=== PATIENT | female | born 1940 | race Caucasian/White ===

== ENCOUNTER 2016-09-15 11:02 | Emergency (ER) | payer MEDICARE, MEDICAID ==
[~2016-09-15] VITALS: Ht 162.6 cm; Wt 79.4 kg
--- NOTE | 2016-09-15 11:44 | ED General ---
General Chief Complaint: General Problems/Pain Stated Complaint: ARTHRITIS Nursing Triage Note: ARRIVED VIA WC WITH COMPLAINTS OF ARTHRITIC PAIN. STATES HER MOTRIN AND TYLENOL IS NOT WORKING. Nursing Sepsis Screen: No Definite Risk Source of Information: Patient Exam Limitations: No Limitations History of Present Illness Time Seen by Provider: 11:42 Initial Comments To ER with worsening pain and stiffness in her wrist, hand, finger, neck and all of her joints. She has a history of rheumatoid arthritis diagnosed by Dr. Christian her primary care provider in [place]. She states that years ago her sedimentation rate was 174. She takes Tylenol and Motrin for this because she states that she does not like to take medications other than natural medications. She has a box full of herbal supplements that she does take with her. She states she's had these symptoms for 26 years but they became worse recently to the point that she needs some steroids today. Timing/Duration: 1 Week Severity: Moderate Allergies and Home Medications Allergies Coded Allergies: Penicillins (Verified Allergy, Severe, RASH, 09/15/16) procaine (Verified Allergy, Severe, HIVES, 09/15/16) meperidine (Verified Adverse Reaction, Intermediate, SLEEP, 09/15/16) Home Medications Allopurinol 300 Mg Tablet, 300 MG PO DAILY, (Reported) Alprazolam 0.5 Mg Tablet, 0.5 MG PO TID PRN for ANXIETY, (Reported) Furosemide 40 Mg Tablet, 40 MG PO BID, (Reported) Glimepiride 4 Mg Tablet, 4 MG PO DAILY, (Reported) Pramipexole 0.125 Mg Tablet, 0.125 MG PO HS, (Reported) Simvastatin 20 Mg Tablet, 20 MG PO HS, (Reported) Constitutional: see HPI EENTM: see HPI Respiratory: no symptoms reported Cardiovascular: no symptoms reported Genitourinary: no symptoms reported Musculoskeletal: see HPI, joint pain Skin: no symptoms reported Psychiatric/Neurological: No Symptoms Reported Hematologic/Lymphatic: No Symptoms Reported Past [place]dt[place]-Skmzzc-Qkdvpr Hx Patient Social History Recent Foreign Travel: No Contact w/Someone Who Travel: No Recent Infectious Disease Expo: No Physical Exam Vital Signs Vital Sign - Last 12Hours 09/15/16 11:30 Temp 98.0 Pulse 106 Resp 16 B/P (MAP) 173/83 Pulse Ox 84 O2 Delivery Room Air Capillary Refill : Less Than 3 Seconds General Appearance: No Apparent Distress, WD/WN Eyes: Bilateral Eye EOMI, Bilateral Eye Normal Inspection, Bilateral Eye PERRL HEENT: PERRL/EOMI, TMs Normal Neck: Full Range of Motion, Normal Inspection Respiratory: No Accessory Muscle Use, No Respiratory Distress Cardiovascular: Regular Rate, Rhythm, Normal Peripheral Pulses Gastrointestinal: Non Tender, Soft Extremity: Other (she does have erythema slightly with some ulnar deviation of the fingers at the MCP joint and enlargement of the MCP joints. AcipHex both hands.) Neurologic/Psychiatric: Alert, Oriented x3, No Motor/Sensory Deficits Skin: Normal Color, Warm/Dry Progress/Results/Core Measures Results/Orders My Orders Orders - AYAAN BROWN APRN Prednisone Tablet (Deltasone Tablet) (09/15/16 11:45) Vital Signs/I&O Vital Sign - Last 12Hours 09/15/16 11:30 Temp 98.0 Pulse 106 Resp 16 B/P (MAP) 173/83 Pulse Ox 84 O2 Delivery Room Air Blood Pressure Mean: 113 Departure Impression Impression: Primary Impression: Rheumatoid arthritis flare Disposition: 01 HOME, SELF-CARE Condition: Stable Departure-Patient Inst. Decision time for Depature: 11:57 Referrals: CHARMAINE CHRISTIAN DO (PCP/Family) Primary Care Physician Patient Instructions: Rheumatoid Arthritis Add. Discharge Instructions: 1. Steroids as directed 2. Return to ER for any concerns such as worsening pain, fevers or worsening swelling 3. Follow-up with Dr. Christian for a referral to rheumatology. All discharge instructions reviewed with patient and/or family. Voiced understanding. Scripts Prednisone (Prednisone) 5 Mg Tablet 50 MG PO UD, #65 TAB Take 50 mg on days 1 and 2 and then reduced by 5 mg daily until gone Prov: AYAAN BROWN APRN 09/15/16 Copy Copies To 1: CHARMAINE CHRISTIAN PETER J APRN Sep 15, 2016 11:44
[2016-09-15] MEDS ORDERED: predniSONE 20 MG TAB PO ONE (11:45)
[2016-09-15] MEDS ORDERED: PRAM0.12 PO (11:47)
[2016-09-15] MEDS ORDERED: ALPR0.5T PO (11:47)
[2016-09-15] MEDS ORDERED: GLIM4TAB PO (11:47)
[2016-09-15] MEDS ORDERED: ALLO300T2 PO (11:47)
[2016-09-15] MEDS ORDERED: FURO40TA4 PO (11:47)
[2016-09-15] MEDS ORDERED: SIMV20TA3 PO (11:47)
[2016-09-15] MEDS ORDERED: PRED5TAB PO (12:01)
[2016-09-15 12:12] VITALS: BP 153/81
== END 2016-09-15 12:12 | disposition home or self-care (01) ==
LOC: EDUNIT# 11:02 → ER 11:04 → EDBD 11:04 → ER 12:12
DX: M06.9 Rheumatoid arthritis, unspecified (principal)
CPT/HCPCS: 99283

== ENCOUNTER → 2017-01-08 | Outpatient (CLI) | payer MEDICARE, MEDICAID ==
[~2017-01-08] MED LIST: ALLO300T2 PO; ALPR0.5T PO; ALPR0.5T7; CHOL100048; DOXY100T2 PO; FURO40TA4 PO; GLIM4TAB PO; INSU100I14; INSU100I29; POTA20TA15; PRAM0.12 PO; PRAM1TAB5; PRD20T; PRED5TAB PO; PROP10TA8; QUET25TA; SIMV20TA3 PO
[2017-01-08 12:02] LABS: BILIRUBIN,URINE NEGATIVE (NEGATIVE); KETONES,URINE NEGATIVE (NEGATIVE); LEUKOCYTE ESTERASE ,URINE 1+ (NEGATIVE); NITRITE,URINE NEGATIVE (NEGATIVE); PH,URINE 5 (5-9); PROTEIN,URINE 3+ (NEGATIVE); UROBILINOGEN,URINE NORMAL (NORMAL)
[2017-01-08 12:12] LABS: SQUAMOUS EPITHELIAL CELL,UR 0-2 /HPF
[2017-01-08 12:24] LABS: ALBUMIN 3.1 GM/DL (3.2-4.5); CALCIUM 9.1 MG/DL (8.5-10.1); CREATININE SERUM 1.95 MG/DL (0.60-1.30); PHOSPHORUS 3.4 MG/DL (2.3-4.7); POTASSIUM 3.8 MMOL/L (3.6-5.0)
[2017-01-08 12:24] LABS: PROTEIN/CREATININE RATIO 2.11
== END ==
LOC: LAB 11:27
PROVIDERS: ATTEND Internal Medicine Nephrology
DX: R60.0 Localized edema (principal); M10.9 Gout, unspecified; N18.4 Chronic kidney disease, stage 4 (severe); I77.6 Arteritis, unspecified
CPT/HCPCS: 36415; 80069; 81000; 82570; 84156; 84550

== ENCOUNTER 2017-01-09 16:01 | Emergency (ER) | payer MEDICARE, MEDICAID ==
[~2017-01-09] VITALS: Ht 160 cm; Wt 72.1 kg
[~2017-01-09 16:01] MED LIST changes: -ALPR0.5T7; -CHOL100048; -DOXY100T2 PO; -INSU100I14; -INSU100I29; -POTA20TA15; -PRAM1TAB5; -PRD20T; -PROP10TA8; -QUET25TA
[2017-01-09] MEDS ORDERED: INSU100I29 (16:24)
[2017-01-09] MEDS ORDERED: PRAM1TAB5 (16:24)
[2017-01-09] MEDS ORDERED: CHOL100048 (16:24)
[2017-01-09] MEDS ORDERED: QUET25TA (16:24)
[2017-01-09] MEDS ORDERED: PRD20T (16:24)
[2017-01-09] MEDS ORDERED: ALPR0.5T7 (16:24)
[2017-01-09] MEDS ORDERED: POTA20TA15 (16:24)
[2017-01-09] MEDS ORDERED: INSU100I14 (16:24)
[2017-01-09] MEDS ORDERED: PROP10TA8 (16:24)
[2017-01-09 16:40] LABS: BASOPHILS % (AUTO) 0 % (0-10); EOSINOPHILS % (AUTO) 0 % (0-10); LYMPHOCYTES % (AUTO) 7 % (12-44); MEAN CORPUSCULAR HEMOGLOBIN 30 PG (25-34); MEAN CORPUSCULAR HGB CONC 32 G/DL (32-36); MEAN CORPUSCULAR VOLUME 93 FL (80-99); MEAN PLATELET VOLUME 11.7 FL (7.4-10.4); MONOCYTES # (AUTO) 0.5 X 10^3 (0.0-1.0); MONOCYTES % (AUTO) 4 % (0-12); NEUTROPHILS # (AUTO) 12.5 X 10^3 (1.8-7.8); NEUTROPHILS % (AUTO) 89 % (42-75); PLATELET COUNT 204 10^3/uL (130-400); RED BLOOD COUNT 3.42 10^6/uL (4.35-5.85); RED CELL DISTRIBUTION WIDTH 15.9 % (10.0-14.5)
[2017-01-09 16:57] LABS: CALCIUM 9.5 MG/DL (8.5-10.1); CREATININE SERUM 1.63 MG/DL (0.60-1.30); MAGNESIUM 1.8 MG/DL (1.8-2.4); POTASSIUM 4.8 MMOL/L (3.6-5.0)
[2017-01-09 17:04] LABS: BAND NEUTROPHILS 0 %; BASOPHILS % (MANUAL) 0 %; EOSINOPHILS % (MANUAL) 0 %; LYMPHOCYTES % (MANUAL) 6 %; NEUTROPHILS % (MANUAL) 93 %
--- NOTE | 2017-01-09 17:09 | Diagnostic Imaging Report ---
Portable upright radiograph of the chest. INDICATION: Renal failure. FINDINGS: The heart size is mildly enlarged with minimal vascular congestion. No focal consolidation. No effusion or pneumothorax. The mediastinum and luis enrique appear unremarkable. IMPRESSION: Cardiomegaly with minimal vascular congestion. Dictated by: Dictated on workstation # [id number]
--- NOTE | 2017-01-09 17:30 | ED General ---
General Chief Complaint: General Problems/Pain Stated Complaint: KIDNEY FAILURE Nursing Triage Note: PT OUT OF CAR BY THIS RN, PT STATES SENT TO ED BY DR KLEIN, STATES NEEDS TO GET FLUID OFF, PT DAUGHTER STATES IS IN STAGE 4 RENAL FAILURE AND LEAKING FLUID FROM SWELLING IN FEET. DAUGHTER STATES HAS ULCER ON R HEEL Nursing Sepsis Screen: No Definite Risk Source of Information: Patient, Family Exam Limitations: No Limitations History of Present Illness Time Seen by Provider: 16:15 Initial Comments This 76-year-old woman presents to the emergency room accompanied by her daughter with complaints of persistent lower extremity edema despite increased Lasix use. She has wounds on her legs that are weeping. She has difficulty with mobility as of the edema. Apparently physical therapy was at the home earlier today and noted the patient to be confused from her baseline. Home health then assess the patient and felt her to be a little confused area daughter also states that her mentation is not at baseline. Patient is technically alert and oriented to person, place, and date. Wound care and contacted Dr. Blanchard, the patient's line tender flakeboard. Nursing staff at the office directed them to come to the emergency room for evaluation. I attempted to personally contact Dr. Cisneros and Dr. Blanchard. Neither providers were in the office. Patient has no fever or other acute complaints. She had lab work done at this facility yesterday. Those labs were reviewed. She is in renal failure with a creatinine of 1.95. Family reports she has stage 4 CKD. Allergies and Home Medications Allergies Coded Allergies: Penicillins (Verified Allergy, Severe, RASH, 09/15/16) procaine (Verified Allergy, Severe, HIVES, 09/15/16) codeine (Verified Allergy, Mild, 01/09/17) morphine (Verified Allergy, Mild, 01/09/17) fentanyl (Verified Allergy, Unknown, 01/09/17) meperidine (Verified Adverse Reaction, Intermediate, SLEEP, 09/15/16) Home Medications Allopurinol 300 Mg Tablet, 300 MG PO DAILY, (Reported) Alprazolam 0.5 Mg Tablet, 0.5 MG PO TID PRN for ANXIETY, (Reported) Alprazolam 0.5 Mg Tablet, (Reported) Cholecalciferol (Vitamin D3) 1,000 Unit Capsule, (Reported) Doxycycline Hyclate 100 Mg Tablet, 100 MG PO BID, #20 Prescribed by: VIC GRACIA on 01/09/17 191 Furosemide 40 Mg Tablet, 80 MG PO BID, (Reported) Insulin Aspart 300 Units/3 Ml Solution, (Reported) Insulin Detemir 100 Unit/1 Ml Insuln.pen, (Reported) Potassium Chloride 20 Meq Tab.er.prt, (Reported) Pramipexole 0.125 Mg Tablet, 0.125 MG PO HS, (Reported) Pramipexole Di-HCl 1 Mg Tablet, (Reported) Prednisone 20 Mg Tab, (Reported) Propranolol HCl 10 Mg Tablet, (Reported) Quetiapine Fumarate 25 Mg Tablet, (Reported) Simvastatin 20 Mg Tablet, 20 MG PO HS, (Reported) Constitutional: weakness EENTM: no symptoms reported Respiratory: no symptoms reported Cardiovascular: see HPI, edema Gastrointestinal: no symptoms reported Genitourinary: see HPI Musculoskeletal: no symptoms reported Skin: see HPI Psychiatric/Neurological: See HPI Hematologic/Lymphatic: No Symptoms Reported Immunological/Allergic: no symptoms reported Past Ljyxmzp-Fsaytg-Waloiq Hx Patient Social History Alcohol Use: Denies Use Recreational Drug Use: No Smoking Status: Former Smoker Recent Foreign Travel: No Contact w/Someone Who Travel: No Recent Infectious Disease Expo: No Recent Hopitalizations: No Physical Abuse: No Sexual Abuse: No Surgeries History of Surgeries: Yes (NERVE FUSION) Surgeries: Appendectomy, Gallbladder, Hysterectomy, Tubal Ligation Respiratory History of Respiratory Disorde: Yes Respiratory Disorders: COPD Cardiovascular History of Cardiac Disorders: No Neurological History of Neurological Disord: No Reproductive System : No Genitourinary History of Genitourinary Disor: Yes Genitourinary Disorders: Renal Failure (CKD) Gastrointestinal History of Gastrointestinal Di: No Musculoskeletal History of Musculoskeletal Dis: Yes Musculoskeletal Disorders: Rheumatoid Arthritis Endocrine History of Endocrine Disorders: Yes Endocrine Disorders: Diabetes, Non-Insulin dep HEENT History of HEENT Disorders: No Cancer History of Cancer: No Psychosocial History of Psychiatric Problem: No Suicide Risk Score: 0 Integumentary History of Skin or Integumenta: No Physical Exam Vital Signs Vital Sign - Last 12Hours 01/09/17 16:05 Temp 97.8 Pulse 71 Resp 18 B/P (MAP) 133/68 Pulse Ox 96 O2 Delivery Nasal Cannula O2 Flow Rate 3.00 Capillary Refill : Less Than 3 Seconds General Appearance: No Apparent Distress, WD/WN HEENT: PERRL/EOMI, Normal ENT Inspection Neck: Normal Inspection Respiratory: Lungs Clear, Normal Breath Sounds, No Accessory Muscle Use, No Respiratory Distress Cardiovascular: Regular Rate, Rhythm, No Murmur Gastrointestinal: Normal Bowel Sounds, Non Tender, Soft Extremity: Pedal Edema (severe pitting lower extremity edema equal bilaterally. Ruptured blisters with weeping on both extremities, especially on the right toes and left heel) Neurologic/Psychiatric: Alert, Oriented x3, Normal Mood/Affect, department specialist II-XII Norm as Tested, Motor Weakness (generalized) Skin: Normal Color, Warm/Dry, Other (patient had ruptured blister ulcer on the second right toe on the dorsal aspect and on the medial left heel. She had some other areas of minor skin breakdown and weeping on the lower legs.) Progress/Results/Core Measures Suspected Sepsis Recent Fever Within 48 Hours: No Infection Criteria Present: None New/Unexplained Altered Menta: No Sepsis Screen: No Definite Risk Sepsis Diagnosis: SIRS Temperature:97.8 Pulse: 71 Respiratory Rate: 18 Laboratory Tests 01/09/17 16:30: White Blood Count 14.0H Blood Pressure 133 /68 Mean: 89 Laboratory Tests 01/09/17 16:30: Creatinine 1.63H, Platelet Count 204 Results/Orders Lab Results Laboratory Tests Test 01/09/17 16:30 01/09/17 18:35 Range/Units White Blood Count 14.0 H 4.3-11.0 10^3/uL Red Blood Count 3.42 L 4.35-5.85 10^6/uL Hemoglobin 10.1 L 11.5-16.0 G/DL Hematocrit 32 L 35-52 % Mean Corpuscular Volume 93 80-99 FL Mean Corpuscular Hemoglobin 30 25-34 PG Mean Corpuscular Hemoglobin Concent 32 32-36 G/DL Red Cell Distribution Width 15.9 H 10.0-14.5 % Platelet Count 204 130-400 10^3/uL Mean Platelet Volume 11.7 H 7.4-10.4 FL Neutrophils (%) (Auto) 89 H 42-75 % Lymphocytes (%) (Auto) 7 L 12-44 % Monocytes (%) (Auto) 4 0-12 % Eosinophils (%) (Auto) 0 0-10 % Basophils (%) (Auto) 0 0-10 % Neutrophils # (Auto) 12.5 H 1.8-7.8 X 10^3 Lymphocytes # (Auto) 1.0 1.0-4.0 X 10^3 Monocytes # (Auto) 0.5 0.0-1.0 X 10^3 Eosinophils # (Auto) 0.0 0.0-0.3 10^3/uL Basophils # (Auto) 0.0 0.0-0.1 10^3/uL Neutrophils % (Manual) 93 % Lymphocytes % (Manual) 6 % Monocytes % (Manual) 1 % Eosinophils % (Manual) 0 % Basophils % (Manual) 0 % Band Neutrophils 0 % Elliptocytes SLIGHT Sodium Level 139 135-145 MMOL/L Potassium Level 4.8 3.6-5.0 MMOL/L Chloride Level 96 L 98-107 MMOL/L Carbon Dioxide Level 29 21-32 MMOL/L Anion Gap 14 5-14 MMOL/L Blood Urea Nitrogen 69 H 7-18 MG/DL Creatinine 1.63 H 0.60-1.30 MG/DL Estimat Glomerular Filtration Rate 31 BUN/Creatinine Ratio 42 Glucose Level 215 H 70-105 MG/DL Calcium Level 9.5 8.5-10.1 MG/DL Magnesium Level 1.8 1.8-2.4 MG/DL B-Type Natriuretic Peptide 194.3 H <100.0 PG/ML Urine Color YELLOW Urine Clarity CLEAR Urine pH 6 5-9 Urine Specific Barlow 1.010 L 1.016-1.022 Urine Protein 3+ H NEGATIVE Urine Glucose (UA) NEGATIVE NEGATIVE Urine Ketones NEGATIVE NEGATIVE Urine Nitrite NEGATIVE NEGATIVE Urine Bilirubin NEGATIVE NEGATIVE Urine Urobilinogen NORMAL NORMAL MG/DL Urine Leukocyte Esterase NEGATIVE NEGATIVE Urine RBC (Auto) 3+ H NEGATIVE Urine RBC 5-10 H /HPF Urine WBC NONE /HPF Urine Crystals PRESENT H /LPF Urine Amorphous Sediment FEW RODRIGO URATES H /LPF Urine Bacteria NONE /HPF Urine Casts NONE /LPF Urine Mucus NEGATIVE /LPF Urine Culture Indicated NO My Orders Orders - VIC VILLATORO MD Basic Metabolic Panel (01/09/17 16:22) Cbc With Automated Diff (01/09/17 16:22) Magnesium (01/09/17 16:22) Ua Culture If Indicated (01/09/17 16:22) Saline Lock/Iv-Start (01/09/17 16:22) BNP (01/09/17 16:25) Chest 1 View, Ap/Pa Only (01/09/17 16:25) Manual Differential (01/09/17 16:30) Vital Signs/I&O Vital Sign - Last 12Hours 01/09/17 16:05 Temp 97.8 Pulse 71 Resp 18 B/P (MAP) 133/68 Pulse Ox 96 O2 Delivery Nasal Cannula O2 Flow Rate 3.00 Capillary Refill : Less Than 3 Seconds Blood Pressure Mean: 89 Progress Note : Progress Note I attempted to contact both Dr. Cisneros and her line tender flakeboard. Neither were available. I did discuss the leg edema and wounds with Dr. Tim. He recommended elevation. Since patient has congestive heart failure, he did not recommend compressive wrapping. Wound culture was collected from the larger blister wound on the left medial heel. Patient was prescribed doxycycline as it should be safe in renal failure. I advised that they contact the line tender flakeboard office tomorrow and asked to speak with the line tender flakeboard or line tender flakeboard on-call regarding further treatment of the edema. See discharge instructions. Patient is already on high-dose diuretics and I did not want to alter that without the line tender flakeboard input. Patient had leukocytosis. Family suspected she had urinary tract infection but UA performed yesterday and again today showed no evidence of UTI. Patient was empirically prescribed doxycycline for suspected skin wounds. They're advised to follow-up with a market research specialist as soon as possible. The phone number for [facility] was provided. Patient remained alert and oriented throughout her ER stay. Diagnostic Imaging Diagonstic Imaging: Xray Plain Films/CT/US/NM/MRI: chest Comments NAME: [facility] REC#: [id number] PT STATUS: REG ER : 1940 PHYSICIAN: VIC VILLATORO MD ADMIT DATE: 01/09/17/ER Signed Date of Exam: 01/09/17 CHEST 1 VIEW, AP/PA ONLY Portable upright radiograph of the chest. INDICATION: Renal failure. FINDINGS: The heart size is mildly enlarged with minimal vascular congestion. No focal consolidation. No effusion or pneumothorax. The mediastinum and luis enrique appear unremarkable. IMPRESSION: Cardiomegaly with minimal vascular congestion. Dictated by: Dictated on workstation # [id number] Dict: 01/09/17 1656 Trans: 01/09/171802 Interpreted by: ITZ VALDES MD Electronically signed by: ITZ VALDES MD 01/09/171802 Departure Impression Impression: Primary Impression: Pitting edema Additional Impressions: Chronic renal failure Qualified Codes: N18.9 - Chronic kidney disease, unspecified Confusion Pressure ulcer of left heel Qualified Codes: L89.629 - Pressure ulcer of left heel, unspecified stage Pressure ulcer of toe Qualified Codes: L89.899 - Pressure ulcer of other site, unspecified stage Leukocytosis Qualified Codes: D72.829 - Elevated white blood cell count, unspecified Disposition: 01 HOME, SELF-CARE Condition: Stable Departure-Patient Inst. Decision time for Depature: 19:12 Referrals: CHARMAINE CISNEROS DO (PCP/Family) Primary Care Physician Patient Instructions: How to Prevent Pressure Ulcers Add. Discharge Instructions: Complete your antibiotics as prescribed. Contact your line tender flakeboard or primary care provider tomorrow to discuss further treatment of edema. Until then, continue with Lasix as previously prescribed. Elevate the lower extremities as much as possible. The best position for draining the edema is to lie flat on a bed with lower legs elevated on multiple pillows such that the level of the lower legs is higher than the level of the heart. Follow-up on the wound culture collected in the ER. Results should be available in about 48 hours. Establish with wound care as soon as possible. The number for [facility] is [phone]. Return to the ER if symptoms worsen, especially if you develop fever greater than 100. Perform daily weights if possible and present a log of daily weights to your line tender flakeboard and primary care provider. Change lower extremity dressings daily or more often if they become soiled. All discharge instructions reviewed with patient and/or family. Voiced understanding. Scripts Doxycycline Hyclate (Doxycycline Hyclate) 100 Mg Tablet 100 MG PO BID, #20 TAB Prov: VIC VILLATORO MD 01/09/17 Copy Copies To 1: CHARMAINE CISNEROS JOSHUA T MD Jan 09, 2017 17:30
[2017-01-09 18:43] LABS: BILIRUBIN,URINE NEGATIVE (NEGATIVE); KETONES,URINE NEGATIVE (NEGATIVE); LEUKOCYTE ESTERASE ,URINE NEGATIVE (NEGATIVE); NITRITE,URINE NEGATIVE (NEGATIVE); PH,URINE 6 (5-9); PROTEIN,URINE 3+ (NEGATIVE); UROBILINOGEN,URINE NORMAL (NORMAL)
[2017-01-09] MEDS ORDERED: DOXY100T2 PO (19:16)
[2017-01-09 19:27] VITALS: BP 139/87
== END 2017-01-09 19:29 | disposition home or self-care (01) ==
LOC: EDUNIT# 16:01 → ER 16:02
DX: L89.629 Pressure ulcer of left heel, unspecified stage (principal); L89.899 Pressure ulcer of other site, unspecified stage; R41.0 Disorientation, unspecified; D72.829 Elevated white blood cell count, unspecified; E11.22 Type 2 diabetes mellitus with diabetic chronic kidney disease; N18.9 Chronic kidney disease, unspecified; J44.9 Chronic obstructive pulmonary disease, unspecified; M06.9 Rheumatoid arthritis, unspecified; Z79.4 Long term (current) use of insulin; Z87.891 Personal history of nicotine dependence; Z90.710 Acquired absence of both cervix and uterus; Z90.49 Acquired absence of other specified parts of digestive tract; Z98.51 Tubal ligation status
CPT/HCPCS: 36415; 71010; 80048; 81000; 83735; 83880; 85007; 85027; 87070; 87077; 87186; 87205

== ENCOUNTER 2017-03-09 11:54 | Inpatient (IN) | payer MEDICARE, MEDICAID ==
[~2017-03-09] VITALS: Ht 160 cm; Wt 71.9 kg
[~2017-03-09 11:54] MED LIST changes: +ALLO100T PO; +ALPR0.5T7; +ATOR10TA66 PO; +CEFD300C3 PO; +CHOL100048 PO; +DOCU-143 PO; +DOXY100T2 PO; +FURO80TA3 PO; +HYDR-3820 PO; +INSU100I14 SC; +INSU100I29 SC; +INSU100V5 SQ; +MELA10CA2 PO; +METO2.5T PO; +NICO4LOZ47 BC; +PANT40TA2 PO; +POTA20TA15 PO; +PRAM0.252 PO; +PRAM1TAB2 PO; +PRAM1TAB5; +PRD20T PO; +PROP10TA8 PO; +QUET25TA PO; +RT-ALBUINH IH; +VITS42.53 TP; +ZINC28PA TP
--- OUTSIDE RECORDS SUMMARY | 2017-03-09 12:07 | XMS REPORT | Continuity of Care Document ---
Author Author [facility] Organization [facility] Address Unknown Phone Unavailable Allergies Active Description Code Type Severity Reaction Onset Reported/Identified Relationship to Patient Clinical Status Yes Penicillins [id number] Drug Allergy Severe RASH 09/15/2016 Yes procaine [id number] Drug Allergy Severe HIVES 09/15/2016 Yes meperidine [id number] Drug Allergy Moderate SLEEP 09/15/2016 Yes No Known Drug Allergies [id number] Drug Allergy Unknown N/A 09/15/2016 Yes codeine [id number] Drug Allergy Mild N/A 01/09/2017 Yes morphine [id number] Drug Allergy Mild N/A 01/09/2017 Yes fentanyl [id number] Drug Allergy Unknown N/A 01/09/2017 Medications There is no data. Problems Date Dx Coded Attending Type Code Diagnosis Diagnosed By 06/21/2015 IZABELLA CALI MD Ot E04.1 NONTOXIC SINGLE THYROID NODULE 06/21/2015 VIRAJ LOZA, IZABELLA Barrios Ot 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, UNSPECIFIED 06/21/2015 IZABELLA CALI MD P Ot R53.83 OTHER FATIGUE 06/21/2015 IZABELLA CALI MD Ot E04.1 NONTOXIC SINGLE THYROID NODULE 06/21/2015 IZABELLA CALI MD Ot 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, UNSPECIFIED 06/21/2015 IZABELLA CALI MD P Ot R53.83 OTHER FATIGUE 07/08/2015 IZABELLA CALI MD Ot E04.1 NONTOXIC SINGLE THYROID NODULE 07/08/2015 IZABELLA CALI MD Ot 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, UNSPECIFIED 07/08/2015 IZABELLA CALI MD Ot R53.83 OTHER FATIGUE 07/20/2015 IZABELLA CALI MD Ot E04.1 NONTOXIC SINGLE THYROID NODULE 07/20/2015 IZABELLA CALI MD Ot 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, UNSPECIFIED 07/20/2015 IZABELLA CALI MD Ot R53.83 OTHER FATIGUE 09/15/2016 AYAAN BROWN WORM RAISER Ot M06.9 RHEUMATOID ARTHRITIS, UNSPECIFIED 09/15/2016 AYAAN BROWN WORM RAISER Ot M25.631 STIFFNESS OF RIGHT WRIST, NOT ELSEWHERE 09/15/2016 IZABELLA CALI MD Ot E04.1 NONTOXIC SINGLE THYROID NODULE 09/15/2016 IZABELLA CALI MD Ot 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, UNSPECIFIED 09/15/2016 IZABELLA CALI MD Ot R53.83 OTHER FATIGUE 09/19/2016 AYAAN BROWN WORM RAISER Ot M06.9 RHEUMATOID ARTHRITIS, UNSPECIFIED 09/19/2016 AYAAN BROWN WORM RAISER Ot M25.631 STIFFNESS OF RIGHT WRIST, NOT ELSEWHERE 01/09/2017 ANTONIA HOUSE MD Ot I77.6 ARTERITIS, UNSPECIFIED 01/09/2017 ANTONIA HOUSE MD, Ot M10.9 GOUT, UNSPECIFIED 01/09/2017 ANTONIA HOUSE MD, Ot N18.4 CHRONIC KIDNEY DISEASE, STAGE 4 (SEVERE) 01/09/2017 ANTONIA HOUSE MD Ot R60.0 LOCALIZED EDEMA 01/09/2017 VIC VILLATORO MD Ot D72.829 ELEVATED WHITE BLOOD CELL COUNT, UNSPECI 01/09/2017 VIC VILLATORO MD Ot 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 01/09/2017 VIC VILLATORO MD, Ot J44.9 CHRONIC OBSTRUCTIVE PULMONARY DISEASE, U 01/09/2017 VIC VILLATORO MD Ot L89.629 PRESSURE ULCER OF LEFT HEEL, UNSPECIFIED 01/09/2017 VIC VILLATORO MD Ot L89.899 PRESSURE ULCER OF OTHER SITE, UNSPECIFIE 01/09/2017 VIC VILLATORO MD Ot M06.9 RHEUMATOID ARTHRITIS, UNSPECIFIED 01/09/2017 VIC VILLATORO MD Ot N18.9 CHRONIC KIDNEY DISEASE, UNSPECIFIED 01/09/2017 VIC VILLATORO MD Ot R41.0 DISORIENTATION, UNSPECIFIED 01/09/2017 VIC VILLATORO MD Ot R60.0 LOCALIZED EDEMA 01/09/2017 VIC VILLATORO MD Ot Z79.4 FLIGHT SUPERINTENDENT (CURRENT) USE OF INSULIN 01/09/2017 VIC VILLATORO MD, Ot Z87.891 PERSONAL HISTORY OF NICOTINE DEPENDENCE 01/09/2017 VIC VILLATORO MD Ot Z90.49 ACQUIRED ABSENCE OF OTHER SPECIFIED PART 01/09/2017 VIC VILLATORO MD, Ot Z90.710 ACQUIRED ABSENCE OF BOTH CERVIX AND UTER 01/09/2017 VIC VILLATORO MD Ot Z98.51 TUBAL LIGATION STATUS 01/30/2017 ANTONIA HOUSE MD Ot I77.6 ARTERITIS, UNSPECIFIED 01/30/2017 ANTONIA HOUSE MD Ot M10.9 GOUT, UNSPECIFIED 01/30/2017 ANTONIA HOUSE MD Ot N18.4 CHRONIC KIDNEY DISEASE, STAGE 4 (SEVERE) 01/30/2017 ANTONIA HOUSE MD Ot R60.0 LOCALIZED EDEMA 02/13/2017 ANTONIA HOUSE MD Ot I77.6 ARTERITIS, UNSPECIFIED 02/13/2017 ANTONIA HOUSE MD Ot M10.9 GOUT, UNSPECIFIED 02/13/2017 ANTONIA HOUSE MD Ot N18.4 CHRONIC KIDNEY DISEASE, STAGE 4 (SEVERE) 02/13/2017 ANTONIA HOUSE MD Ot R60.0 LOCALIZED EDEMA 02/27/2017 IZABELLA CALI MD Ot E04.1 NONTOXIC SINGLE THYROID NODULE 02/27/2017 IZABELLA CALI MD Ot 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, UNSPECIFIED 02/27/2017 VIRAJ LOZA, IZABELLA Barrios Ot R53.83 OTHER FATIGUE 02/27/2017 ANTONIA HOUSE MD Ot I77.6 ARTERITIS, UNSPECIFIED 02/27/2017 ANTONIA HOUSE MD Ot M10.9 GOUT, UNSPECIFIED 02/27/2017 ANTONIA HOUSE MD Ot N18.4 CHRONIC KIDNEY DISEASE, STAGE 4 (SEVERE) 02/27/2017 ANTONIA HOUSE MD Ot R60.0 LOCALIZED EDEMA 02/28/2017 RAMILA LOZA, NIVIA Ackerman Ot A41.9 SEPSIS, UNSPECIFIED ORGANISM 02/28/2017 NIVIA MCGRATH MD Ot A41.9 SEPSIS, UNSPECIFIED ORGANISM 02/28/2017 NIVIA MCGRATH MD, Ot 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 02/28/2017 NIVIA MCGRATH MD, Ot E78.00 PURE HYPERCHOLESTEROLEMIA, UNSPECIFIED 02/28/2017 NIVIA MCGRATH MD, Ot F41.9 ANXIETY DISORDER, UNSPECIFIED 02/28/2017 NIVIA MCGRATH MD Ot G25.81 RESTLESS LEGS SYNDROME 02/28/2017 NIVIA MCGRATH MD Ot I10 ESSENTIAL (PRIMARY) HYPERTENSION 02/28/2017 NIVIA MCGRATH MD, Ot I25.10 ATHSCL HEART DISEASE OF [place] CORONARY 02/28/2017 NIVIA MCGRATH MD, Ot I48.92 UNSPECIFIED ATRIAL FLUTTER 02/28/2017 NIVIA MCGRATH MD, Ot J18.9 PNEUMONIA, UNSPECIFIED ORGANISM 02/28/2017 NIVIA MCGRATH MD, Ot J44.0 CHRONIC OBSTRUCTIVE PULMON DISEASE W ACU 02/28/2017 NIVIA MCGRATH MD, Ot K21.9 GASTRO-ESOPHAGEAL REFLUX DISEASE WITHOUT 02/28/2017 NIVIA MCGRATH MD, Ot M06.9 RHEUMATOID ARTHRITIS, UNSPECIFIED 02/28/2017 NIVIA MCGRATH MD, Ot M10.9 GOUT, UNSPECIFIED 02/28/2017 NIVIA MCGRATH MD, Ot N18.3 CHRONIC KIDNEY DISEASE, STAGE 3 (MODERAT 02/28/2017 NIVIA MCGRATH MD, Ot R53.1 WEAKNESS 02/28/2017 NIVIA MCGRATH MD, Ot Z20.828 CONTACT W AND EXPOSURE TO OTH VIRAL COMM 02/28/2017 NIVIA MCGRATH MD Ot Z79.4 FLIGHT SUPERINTENDENT (CURRENT) USE OF INSULIN 02/28/2017 NIVIA MCGRATH MD Ot Z86.79 PERSONAL HISTORY OF OTHER DISEASES OF TH 03/01/2017 NIVIA MCGRATH MD, Ot A41.9 SEPSIS, UNSPECIFIED ORGANISM 03/01/2017 NIVIA MCGRATH MD Ot 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 03/01/2017 NIVIA MCGRATH MD, Ot E78.00 PURE HYPERCHOLESTEROLEMIA, UNSPECIFIED 03/01/2017 RAMILA MD, NIVIA M Ot F41.9 ANXIETY DISORDER, UNSPECIFIED 03/01/2017 NIVIA MCGRATH MD, Ot G25.81 RESTLESS LEGS SYNDROME 03/01/2017 NIVIA MCGRATH MD, Ot I10 ESSENTIAL (PRIMARY) HYPERTENSION 03/01/2017 NIVIA MCGRATH MD, Ot I25.10 ATHSCL HEART DISEASE OF [place] CORONARY 03/01/2017 NIVIA MCGRATH MD, Ot I48.92 UNSPECIFIED ATRIAL FLUTTER 03/01/2017 NIVIA MCGRATH MD, Ot J18.9 PNEUMONIA, UNSPECIFIED ORGANISM 03/01/2017 NIVIA MCGRATH MD, Ot J44.0 CHRONIC OBSTRUCTIVE PULMON DISEASE W ACU 03/01/2017 NIVIA MCGRATH MD, Ot K21.9 GASTRO-ESOPHAGEAL REFLUX DISEASE WITHOUT 03/01/2017 NIVIA MCGRATH MD, Ot M06.9 RHEUMATOID ARTHRITIS, UNSPECIFIED 03/01/2017 NIVIA MCGRATH MD, Ot M10.9 GOUT, UNSPECIFIED 03/01/2017 NIVIA MCGRATH MD, Ot N18.3 CHRONIC KIDNEY DISEASE, STAGE 3 (MODERAT 03/01/2017 NIVIA MCGRATH MD, Ot R53.1 WEAKNESS 03/01/2017 NIVIA MCGRATH MD, Ot R60.9 EDEMA, UNSPECIFIED 03/01/2017 NIVIA MCGRATH MD, Ot Z20.828 CONTACT W AND EXPOSURE TO OTH VIRAL COMM 03/01/2017 NIVIA MCGRATH MD Ot Z79.4 FLIGHT SUPERINTENDENT (CURRENT) USE OF INSULIN 03/01/2017 NIVIA MCGRATH MD, Ot Z86.79 PERSONAL HISTORY OF OTHER DISEASES OF TH 03/01/2017 NIVIA MCGRATH MD, Ot Z87.891 PERSONAL HISTORY OF NICOTINE DEPENDENCE Procedures There is no data. Results Test Result Range Complete urinalysis with reflex to culture - 01/08/17 11:59 Urine color determination YELLOW NRG Urine clarity determination CLEAR NRG Urine pH measurement by test strip 5 5-9 Specific gravity of urine by test strip 1.010 1.016- 1.022 Urine protein assay by test strip, semi-quantitative 3+ NEGATIVE Urine glucose detection by automated test strip 3+ NEGATIVE Erythrocytes detection in urine sediment by light microscopy 3+ NEGATIVE Urine ketones detection by automated test strip NEGATIVE NEGATIVE Urine nitrite detection by test strip NEGATIVE NEGATIVE Urine total bilirubin detection by test strip NEGATIVE NEGATIVE Urine urobilinogen measurement by automated test strip (mass/volume) NORMAL NORMAL Urine leukocyte esterase detection by dipstick 1+ NEGATIVE Automated urine sediment erythrocyte count by microscopy (number/high power field) [HPF] NRG Automated urine sediment leukocyte count by microscopy (number/high power field ) [HPF] NRG Bacteria detection in urine sediment by light microscopy NEGATIVE NRG Squamous epithelial cells detection in urine sediment by light microscopy 0-2 NRG Crystals detection in urine sediment by light microscopy NONE NRG Casts detection in urine sediment by light microscopy PRESENT NRG Mucus detection in urine sediment by light microscopy NEGATIVE NRG Complete urinalysis with reflex to culture NO NRG Hyaline casts detection in urine sediment by light microscopy 2-5 NRG Urine protein/creatinine mass ratio - 01/08/17 11:59 Urine protein measurement (mass/volume) 57 mg/dL 6-12 Urine creatinine measurement (mass/volume) 27 mg/dL 30- 125 Urine protein/creatinine mass ratio 2.11 NRG Serum or plasma renal function panel (Na, K, Cl, CO2, BUN, Cr, glucose,Ca, phos , alb) - 01/08/17 12:00 Serum or plasma sodium measurement (moles/volume) 136 mmol/L 135-145 Serum or plasma potassium measurement (moles/volume) 3.8 mmol/L 3.6-5.0 Serum or plasma chloride measurement (moles/volume) 95 mmol/L 98-107 Carbon dioxide 29 mmol/L 21-32 Serum or plasma anion gap determination (moles/volume) 12 mmol/L 5-14 Serum or plasma urea nitrogen measurement (mass/volume) 75 mg/dL 7-18 Serum or plasma creatinine measurement (mass/volume) 1.95 mg/dL 0.60-1.30 Serum or plasma urea nitrogen/creatinine mass ratio 38 NRG Serum or plasma creatinine measurement with calculation of estimated glomerular filtration rate 25 NRG Serum or plasma glucose measurement (mass/volume) 416 mg/dL 70-105 Serum or plasma calcium measurement (mass/volume) 9.1 mg/dL 8.5-10.1 Serum or plasma albumin measurement (mass/volume) 3.1 g/dL 3.2-4.5 Serum or plasma phosphate measurement (mass/volume) 3.4 mg/dL 2.3-4.7 Serum or plasma uric acid measurement (mass/volume) - 01/08/17 12:00 Serum or plasma uric acid measurement (mass/volume) 6.0 mg/dL 2.6-7.2 Complete blood count (CBC) with automated white blood cell (WBC) differential - 01/09/17 16:30 Blood leukocytes automated count (number/volume) 14.0 10*3/uL 4.3-11.0 Blood erythrocytes automated count (number/volume) 3.42 10*6/uL 4.35-5.85 Venous blood hemoglobin measurement (mass/volume) 10.1 g/dL 11.5-16.0 Blood hematocrit (volume fraction) 32 % 35-52 Automated erythrocyte mean corpuscular volume 93 [foz_us] 80-99 Automated erythrocyte mean corpuscular hemoglobin (mass per erythrocyte) 30 pg 25-34 Automated erythrocyte mean corpuscular hemoglobin concentration measurement ( mass/volume) 32 g/dL 32-36 Automated erythrocyte distribution width ratio 15.9 % 10.0-14.5 Automated blood platelet count (count/volume) 204 10*3/uL 130-400 Automated blood platelet mean volume measurement 11.7 [foz_us] 7.4-10.4 Automated blood neutrophils/100 leukocytes 89 % 42-75 Automated blood lymphocytes/100 leukocytes 7 % 12-44 Blood monocytes/100 leukocytes 4 % 0-12 Automated blood eosinophils/100 leukocytes 0 % 0-10 Automated blood basophils/100 leukocytes 0 % 0-10 Blood neutrophils automated count (number/volume) 12.5 10*3 1.8-7.8 Blood lymphocytes automated count (number/volume) 1.0 10*3 1.0-4.0 Blood monocytes automated count (number/volume) 0.5 10*3 0.0-1.0 Automated eosinophil count 0.0 10*3/uL 0.0-0.3 Automated blood basophil count (count/volume) 0.0 10*3/uL 0.0-0.1 Whole blood basic metabolic panel - 01/09/17 16:30 Serum or plasma sodium measurement (moles/volume) 139 mmol/L 135-145 Serum or plasma potassium measurement (moles/volume) 4.8 mmol/L 3.6-5.0 Serum or plasma chloride measurement (moles/volume) 96 mmol/L 98-107 Carbon dioxide 29 mmol/L 21-32 Serum or plasma anion gap determination (moles/volume) 14 mmol/L 5-14 Serum or plasma urea nitrogen measurement (mass/volume) 69 mg/dL 7-18 Serum or plasma creatinine measurement (mass/volume) 1.63 mg/dL 0.60-1.30 Serum or plasma urea nitrogen/creatinine mass ratio 42 NRG Serum or plasma creatinine measurement with calculation of estimated glomerular filtration rate 31 NRG Serum or plasma glucose measurement (mass/volume) 215 mg/dL 70-105 Serum or plasma calcium measurement (mass/volume) 9.5 mg/dL 8.5-10.1 Magnesium - 01/09/17 16:30 Magnesium 1.8 mg/dL 1.8-2.4 Blood manual differential performed detection - 01/09/17 16:30 Blood monocytes/100 leukocytes 1 % NRG Manual blood segmented neutrophils/100 leukocytes 93 % NRG Blood band neutrophils/100 leukocytes 0 % NRG Manual blood lymphocytes/100 leukocytes 6 % NRG Manual eosinophils/100 leukocytes in nose 0 % NRG Manual blood basophils/100 leukocytes 0 % NRG Blood ovalocytes detection by light microscopy SLIGHT NRG Serum or plasma lithium measurement (moles/volume) - 01/09/17 16:30 BNP level 194.3 pg/mL <100.0 Complete urinalysis with reflex to culture - 01/09/17 18:35 Urine color determination YELLOW NRG Urine clarity determination CLEAR NRG Urine pH measurement by test strip 6 5-9 Specific gravity of urine by test strip 1.010 1.016- 1.022 Urine protein assay by test strip, semi-quantitative 3+ NEGATIVE Urine glucose detection by automated test strip NEGATIVE NEGATIVE Erythrocytes detection in urine sediment by light microscopy 3+ NEGATIVE Urine ketones detection by automated test strip NEGATIVE NEGATIVE Urine nitrite detection by test strip NEGATIVE NEGATIVE Urine total bilirubin detection by test strip NEGATIVE NEGATIVE Urine urobilinogen measurement by automated test strip (mass/volume) NORMAL NORMAL Urine leukocyte esterase detection by dipstick NEGATIVE NEGATIVE Automated urine sediment erythrocyte count by microscopy (number/high power field) [HPF] NRG Automated urine sediment leukocyte count by microscopy (number/high power field ) NONE NRG Bacteria detection in urine sediment by light microscopy NONE NRG Crystals detection in urine sediment by light microscopy PRESENT NRG Casts detection in urine sediment by light microscopy NONE NRG Mucus detection in urine sediment by light microscopy NEGATIVE NRG Complete urinalysis with reflex to culture NO NRG Amorphous sediment detection in urine sediment by light microscopy FEW RODRIGO URATES NRG Gram stain microscopy - 01/09/17 19:01 GRAM STAIN RESULT NUMEROUS GRAM POSITIVE COCCI RESEMBLING STAPH NRG Bacteria identification in wound by culture - 01/09/17 19:01 Bacteria identification in wound by culture [id number] NRG FREE TEXT EXTERNAL SENSITIVITY REPORTED 01/11/17 10:50 NRG QUANTITY OF GROWTH Abundant Growth NRG MRSA AGAR MRSA isolated (Screening test for MRSA is positive) NRG CALL POSITIVES (F1 HELP) CALLED TO [facility], ER 01/11/17 12:15 BY S.T. NRG Bacterial susceptibility panel - 01/09/17 19:01 Oxacillin susceptibility test by minimum inhibitory concentration > = NRG Gentamicin susceptibility test by minimum inhibitory concentration < = NRG Clindamycin susceptibility test by minimum inhibitory concentration >= NRG Erythromycin susceptibility test by minimum inhibitory concentration >= NRG Trimethoprim/sulfamethoxazole susceptibility test by minimum inhibitoryconcentration S NRG Vancomycin susceptibility test by minimum inhibitory concentration 1 NRG Levofloxacin susceptibility test by minimum inhibitory concentration 4 NRG Rifampin susceptibility test by minimum inhibitory concentration <= NRG Tetracycline susceptibility test by minimum inhibitory concentration >= NRG Ciprofloxacin susceptibility test by minimum inhibitory concentration R NRG Influenza virus A and B antigen detection - 02/27/17 12:10 FLU RESULT NEGATIVE FOR INFLUENZA A AND B ANTIGENS BY IA NRG Complete blood count (CBC) with automated white blood cell (WBC) differential - 02/27/17 12:14 Blood leukocytes automated count (number/volume) 17.5 10*3/uL 4.3-11.0 Blood erythrocytes automated count (number/volume) 3.48 10*6/uL 4.35-5.85 Venous blood hemoglobin measurement (mass/volume) 10.4 g/dL 11.5-16.0 Blood hematocrit (volume fraction) 32 % 35-52 Automated erythrocyte mean corpuscular volume 93 [foz_us] 80-99 Automated erythrocyte mean corpuscular hemoglobin (mass per erythrocyte) 30 pg 25-34 Automated erythrocyte mean corpuscular hemoglobin concentration measurement ( mass/volume) 32 g/dL 32-36 Automated erythrocyte distribution width ratio 16.4 % 10.0-14.5 Automated blood platelet count (count/volume) 181 10*3/uL 130-400 Automated blood platelet mean volume measurement 10.7 [foz_us] 7.4-10.4 Automated blood neutrophils/100 leukocytes 85 % 42-75 Automated blood lymphocytes/100 leukocytes 10 % 12-44 Blood monocytes/100 leukocytes 5 % 0-12 Automated blood eosinophils/100 leukocytes 0 % 0-10 Automated blood basophils/100 leukocytes 0 % 0-10 Blood neutrophils automated count (number/volume) 14.9 10*3 1.8-7.8 Blood lymphocytes automated count (number/volume) 1.7 10*3 1.0-4.0 Blood monocytes automated count (number/volume) 0.8 10*3 0.0-1.0 Automated eosinophil count 0.0 10*3/uL 0.0-0.3 Automated blood basophil count (count/volume) 0.1 10*3/uL 0.0-0.1 Blood lactic acid measurement (moles/volume) - 02/27/17 12:14 Blood lactic acid measurement (moles/volume) 1.05 mmol/L 0.50-2.00 PT panel in platelet poor plasma by coagulation assay - 02/27/17 12:14 Prothrombin time (PT) in platelet poor plasma by coagulation assay 12.8 s 12.2-14.7 INR in platelet poor plasma or blood by coagulation assay 1.0 0.8-1.4 Activated partial thromboplastin time (aPTT) in platelet poor plasma bycoagulation assay - 02/27/17 12:14 Activated partial thromboplastin time (aPTT) in platelet poor plasma bycoagulation assay 26 s 24-35 Comprehensive metabolic panel - 02/27/17 12:14 Serum or plasma sodium measurement (moles/volume) 140 mmol/L 135-145 Serum or plasma potassium measurement (moles/volume) 3.4 mmol/L 3.6-5.0 Serum or plasma chloride measurement (moles/volume) 91 mmol/L 98-107 Carbon dioxide 34 mmol/L 21-32 Serum or plasma anion gap determination (moles/volume) 15 mmol/L 5-14 Serum or plasma urea nitrogen measurement (mass/volume) 108 mg/dL 7-18 Serum or plasma creatinine measurement (mass/volume) 1.67 mg/dL 0.60-1.30 Serum or plasma urea nitrogen/creatinine mass ratio 65 NRG Serum or plasma creatinine measurement with calculation of estimated glomerular filtration rate 30 NRG Serum or plasma glucose measurement (mass/volume) 68 mg/dL 70-105 Serum or plasma calcium measurement (mass/volume) 9.1 mg/dL 8.5-10.1 Serum or plasma total bilirubin measurement (mass/volume) 0.4 mg/dL 0.1-1.0 Serum or plasma alkaline phosphatase measurement (enzymatic activity/volume) 72 U/L 40-136 Serum or plasma aspartate aminotransferase measurement (enzymatic activity/ volume) 21 U/L 5-34 Serum or plasma alanine aminotransferase measurement (enzymatic activity/volume ) 17 U/L 0-55 Serum or plasma protein measurement (mass/volume) 5.1 g/dL 6.4-8.2 Serum or plasma albumin measurement (mass/volume) 3.3 g/dL 3.2-4.5 Blood manual differential performed detection - 02/27/17 12:14 Blood monocytes/100 leukocytes 1 % NRG Manual blood segmented neutrophils/100 leukocytes 82 % NRG Blood band neutrophils/100 leukocytes 10 % NRG Manual blood lymphocytes/100 leukocytes 7 % NRG Manual eosinophils/100 leukocytes in nose 0 % NRG Manual blood basophils/100 leukocytes 0 % NRG Blood anisocytosis detection by light microscopy SLIGHT NRG Blood ovalocytes detection by light microscopy SLIGHT NRG Bacterial blood culture - 02/27/17 12:14 Bacterial blood culture NG NRG Bacterial blood culture - 02/27/17 12:37 Bacterial blood culture NG NRG Capillary blood glucose measurement by glucometer (mass/volume) - 02/27/17 13: 38 Capillary blood glucose measurement by glucometer (mass/volume) 193 mg/dL 70-110 Complete urinalysis with reflex to culture - 02/27/17 15:09 Urine color determination YELLOW NRG Urine clarity determination CLEAR NRG Urine pH measurement by test strip 6 5-9 Specific gravity of urine by test strip 1.010 1.016- 1.022 Urine protein assay by test strip, semi-quantitative 2+ NEGATIVE Urine glucose detection by automated test strip NEGATIVE NEGATIVE Erythrocytes detection in urine sediment by light microscopy 2+ NEGATIVE Urine ketones detection by automated test strip NEGATIVE NEGATIVE Urine nitrite detection by test strip NEGATIVE NEGATIVE Urine total bilirubin detection by test strip NEGATIVE NEGATIVE Urine urobilinogen measurement by automated test strip (mass/volume) NORMAL NORMAL Urine leukocyte esterase detection by dipstick 1+ NEGATIVE Automated urine sediment erythrocyte count by microscopy (number/high power field) [HPF] NRG Automated urine sediment leukocyte count by microscopy (number/high power field ) [HPF] NRG Bacteria detection in urine sediment by light microscopy TRACE NRG Squamous epithelial cells detection in urine sediment by light microscopy 0-2 NRG Crystals detection in urine sediment by light microscopy NONE NRG Casts detection in urine sediment by light microscopy NONE NRG Mucus detection in urine sediment by light microscopy NEGATIVE NRG Complete urinalysis with reflex to culture NO NRG Bacterial blood culture - 02/27/17 18:15 Bacterial blood culture NG NRG Bacterial blood culture - 02/27/17 18:25 Bacterial blood culture NG NRG Capillary blood glucose measurement by glucometer (mass/volume) - 02/27/17 21: 05 Capillary blood glucose measurement by glucometer (mass/volume) 245 mg/dL 70-110 Complete blood count (CBC) with automated white blood cell (WBC) differential - 02/28/17 06:04 Blood leukocytes automated count (number/volume) 12.2 10*3/uL 4.3-11.0 Blood erythrocytes automated count (number/volume) 3.06 10*6/uL 4.35-5.85 Venous blood hemoglobin measurement (mass/volume) 9.0 g/dL 11.5-16.0 Blood hematocrit (volume fraction) 29 % 35-52 Automated erythrocyte mean corpuscular volume 94 [foz_us] 80-99 Automated erythrocyte mean corpuscular hemoglobin (mass per erythrocyte) 29 pg 25-34 Automated erythrocyte mean corpuscular hemoglobin concentration measurement ( mass/volume) 31 g/dL 32-36 Automated erythrocyte distribution width ratio 16.4 % 10.0-14.5 Automated blood platelet count (count/volume) 154 10*3/uL 130-400 Automated blood platelet mean volume measurement 11.1 [foz_us] 7.4-10.4 Automated blood neutrophils/100 leukocytes 84 % 42-75 Automated blood lymphocytes/100 leukocytes 11 % 12-44 Blood monocytes/100 leukocytes 4 % 0-12 Automated blood eosinophils/100 leukocytes 0 % 0-10 Automated blood basophils/100 leukocytes 0 % 0-10 Blood neutrophils automated count (number/volume) 10.2 10*3 1.8-7.8 Blood lymphocytes automated count (number/volume) 1.4 10*3 1.0-4.0 Blood monocytes automated count (number/volume) 0.5 10*3 0.0-1.0 Automated eosinophil count 0.0 10*3/uL 0.0-0.3 Automated blood basophil count (count/volume) 0.0 10*3/uL 0.0-0.1 Blood lactic acid measurement (moles/volume) - 02/28/17 06:04 Blood lactic acid measurement (moles/volume) 0.99 mmol/L 0.50-2.00 Comprehensive metabolic panel - 02/28/17 06:04 Serum or plasma sodium measurement (moles/volume) 144 mmol/L 135-145 Serum or plasma potassium measurement (moles/volume) 3.2 mmol/L 3.6-5.0 Serum or plasma chloride measurement (moles/volume) 98 mmol/L 98-107 Carbon dioxide 31 mmol/L 21-32 Serum or plasma anion gap determination (moles/volume) 15 mmol/L 5-14 Serum or plasma urea nitrogen measurement (mass/volume) 91 mg/dL 7-18 Serum or plasma creatinine measurement (mass/volume) 1.41 mg/dL 0.60-1.30 Serum or plasma urea nitrogen/creatinine mass ratio 65 NRG Serum or plasma creatinine measurement with calculation of estimated glomerular filtration rate 36 NRG Serum or plasma glucose measurement (mass/volume) 55 mg/dL 70-105 Serum or plasma calcium measurement (mass/volume) 8.8 mg/dL 8.5-10.1 Serum or plasma total bilirubin measurement (mass/volume) 0.3 mg/dL 0.1-1.0 Serum or plasma alkaline phosphatase measurement (enzymatic activity/volume) 61 U/L 40-136 Serum or plasma aspartate aminotransferase measurement (enzymatic activity/ volume) 17 U/L 5-34 Serum or plasma alanine aminotransferase measurement (enzymatic activity/volume ) 14 U/L 0-55 Serum or plasma protein measurement (mass/volume) 4.9 g/dL 6.4-8.2 Serum or plasma albumin measurement (mass/volume) 2.7 g/dL 3.2-4.5 Capillary blood glucose measurement by glucometer (mass/volume) - 02/28/17 06: 17 Capillary blood glucose measurement by glucometer (mass/volume) 60 mg/dL 70-110 Capillary blood glucose measurement by glucometer (mass/volume) - 02/28/17 06: 44 Capillary blood glucose measurement by glucometer (mass/volume) 113 mg/dL 70-110 Capillary blood glucose measurement by glucometer (mass/volume) - 02/28/17 11: 13 Capillary blood glucose measurement by glucometer (mass/volume) 160 mg/dL 70-110 Capillary blood glucose measurement by glucometer (mass/volume) - 02/28/17 16: 35 Capillary blood glucose measurement by glucometer (mass/volume) 388 mg/dL 70-110 Capillary blood glucose measurement by glucometer (mass/volume) - 02/28/17 21: 13 Capillary blood glucose measurement by glucometer (mass/volume) 431 mg/dL 70-110 Capillary blood glucose measurement by glucometer (mass/volume) - 03/01/17 05: 13 Capillary blood glucose measurement by glucometer (mass/volume) 27 mg/dL 70-110 Capillary blood glucose measurement by glucometer (mass/volume) - 03/01/17 05: 23 Capillary blood glucose measurement by glucometer (mass/volume) 170 mg/dL 70-110 Capillary blood glucose measurement by glucometer (mass/volume) - 03/01/17 05: 36 Capillary blood glucose measurement by glucometer (mass/volume) 127 mg/dL 70-110 Capillary blood glucose measurement by glucometer (mass/volume) - 03/01/17 05: 50 Capillary blood glucose measurement by glucometer (mass/volume) 146 mg/dL 70-110 Capillary blood glucose measurement by glucometer (mass/volume) - 03/01/17 06: 11 Capillary blood glucose measurement by glucometer (mass/volume) 159 mg/dL 70-110 Complete blood count (CBC) with automated white blood cell (WBC) differential - 03/01/17 06:25 Blood leukocytes automated count (number/volume) 11.1 10*3/uL 4.3-11.0 Blood erythrocytes automated count (number/volume) 2.90 10*6/uL 4.35-5.85 Venous blood hemoglobin measurement (mass/volume) 8.5 g/dL 11.5-16.0 Blood hematocrit (volume fraction) 28 % 35-52 Automated erythrocyte mean corpuscular volume 95 [foz_us] 80-99 Automated erythrocyte mean corpuscular hemoglobin (mass per erythrocyte) 29 pg 25-34 Automated erythrocyte mean corpuscular hemoglobin concentration measurement ( mass/volume) 31 g/dL 32-36 Automated erythrocyte distribution width ratio 16.4 % 10.0-14.5 Automated blood platelet count (count/volume) 135 10*3/uL 130-400 Automated blood platelet mean volume measurement 10.8 [foz_us] 7.4-10.4 Automated blood neutrophils/100 leukocytes 89 % 42-75 Automated blood lymphocytes/100 leukocytes 7 % 12-44 Blood monocytes/100 leukocytes 4 % 0-12 Automated blood eosinophils/100 leukocytes 0 % 0-10 Automated blood basophils/100 leukocytes 0 % 0-10 Blood neutrophils automated count (number/volume) 9.8 10*3 1.8-7.8 Blood lymphocytes automated count (number/volume) 0.7 10*3 1.0-4.0 Blood monocytes automated count (number/volume) 0.5 10*3 0.0-1.0 Automated eosinophil count 0.0 10*3/uL 0.0-0.3 Automated blood basophil count (count/volume) 0.0 10*3/uL 0.0-0.1 Whole blood basic metabolic panel - 03/01/17 06:25 Serum or plasma sodium measurement (moles/volume) 140 mmol/L 135-145 Serum or plasma potassium measurement (moles/volume) 3.0 mmol/L 3.6-5.0 Serum or plasma chloride measurement (moles/volume) 97 mmol/L 98-107 Carbon dioxide 29 mmol/L 21-32 Serum or plasma anion gap determination (moles/volume) 14 mmol/L 5-14 Serum or plasma urea nitrogen measurement (mass/volume) 75 mg/dL 7-18 Serum or plasma creatinine measurement (mass/volume) 1.39 mg/dL 0.60-1.30 Serum or plasma urea nitrogen/creatinine mass ratio 54 NRG Serum or plasma creatinine measurement with calculation of estimated glomerular filtration rate 37 NRG Serum or plasma glucose measurement (mass/volume) 129 mg/dL 70-105 Serum or plasma calcium measurement (mass/volume) 8.8 mg/dL 8.5-10.1 Capillary blood glucose measurement by glucometer (mass/volume) - 03/01/17 06: 42 Capillary blood glucose measurement by glucometer (mass/volume) 187 mg/dL 70-110 Capillary blood glucose measurement by glucometer (mass/volume) - 03/01/17 07: 50 Capillary blood glucose measurement by glucometer (mass/volume) 266 mg/dL 70-110 Capillary blood glucose measurement by glucometer (mass/volume) - 03/01/17 09: 58 Capillary blood glucose measurement by glucometer (mass/volume) 219 mg/dL 70-110 Capillary blood glucose measurement by glucometer (mass/volume) - 03/01/17 11: 39 Capillary blood glucose measurement by glucometer (mass/volume) 320 mg/dL 70-110 Capillary blood glucose measurement by glucometer (mass/volume) - 03/01/17 16: 25 Capillary blood glucose measurement by glucometer (mass/volume) 366 mg/dL 70-110 Encounters ACCT No. Visit Date/Time Discharge Status Pt. Type Provider Facility Loc./Unit Complaint [id number] 02/27/2017 16:41:00 03/01/2017 17:20:00 DIS Inpatient RAMILA LOZA, NIVIA Ackerman [facility] 4TH SEPSIS,RLL PNEUMONIA, INFLUENZA EXPOSURE,CICD,DM, [id number] 01/09/2017 16:02:00 01/09/2017 19:29:00 DIS Emergency SHUANA LOZA, VIC Barron [facility] ER KIDNEY FAILURE [id number] 01/08/2017 11:27:00 01/08/2017 23:59:59 CLS Outpatient LACY LOZA, ANTONIA [facility] LAB N18.4,R60.0 [id number] 09/15/2016 11:04:00 09/15/2016 12:12:00 DIS Emergency AYAAN BROWN APRN [facility] ER ARTHRITIS [id number] 06/18/2015 12:05:00 06/18/2015 23:59:59 CLS Outpatient VIRAJ LOZA, IZABELLA Barrios [facility] RAD RIGHT THYROID NODULE, HAIR LOSS
--- NOTE | 2017-03-09 12:52 | ED General ---
General Chief Complaint: Respiratory Problems Stated Complaint: AMS;DECREASED O2 Source of Information: Patient Exam Limitations: No Limitations History of Present Illness Date Seen by Provider: Mar 09, 2017 Time Seen by Provider: 12:43 Initial Comments Patient presents to ER by private conveyance with chief complaint she woke up this morning feeling awful with body aches, nasal congestion, productive cough, shortness of air, worsening swelling in her bilateral lower extremities. She does have a history of heart failure and uses Lasix 80 mg daily which she says she's been taking. She says her chest does ache but nothing like in the past. She feels very weak and tired and unable to motivate. She has no nausea, vomiting, diarrhea, constipation, rash. No sick contacts. Allergies and Home Medications Allergies Coded Allergies: Penicillins (Verified Allergy, Severe, RASH, 09/15/16) procaine (Verified Allergy, Severe, HIVES, 09/15/16) codeine (Verified Allergy, Mild, 01/09/17) morphine (Verified Allergy, Mild, 01/09/17) fentanyl (Verified Allergy, Unknown, 01/09/17) meperidine (Verified Adverse Reaction, Intermediate, SLEEP, 09/15/16) Home Medications Acetaminophen 325 Mg Tablet, 325-650 MG PO Q6H PRN for PAIN-MILD, (Reported) Albuterol Sulfate 1 Puff Puff, 2 PUFF IH QID PRN for SHORTNESS OF BREATH, ( Reported) 1 PUFF = 90 MCG Allopurinol 100 Mg Tablet, 100 MG PO DAILY, (Reported) Alprazolam 0.5 Mg Tablet, 0.5 MG PO TID PRN for ANXIETY, (Reported) Atorvastatin Calcium 10 Mg Tablet, 10 MG PO HS, (Reported) Cholecalciferol (Vitamin D3) 1,000 Unit Capsule, 1,000 UNITS PO DAILY, (Reported ) Docusate Sodium 100 Mg Capsule, 100 MG PO HS PRN for CONSTIPATION-1ST LINE, ( Reported) Furosemide 80 Mg Tablet, 80 MG PO BID, (Reported) Guaifenesin/Dextromethorphan 237 Ml Liquid, 5 ML PO Q4H PRN for COUGH/CONGESTION , (Reported) Insulin Aspart 300 Units/3 Ml Solution, SC ACHS, (Reported) 151-200 = 2 UNITS 201-250 = 4 UNITS 251-300 = 6 UNITS 301-350 = 8 UNITS 351- 400 =10 UNITS >400 = CALL PHYSICIAN Insulin Determir 1,000 Units/10 Ml Soln, 10 UNITS SQ DAILY, (Reported) Melatonin 10 Mg Capsule, 10 MG PO HS PRN for INSOMNIA, (Reported) Metolazone 2.5 Mg Tablet, 2.5 MG PO DAILY, (Reported) Nicotine Polacrilex 4 Mg Lozenge, 4 MG BC Q6H PRN for SMOKING CESSATION, ( Reported) Pantoprazole Sodium 40 Mg Tablet.dr, 40 MG PO DAILY, (Reported) Potassium Chloride 20 Meq Tab.er.prt, 20 MEQ PO BID, (Reported) Pramipexole Di-HCl 1 Mg Tablet, 1 MG PO HS, (Reported) Pramipexole Di-HCl 0.25 Mg Tablet, 0.25 MG PO HS, (Reported) Prednisone 20 Mg Tab, 30 MG PO DAILY, (Reported) Propranolol HCl 10 Mg Tablet, 10 MG PO DAILY, (Reported) Quetiapine Fumarate 25 Mg Tablet, 25 MG PO HS, (Reported) Vits A and D/White Pet/Lanolin 42.5 Gm Oint...g., TP DAILY, (Reported) APPLY TO LEGS FOR DRY SKIN Zinc Oxide 28 Gm Oint, TP TID, (Reported) CLEANSE INDRA CLEFT WITH SOAP AND WATER, PAT DRY, AND APPLY THREE TIMES PER DAY Constitutional: chills, diaphoresis, No fever, malaise, weakness EENTM: No ear discharge, No ear pain Respiratory: cough, phlegm, short of breath, wheezing Cardiovascular: No chest pain, edema, No palpitations Gastrointestinal: No abdominal pain, No constipation, No diarrhea, No nausea, No vomiting Genitourinary: No discharge, No dysuria Skin: No pruritus, No rash Past Yojlgku-Cmtkje-Yukslg Hx Patient Social History 2nd Hand Smoke Exposure: No Recent Foreign Travel: No Contact w/Someone Who Travel: No Recent Hopitalizations: No Immunizations Up To Date Tetanus Booster (TDap): Unknown Date of Pneumonia Vaccine: Dec 28, 2016 Date of Influenza Vaccine: Dec 12, 2016 Seasonal Allergies Seasonal Allergies: No Surgeries History of Surgeries: Yes (NERVE FUSION) Surgeries: Appendectomy, Gallbladder, Hysterectomy, Tubal Ligation Respiratory History of Respiratory Disorde: Yes Respiratory Disorders: Pneumonia, COPD Currently Using CPAP: No Currently Using BIPAP: No Cardiovascular History of Cardiac Disorders: Yes (atrial flutter (per [facility] records), heart failure, arteritis) Cardiac Disorders: Chronic Edema/Swelling, Coronary Artery Disease, High Cholesterol, Hypertension Neurological History of Neurological Disord: Yes (Restless leg syndrome, generalized muscle weakness) Genitourinary History of Genitourinary Disor: Yes Genitourinary Disorders: Renal Failure Gastrointestinal History of Gastrointestinal Di: Yes Gastrointestinal Disorders: Gastroesophageal Reflux Musculoskeletal History of Musculoskeletal Dis: Yes Musculoskeletal Disorders: Rheumatoid Arthritis, Gout Endocrine History of Endocrine Disorders: Yes Endocrine Disorders: Diabetes, Insulin dep HEENT History of HEENT Disorders: No Cancer History of Cancer: No Psychosocial History of Psychiatric Problem: Yes Behavioral Health Disorders: Anxiety Integumentary History of Skin or Integumenta: No Blood Transfusions History of Blood Disorders: Yes (anemia) Family Medical History Significant Family History: No Pertinent Family Hx Family Medial History: Patient reports no known family medical history. Physical Exam-Suspected Sepsis Physical Exam Vital Signs Vital Sign - Last 12Hours 03/09/17 14:09 Pulse Ox 93 O2 Delivery Nasal Cannula O2 Flow Rate 4.00 Capillary Refill : General Appearance: WD/WN, Mild Distress Eyes: Bilateral Eye Normal Inspection, Bilateral Eye PERRL, Bilateral Eye EOMI HEENT: PERRL/EOMI, TMs Normal, Normal ENT Inspection, Other (oropharynx mucosa is very dry; pulse teeth present) Neck: Normal Inspection, Non Tender Respiratory: Chest Non Tender, No Accessory Muscle Use, No Respiratory Distress , Rales (rales on the left), No Wheezing Cardiovascular: Regular Rate, Rhythm, Normal Peripheral Pulses Gastrointestinal: Normal Bowel Sounds, Non Tender, Soft Extremity: Normal Capillary Refill, Non Tender, No Calf Tenderness, Pedal Edema (bilateral 1+ pitting) Neurologic/Psychiatric: Alert, Oriented x3 Skin: normal color, warm/dry Lymphatic: No Adenopathy Focused Exam Evaluation Lactate Level Laboratory Tests 03/09/17 12:25: Lactic Acid Level 1.77 Lactic Acid Level Progress/Results/Core Measures Suspected Sepsis SIRS Temperature: Pulse: Respiratory Rate: Laboratory Tests 03/09/17 12:25: White Blood Count 21.3H Blood Pressure / Mean: Laboratory Tests 03/09/17 12:25: Lactic Acid Level 1.77 Laboratory Tests 03/09/17 12:25: Creatinine 1.98H, INR Comment 1.0, Platelet Count 232, Total Bilirubin 0.4 Results/Orders Lab Results Laboratory Tests Test 03/09/17 12:25 Range/Units White Blood Count 21.3 H 4.3-11.0 10^3/uL Red Blood Count 3.54 L 4.35-5.85 10^6/uL Hemoglobin 10.5 L 11.5-16.0 G/DL Hematocrit 33 L 35-52 % Mean Corpuscular Volume 94 80-99 FL Mean Corpuscular Hemoglobin 30 25-34 PG Mean Corpuscular Hemoglobin Concent 31 L 32-36 G/DL Red Cell Distribution Width 16.5 H 10.0-14.5 % Platelet Count 232 130-400 10^3/uL Mean Platelet Volume 11.2 H 7.4-10.4 FL Neutrophils (%) (Auto) 89 H 42-75 % Lymphocytes (%) (Auto) 7 L 12-44 % Monocytes (%) (Auto) 4 0-12 % Eosinophils (%) (Auto) 0 0-10 % Basophils (%) (Auto) 0 0-10 % Neutrophils # (Auto) 18.9 H 1.8-7.8 X 10^3 Lymphocytes # (Auto) 1.5 1.0-4.0 X 10^3 Monocytes # (Auto) 0.8 0.0-1.0 X 10^3 Eosinophils # (Auto) 0.0 0.0-0.3 10^3/uL Basophils # (Auto) 0.1 0.0-0.1 10^3/uL Neutrophils % (Manual) 71 % Lymphocytes % (Manual) 7 % Monocytes % (Manual) 1 % Band Neutrophils 21 % Polychromasia SLIGHT Poikilocytosis SLIGHT Basophilic Stippling SLIGHT Anisocytosis SLIGHT Microcytosis SLIGHT Macrocytosis SLIGHT Elliptocytes SLIGHT Prothrombin Time 13.4 12.2-14.7 SEC INR Comment 1.0 0.8-1.4 Activated Partial Thromboplast Time 25 24-35 SEC Sodium Level 141 135-145 MMOL/L Potassium Level 3.4 L 3.6-5.0 MMOL/L Chloride Level 94 L 98-107 MMOL/L Carbon Dioxide Level 32 21-32 MMOL/L Anion Gap 15 H 5-14 MMOL/L Blood Urea Nitrogen 96 H 7-18 MG/DL Creatinine 1.98 H 0.60-1.30 MG/DL Estimat Glomerular Filtration Rate 24 BUN/Creatinine Ratio 48 Glucose Level 258 H 70-105 MG/DL Lactic Acid Level 1.77 0.50-2.00 MMOL/L Calcium Level 9.5 8.5-10.1 MG/DL Magnesium Level 1.4 L 1.8-2.4 MG/DL Total Bilirubin 0.4 0.1-1.0 MG/DL Aspartate Amino Transf (AST/SGOT) 12 5-34 U/L Alanine Aminotransferase (ALT/SGPT) 14 0-55 U/L Alkaline Phosphatase 86 40-136 U/L Troponin I < 0.30 <0.30 NG/ML B-Type Natriuretic Peptide 192.8 H <100.0 PG/ML Total Protein 5.7 L 6.4-8.2 GM/DL Albumin 3.1 L 3.2-4.5 GM/DL Micro Results Microbiology 03/09/17 Influenza Types A,B Antigen (YAZ) - Final, Complete My Orders Orders - PRECIOUS HAGAN BNP (03/09/17 12:47) Magnesium (03/09/17 12:47) Troponin I (03/09/17 12:47) Influenza A And B Antigens (03/09/17 12:47) Albuterol/Ipra Inhalation Soln (Duoneb I (03/09/17 13:00) Cbc With Automated Diff (03/09/17 12:47) Comprehensive Metabolic Panel (03/09/17 12:47) Lactic Acid Analyzer (03/09/17 12:47) Blood Culture (03/09/17 12:47) Sputum Culture (03/09/17 12:47) Ua Culture If Indicated (03/09/17 12:47) Protime With Inr (03/09/17 12:47) Partial Thromboplastin Time (03/09/17 12:47) Chest 1 View, Ap/Pa Only (03/09/17 12:47) O2 (03/09/17 12:47) Ondansetron Injection (Zofran Injectio (03/09/17 13:00) Saline Lock/Iv-Start (03/09/17 12:47) Saline Lock/Iv-Start (03/09/17 12:47) Vital Signs Adult Sepsis Patie Q1H (03/09/17 12:47) Remove Rings In Anticipation O (03/09/17 12:47) Svn Sm Volume Nebulizer Rt-Rfs (03/09/17 12:47) Manual Differential (03/09/17 12:25) Saline Lock/Iv-Start (03/09/17 15:43) Lactated Ringers (Lr 1000 Ml Iv Solution (03/09/17 15:43) Cefepime Injection (Maxipime Injection) (03/09/17 15:45) Medications Given in ED Current Medications Medications Dose Ordered Sig/Tyson Route Start Time Stop Time Status Last Admin Dose Admin Albuterol/ Ipratropium 3 ml ONCE ONCE INH 03/09/17 13:00 03/09/17 13:01 DC 03/09/17 14:09 3 ML Cefepime HCl 2000 mg/Dextrose/Water 50 ml @ 100 mls/hr ONCE ONCE IV 03/09/17 15:45 03/09/17 16:14 DC 03/09/17 16:00 100 MLS/HR Lactated Ringer's 1,000 ml @ 0 mls/hr Q0M ONCE IV 03/09/17 15:43 03/09/17 15:47 DC 03/09/17 16:00 0 MLS/HR Vital Signs/I&O Vital Sign - Last 12Hours 03/09/17 14:09 Pulse Ox 93 O2 Delivery Nasal Cannula O2 Flow Rate 4.00 Capillary Refill : Progress Note : Time: 15:38 Progress Note Right basilar pneumonia on clinical exam as well as x-ray and lab with a white count 21,000. Lactate is 1.7. She is to sick and weak to attempt outpatient antibiotics at 77 years old. We'll initiate Rocephin and azithromycin. Diagnostic Imaging Diagonstic Imaging: Xray Plain Films/CT/US/NM/MRI: chest Comments NAME: KATELYN L[facility] REC#: [id number] PHYSICIAN: PRECIOUS HAGAN MD CC: SHANEL DOVE MD; PRECIOUS HAGAN Page 1 of 1 RADIOLOGY REPORT VIA [facility]. [place], [place] CC: SHANEL DOVE MD; PRECIOUS HAGAN Page 1 of 1 RADIOLOGY REPORT NAME: KATELYN LAND [facility] REC#: [id number] PT STATUS: REG ER : 1940 PHYSICIAN: PRECIOUS HAGAN MD ADMIT DATE: 03/09/17/ER Signed Date of Exam: 03/09/17 CHEST 1 VIEW, AP/PA ONLY INDICATION: Respiratory difficulty. TIME OF EXAM: 01:18 p.m. Correlation is made with prior study from 02/28/2017. FINDINGS: The heart is enlarged but stable. Right basilar infiltrate has largely cleared when compared with examination from nine days earlier. No new infiltrate is detected. No effusion or pneumothorax is seen. IMPRESSION: Near-complete clearing of right basilar pneumonia when compared with exam from 02/28/2017. Dictated by: Dictated on workstation # [id number] Dict: 03/09/17 1331 Trans: 03/09/17 1531 Interpreted by: SHANEL DOVE MD Electronically signed by: SHANEL DOVE MD 03/09/17 1531 Reviewed: Reviewed by Me Departure Communication (Admissions) Time/Spoke to Admitting Phy: 15:[address] Adams is aware of the patient and says she has recently been on antibiotics and just got discharged plans to possibly go hospice but since the patient is okay with being admitted she is welcome to be admitted and she'll take care of her however she recommends broad-spectrum antibiotics such as vancomycin and cefepime instead of Rocephin and azithromycin. Impression Impression: Primary Impression: Pneumonia Qualified Codes: J18.1 - Lobar pneumonia, unspecified organism Additional Impression: Sepsis Qualified Codes: A41.9 - Sepsis, unspecified organism Disposition: ADMITTED INPATIENT Condition: Stable Admissions Decision to Admit Reason: Admit from ER (General) Decision to Admit/Date: Mar 09, 2017 Time/Decision to Admit Time: 15:42 Departure-Patient Inst. Referrals: CHARMAINE CISNEROS DO (PCP/Family) Primary Care Physician Copy Copies To 1: CHARMAINE CISNEROS TITUS J Mar 09, 2017 12:52
[2017-03-09 12:55] LABS: BASOPHILS # (AUTO) 0.1 10^3/uL (0.0-0.1); BASOPHILS % (AUTO) 0 % (0-10); EOSINOPHILS % (AUTO) 0 % (0-10); HEMATOCRIT 33 % (35-52); HEMOGLOBIN 10.5 G/DL (11.5-16.0); LYMPHOCYTES # (AUTO) 1.5 X 10^3 (1.0-4.0); LYMPHOCYTES % (AUTO) 7 % (12-44); MEAN CORPUSCULAR HEMOGLOBIN 30 PG (25-34); MEAN CORPUSCULAR HGB CONC 31 G/DL (32-36); MEAN CORPUSCULAR VOLUME 94 FL (80-99); MEAN PLATELET VOLUME 11.2 FL (7.4-10.4); MONOCYTES # (AUTO) 0.8 X 10^3 (0.0-1.0); MONOCYTES % (AUTO) 4 % (0-12); NEUTROPHILS # (AUTO) 18.9 X 10^3 (1.8-7.8); NEUTROPHILS % (AUTO) 89 % (42-75); PLATELET COUNT 232 10^3/uL (130-400); RED BLOOD COUNT 3.54 10^6/uL (4.35-5.85); RED CELL DISTRIBUTION WIDTH 16.5 % (10.0-14.5); WHITE BLOOD COUNT 21.3 10^3/uL (4.3-11.0)
[2017-03-09] MEDS ORDERED: RT-ALBUTEROL/IPRATROPIUM 3 ML (DUONEB) VIAL INH ONE (13:00)
[2017-03-09 13:06] LABS: PROTHROMBIN TIME PATIENT 13.4 SEC (12.2-14.7)
[2017-03-09 13:14] LABS: ALANINE AMINOTRANSFERASE 14 U/L (0-55); ALBUMIN 3.1 GM/DL (3.2-4.5); ALKALINE PHOSPHATASE 86 U/L (40-136); BILIRUBIN,TOTAL 0.4 MG/DL (0.1-1.0); BUN/CREATININE RATIO 48; CALCIUM 9.5 MG/DL (8.5-10.1); CARBON DIOXIDE 32 MMOL/L (21-32); CHLORIDE 94 MMOL/L (98-107); CREATININE SERUM 1.98 MG/DL (0.60-1.30); GFR ESTIMATED 24; GLUCOSE 258 MG/DL (70-105); MAGNESIUM 1.4 MG/DL (1.8-2.4); POTASSIUM 3.4 MMOL/L (3.6-5.0); SODIUM 141 MMOL/L (135-145); TOTAL PROTEIN 5.7 GM/DL (6.4-8.2)
[2017-03-09 13:26] LABS: ANISOCYTOSIS SLIGHT; BAND NEUTROPHILS 21 %; LYMPHOCYTES % (MANUAL) 7 %; MICROCYTOSIS SLIGHT; MONOCYTES % (MANUAL) 1 %; NEUTROPHILS % (MANUAL) 71 %; POIKILOCYTOSIS SLIGHT; POLYCHROMASIA SLIGHT
[2017-03-09 13:27] LABS: ELLIPT/OVALOCYTES SLIGHT
--- NOTE | 2017-03-09 13:37 | Diagnostic Imaging Report ---
INDICATION: Respiratory difficulty. TIME OF EXAM: 01:18 p.m. Correlation is made with prior study from 02/28/2017. FINDINGS: The heart is enlarged but stable. Right basilar infiltrate has largely cleared when compared with examination from nine days earlier. No new infiltrate is detected. No effusion or pneumothorax is seen. IMPRESSION: Near-complete clearing of right basilar pneumonia when compared with exam from 02/28/2017. Dictated by: Dictated on workstation # [id number]
[2017-03-09] MEDS: ONDANSETRON 4 MG/2 ML (SDV) Z0FRAN IVP PRN ×2 (13:51→13:55)
[2017-03-09] MEDS ORDERED: GUAI237L82 PO (15:31)
[2017-03-09] MEDS ORDERED: INSU100V5 SQ (15:31)
[2017-03-09] MEDS ORDERED: ACET325T38 PO (15:31)
[2017-03-09] MEDS ORDERED: LACTATED RINGERS 1,000 ML IV ONE (15:43)
[2017-03-09] MEDS ORDERED: CEFEPIME INJECTION 2,000 MG in D5W 50 ML IVPB SOLUTION 50 ML IV ONE (15:45)
--- OUTSIDE RECORDS SUMMARY | 2017-03-09 17:13 | XMS REPORT | Continuity of Care Document ---
Author Author [facility] Organization [facility] Address Unknown Phone Unavailable Allergies Active Description Code Type Severity Reaction Onset Reported/Identified Relationship to Patient Clinical Status Yes Penicillins [id number] Drug Allergy Severe RASH 09/15/2016 Yes procaine [id number] Drug Allergy Severe HIVES 09/15/2016 Yes meperidine [id number] Drug Allergy Moderate SLEEP 09/15/2016 Yes No Known Drug Allergies [id number] Drug Allergy Unknown N/A 09/15/2016 Yes codeine [id number] Drug Allergy Mild N/A 01/09/2017 Yes morphine [id number] Drug Allergy Mild N/A 01/09/2017 Yes fentanyl [id number] Drug Allergy Unknown N/A 01/09/2017 Medications There is no data. Problems Date Dx Coded Attending Type Code Diagnosis Diagnosed By 06/21/2015 IZABELLA CALI MD Ot E04.1 NONTOXIC SINGLE THYROID NODULE 06/21/2015 VIRAJ LZOA, IZABELLA Barrios Ot 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, [...] Ot R53.83 OTHER FATIGUE 09/15/2016 AYAAN BROWN NEUROLOGY PHYSICIAN ASSISTANT Ot M06.9 RHEUMATOID ARTHRITIS, UNSPECIFIED 09/15/2016 AYAAN BROWN NEUROLOGY PHYSICIAN ASSISTANT Ot M25.631 STIFFNESS OF RIGHT WRIST, NOT ELSEWHERE 09/15/2016 IZABELLA CALI MD Ot E04.1 NONTOXIC SINGLE THYROID NODULE 09/15/2016 IZABELLA CALI MD Ot 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, UNSPECIFIED 09/15/2016 IZABELLA CALI MD Ot R53.83 OTHER FATIGUE 09/19/2016 AYAAN BROWN NEUROLOGY PHYSICIAN ASSISTANT Ot M06.9 RHEUMATOID ARTHRITIS, UNSPECIFIED 09/19/2016 AYAAN BROWN NEUROLOGY PHYSICIAN ASSISTANT Ot M25.631 STIFFNESS OF RIGHT WRIST, NOT [...] E11.22 TYPE 2 DIABETES MELLITUS W DIABETIC OCCUPATIONAL MEDICINE SPECIALIST 01/09/2017 VIC VILLATORO MD, Ot J44.9 CHRONIC OBSTRUCTIVE PULMONARY DISEASE, U 01/09/2017 VIC VILLATORO MD Ot L89.629 PRESSURE ULCER OF LEFT HEEL, UNSPECIFIED 01/09/2017 VIC VILLATORO MD Ot L89.899 PRESSURE ULCER OF OTHER SITE, UNSPECIFIE 01/09/2017 VIC VILLATOOR MD Ot M06.9 RHEUMATOID ARTHRITIS, UNSPECIFIED 01/09/2017 VIC VILLATORO MD Ot N18.9 CHRONIC KIDNEY DISEASE, UNSPECIFIED 01/09/2017 VIC VILLATORO MD Ot R41.0 DISORIENTATION, UNSPECIFIED 01/09/2017 VIC VILLATORO MD Ot R60.0 LOCALIZED EDEMA 01/09/2017 VIC VILLATORO MD Ot Z79.4 CONSUMER EDUCATOR (CURRENT) USE OF INSULIN 01/09/2017 VIC VILLATORO [...] E11.22 TYPE 2 DIABETES MELLITUS W DIABETIC OCCUPATIONAL MEDICINE SPECIALIST 02/28/2017 NIVIA MCGRATH MD, Ot E78.00 PURE HYPERCHOLESTEROLEMIA, UNSPECIFIED 02/28/2017 NIVIA MCGRATH MD, Ot F41.9 ANXIETY DISORDER, UNSPECIFIED 02/28/2017 NIVIA MCGRATH MD Ot G25.81 RESTLESS LEGS SYNDROME 02/28/2017 NIVIA MCGRATH MD Ot I10 ESSENTIAL (PRIMARY) HYPERTENSION 02/28/2017 NIVIA MCGRATH MD, Ot I25.10 ATHSCL HEART DISEASE OF [place] CORONARY 02/28/2017 NIVIA MCGRATH MD, Ot I48.92 [...] COMM 02/28/2017 NIVIA MCGRATH MD Ot Z79.4 CONSUMER EDUCATOR (CURRENT) USE OF INSULIN 02/28/2017 NIVIA MCGRATH MD Ot Z86.79 PERSONAL HISTORY OF OTHER DISEASES OF TH 03/01/2017 NIVIA MCGRATH MD, Ot A41.9 SEPSIS, UNSPECIFIED ORGANISM 03/01/2017 NIVIA MCGRATH MD Ot E11.22 TYPE 2 DIABETES MELLITUS W DIABETIC OCCUPATIONAL MEDICINE SPECIALIST 03/01/2017 NIVIA MCGRATH MD, Ot E78.00 PURE HYPERCHOLESTEROLEMIA, UNSPECIFIED 03/01/2017 RAMILA MD, NIVIA M Ot F41.9 ANXIETY DISORDER, UNSPECIFIED 03/01/2017 NIVIA MCGRATH MD, Ot G25.81 RESTLESS LEGS SYNDROME 03/01/2017 NIVIA MCGRATH MD, Ot I10 ESSENTIAL (PRIMARY) HYPERTENSION 03/01/2017 NIVIA MCGRATH MD, Ot I25.10 ATHSCL HEART DISEASE OF [place] CORONARY 03/01/2017 NIVIA MCGRATH MD, Ot I48.92 [...] COMM 03/01/2017 NIVIA MCGRATH MD Ot Z79.4 CONSUMER EDUCATOR (CURRENT) USE OF INSULIN 03/01/2017 NIVIA MCGRATH [...] 19:01 Bacteria identification in wound by culture [id number] NRG FREE TEXT EXTERNAL SENSITIVITY REPORTED 01/11/17 [...] measurement by glucometer (mass/volume) 366 mg/dL 70-110 Complete blood count (CBC) with automated white blood cell (WBC) differential - 03/09/17 12:25 Blood leukocytes automated count (number/volume) 21.3 10*3/uL 4.3-11.0 Blood erythrocytes automated count (number/volume) 3.54 10*6/uL 4.35-5.85 Venous blood hemoglobin measurement (mass/volume) 10.5 g/dL 11.5-16.0 Blood hematocrit (volume fraction) 33 % 35-52 Automated erythrocyte mean corpuscular volume 94 [foz_us] 80-99 Automated erythrocyte mean corpuscular hemoglobin (mass per erythrocyte) 30 pg 25-34 Automated erythrocyte mean corpuscular hemoglobin concentration measurement ( mass/volume) 31 g/dL 32-36 Automated erythrocyte distribution width ratio 16.5 % 10.0-14.5 Automated blood platelet count (count/volume) 232 10*3/uL 130-400 Automated blood platelet mean volume measurement 11.2 [foz_us] 7.4-10.4 Automated blood neutrophils/100 leukocytes 89 % 42-75 Automated blood lymphocytes/100 leukocytes 7 % 12-44 Blood monocytes/100 leukocytes 4 % 0-12 Automated blood eosinophils/100 leukocytes 0 % 0-10 Automated blood basophils/100 leukocytes 0 % 0-10 Blood neutrophils automated count (number/volume) 18.9 10*3 1.8-7.8 Blood lymphocytes automated count (number/volume) 1.5 10*3 1.0-4.0 Blood monocytes automated count (number/volume) 0.8 10*3 0.0-1.0 Automated eosinophil count 0.0 10*3/uL 0.0-0.3 Automated blood basophil count (count/volume) 0.1 10*3/uL 0.0-0.1 Blood lactic acid measurement (moles/volume) - 03/09/17 12:25 Blood lactic acid measurement (moles/volume) 1.77 mmol/L 0.50-2.00 PT panel in platelet poor plasma by coagulation assay - 03/09/17 12:25 Prothrombin time (PT) in platelet poor plasma by coagulation assay 13.4 s 12.2-14.7 INR in platelet poor plasma or blood by coagulation assay 1.0 0.8-1.4 Activated partial thromboplastin time (aPTT) in platelet poor plasma bycoagulation assay - 03/09/17 12:25 Activated partial thromboplastin time (aPTT) in platelet poor plasma bycoagulation assay 25 s 24-35 Comprehensive metabolic panel - 03/09/17 12:25 Serum or plasma sodium measurement (moles/volume) 141 mmol/L 135-145 Serum or plasma potassium measurement (moles/volume) 3.4 mmol/L 3.6-5.0 Serum or plasma chloride measurement (moles/volume) 94 mmol/L 98-107 Carbon dioxide 32 mmol/L 21-32 Serum or plasma anion gap determination (moles/volume) 15 mmol/L 5-14 Serum or plasma urea nitrogen measurement (mass/volume) 96 mg/dL 7-18 Serum or plasma creatinine measurement (mass/volume) 1.98 mg/dL 0.60-1.30 Serum or plasma urea nitrogen/creatinine mass ratio 48 NRG Serum or plasma creatinine measurement with calculation of estimated glomerular filtration rate 24 NRG Serum or plasma glucose measurement (mass/volume) 258 mg/dL 70-105 Serum or plasma calcium measurement (mass/volume) 9.5 mg/dL 8.5-10.1 Serum or plasma total bilirubin measurement (mass/volume) 0.4 mg/dL 0.1-1.0 Serum or plasma alkaline phosphatase measurement (enzymatic activity/volume) 86 U/L 40-136 Serum or plasma aspartate aminotransferase measurement (enzymatic activity/ volume) 12 U/L 5-34 Serum or plasma alanine aminotransferase measurement (enzymatic activity/volume ) 14 U/L 0-55 Serum or plasma protein measurement (mass/volume) 5.7 g/dL 6.4-8.2 Serum or plasma albumin measurement (mass/volume) 3.1 g/dL 3.2-4.5 Magnesium - 03/09/17 12:25 Magnesium 1.4 mg/dL 1.8-2.4 Serum or plasma troponin i.cardiac measurement (mass/volume) - 03/09/17 12:25 Serum or plasma troponin i.cardiac measurement (mass/volume) < ng/ mL <0.30 Serum or plasma lithium measurement (moles/volume) - 03/09/17 12:25 BNP level 192.8 pg/mL <100.0 Blood manual differential performed detection - 03/09/17 12:25 Blood monocytes/100 leukocytes 1 % NRG Manual blood segmented neutrophils/100 leukocytes 71 % NRG Blood band neutrophils/100 leukocytes 21 % NRG Manual blood lymphocytes/100 leukocytes 7 % NRG Blood polychromasia detection by light microscopy SLIGHT NRG Blood anisocytosis detection by light microscopy SLIGHT NRG Blood macrocytes detection by light microscopy SLIGHT NRG Blood ovalocytes detection by light microscopy SLIGHT NRG Blood poikilocytosis detection by light microscopy SLIGHT NRG Blood microcytes detection by light microscopy SLIGHT NRG Blood basophilic stippling detection by light microscopy SLIGHT NRG Influenza virus A and B antigen detection - 03/09/17 14:06 FLU RESULT NEGATIVE FOR INFLUENZA A AND B ANTIGENS BY IA NRG Encounters ACCT No. Visit Date/Time Discharge Status Pt. Type Provider Facility Loc./Unit Complaint [id number] 02/27/2017 16:41:00 03/01/2017 17:20:00 DIS Inpatient RAMILA LOZA, NIVIA Ackerman [facility] 4TH SEPSIS,RLL PNEUMONIA, INFLUENZA EXPOSURE,CICD,DM, [id number] 01/09/2017 16:02:00 01/09/2017 19:29:00 DIS Emergency SHAUNA LOZA, VIC Barron [facility] ER KIDNEY FAILURE [id number] 01/08/2017 11:27:00 01/08/2017 23:59:59 CLS Outpatient LACY LOZA, ANTONIA [facility] LAB N18.4,R60.0 [id number] 09/15/2016 11:04:00 09/15/2016 12:12:00 DIS Emergency AYAAN BROWN APRN [facility] ER ARTHRITIS [id number] 06/18/2015 12:05:00 06/18/2015 23:59:59 CLS Outpatient VIRAJ LOZA, IZABELLA Barrios [facility] RAD RIGHT THYROID NODULE, HAIR LOSS [id number] 03/09/2017 15:50:00 ACT Inpatient RAMILA LOZA, NIVIA Ackerman [facility] 4TH PNEUMONIA,SEPSIS
[2017-03-09 17:15] VITALS: BP 139/74
[2017-03-09] MEDS ORDERED: VANCOMYCIN 1 GM/NS 250 ML IVPB IV NR ×2 (17:30)
[2017-03-09] MEDS: 1/2 NS W/KCL 20 MEQ/L 1,000 ML IV SCH ×2 (18:01→23:23)
[2017-03-09 19:43] VITALS: BP 139/74
[2017-03-09 19:54] VITALS: BP 122/58
[2017-03-09] MEDS ORDERED: RT-ALBUTEROL SULF 2.5 MG/3 ML PRE-MIX VIAL INH PRN (20:15)
[2017-03-09] MEDS: MAGNESIUM OXIDE (MAG-OX)400 MG TAB PO SCH (21:11)
[2017-03-09] MEDS: inSUlin (REGULAR) HUMAN 1 UNIT/0.01 ML (CHARGE PER UNIT) SC SCH (21:11)
[2017-03-09] MEDS ORDERED: NON-FORMULARY MEDICATION 1 EA EA (Pramipexole Di-HCl (Mirapex) 1 MG) PO SCH (22:00)
[2017-03-09] MEDS ORDERED: NON-FORMULARY MEDICATION 1 EA EA (Pramipexole Di-HCl (Mirapex) 0.25 MG) PO SCH (22:00)
[2017-03-09] MEDS ORDERED: PRAMIPEXOLE 0.5 MG TAB (MIRAPEX) PO SCH (22:45)
[2017-03-09] MEDS: RT-ALBUTEROL/IPRATROPIUM 3 ML (DUONEB) VIAL INH SCH (23:07)
[2017-03-09] MEDS: PRAMIPEXOLE 0.125 MG (MIRAPEX) TABLET PO SCH (23:12)
[2017-03-09] MEDS: PRAMIPEXOLE 0.5 MG TAB (MIRAPEX) PO SCH (23:13)
[2017-03-10] VITALS: BP 124/64
[2017-03-10] MEDS: RT-ALBUTEROL/IPRATROPIUM 3 ML (DUONEB) VIAL INH SCH ×7 (01:43→21:59)
[2017-03-10] MEDS: 1/2 NS W/KCL 20 MEQ/L 1,000 ML IV SCH ×2 (02:51→08:41)
[2017-03-10 04:08] LABS: BASOPHILS % (AUTO) 0 % (0-10); EOSINOPHILS % (AUTO) 0 % (0-10); HEMATOCRIT 28 % (35-52); HEMOGLOBIN 8.9 G/DL (11.5-16.0); LYMPHOCYTES # (AUTO) 1.5 X 10^3 (1.0-4.0); LYMPHOCYTES % (AUTO) 12 % (12-44); MEAN CORPUSCULAR HEMOGLOBIN 30 PG (25-34); MEAN CORPUSCULAR HGB CONC 32 G/DL (32-36); MEAN CORPUSCULAR VOLUME 94 FL (80-99); MEAN PLATELET VOLUME 10.7 FL (7.4-10.4); MONOCYTES # (AUTO) 0.7 X 10^3 (0.0-1.0); MONOCYTES % (AUTO) 5 % (0-12); NEUTROPHILS # (AUTO) 10.7 X 10^3 (1.8-7.8); NEUTROPHILS % (AUTO) 83 % (42-75); PLATELET COUNT 188 10^3/uL (130-400); RED BLOOD COUNT 2.97 10^6/uL (4.35-5.85); RED CELL DISTRIBUTION WIDTH 16.1 % (10.0-14.5); WHITE BLOOD COUNT 12.9 10^3/uL (4.3-11.0)
[2017-03-10 04:45] VITALS: BP 126/59
[2017-03-10 05:05] LABS: CALCIUM 8.7 MG/DL (8.5-10.1); CREATININE SERUM 1.65 MG/DL (0.60-1.30); MAGNESIUM 1.2 MG/DL (1.8-2.4); POTASSIUM 3.5 MMOL/L (3.6-5.0)
[2017-03-10] MEDS: inSUlin (REGULAR) HUMAN 1 UNIT/0.01 ML (CHARGE PER UNIT) SC SCH ×4 (05:17→20:23)
[2017-03-10 08:00] VITALS: BP 147/67
[2017-03-10] MEDS: MAGNESIUM OXIDE (MAG-OX)400 MG TAB PO SCH (08:41)
[2017-03-10] MEDS: metroNIDAZOLE 500 MG (FLAGYL) TAB PO SCH ×2 (11:24→20:22)
[2017-03-10 12:00] VITALS: BP 117/57
--- NOTE | 2017-03-10 12:57 | History & Physical-Hospitalist ---
HPI History of Present Illness: HPI/Chief Complaint Pt is a 77yoCF who is known to be from recent admission with a PMH of a flutter , recurrent pneumonia, CKD, and IDDMII who presented to the ER with CC of body aches, SOB, edema, and nasal congestion. She was found to have right basilar pneumonia and was admitted for IV abx. She denies all of these symptoms to me today. She reports her only complaint is her diarrhea. Diarrhea was noted on admission but she is unsure when it started. She complains of mild abd pain but is able to eat. She denies any blood in her stool. She otherwise has not complaints though this history of limited by dementia. Source: patient Date Seen 03/10/17 Time Seen by Provider: 12:45 Attending Physician Nivia Adams MD PCP Rex Christian DO Referring Physician Date of Admission Mar 09, 2017 at 3:50 pm Home Medications & Allergies Home Medications Reviewed patient Home Medication Reconciliation Form Allergies Allergies Coded Allergies Penicillins (Verified Allergy, Severe, RASH, 09/15/16) procaine (Verified Allergy, Severe, HIVES, 09/15/16) codeine (Verified Allergy, Mild, 01/09/17) morphine (Verified Allergy, Mild, 01/09/17) fentanyl (Verified Allergy, Unknown, 01/09/17) meperidine (Verified Adverse Reaction, Intermediate, SLEEP, 09/15/16) Past [id number]-Bicazi Hx Patient Social History Alcohol Use: Denies Use Recreational Drug Use: No Smoking Status: Former Smoker Type Used: Cigarettes 2nd Hand Smoke Exposure: No Physical Abuse Screen: No Sexual Abuse: No Recent Foreign Travel: No Contact w/other who traveled: No Recent Hopitalizations: No Recent Infectious Disease Expo: No Immunizations Up To Date Tetanus Booster (TDap): Unknown Date of Pneumonia Vaccine: Dec 28, 2016 Date of Influenza Vaccine: Dec 12, 2016 Seasonal Allergies Seasonal Allergies: No Surgeries Yes (NERVE FUSION) Appendectomy, Gallbladder, Hysterectomy, Tubal Ligation Respiratory Yes Currently Using CPAP: No Currently Using BIPAP: No Cardiovascular Yes (atrial flutter (per [facility] records), heart failure, arteritis) Chronic Edema/Swelling, Coronary Artery Disease, High Cholesterol, Hypertension Neurological Yes (Restless leg syndrome, generalized muscle weakness) Reproductive System Sexually Transmitted Disease: No HIV/AIDS: No Genitourinary Yes Renal Failure Gastrointestinal Yes Gastroesophageal Reflux Musculoskeletal Yes Rheumatoid Arthritis, Gout Endocrine History of Endocrine Disorders: Yes Endocrine Disorders: Diabetes, Insulin dep Are Your Blood Sugars Over 250: Yes HEENT History of HEENT Disorders: No HEENT Disorders: Cataract Loss of Vision: Denies Hearing Impairment: Denies Cancer No Psychosocial History of Psychiatric Problem: Yes Behavioral Health Disorders: Anxiety Integumentary History of Skin or Integumenta: No Blood Transfusions History of Blood Disorders: Yes (anemia) Family Medical History Significant Family History: No Pertinent Family Hx Family Hx: Patient reports no known family medical history. Review of Systems Constitutional: No chills, No fever, weakness EENTM: No blurred vision, No double vision, No nose congestion Respiratory: No cough, No phlegm, No short of breath Cardiovascular: No chest pain, No palpitations Gastrointestinal: abdominal pain, No constipation, diarrhea, No nausea, No vomiting Genitourinary: no symptoms reported Musculoskeletal: no symptoms reported Skin: no symptoms reported Psychiatric/Neurological: No Symptoms Reported Physical Exam Physical Exam Vital Signs Vital Sign - Last 12Hours 03/09/17 03/09/17 14:09 17:15 Temp 97.1 Pulse 87 Resp 16 B/P (MAP) 139/74 (95) Pulse Ox 93 O2 Delivery Nasal Cannula O2 Flow Rate 4.00 Capillary Refill : General Appearance: No Apparent Distress, WD/WN Neck: Non Tender, Supple Respiratory: Lungs Clear, Normal Breath Sounds Cardiovascular: Regular Rate, Rhythm, No JVD, No Murmur Gastrointestinal: Normal Bowel Sounds, Non Tender, Soft Neurologic/Psychiatric: Alert, Oriented x3 Results Results/Procedures Lab Laboratory Tests 03/09/17 12:25 03/10/17 03:47 Assessment/Plan Admission Diagnosis C diff Diagnosis/Problems Diagnosis/Problems (1) C. difficile diarrhea Status: Acute Assessment & Plan: Started on flagyl Monitor I/Os On precautions On mag ox will DC (2) Atrial flutter Assessment & Plan: Recent diagnosis within the last year or so During last admission she adamantly declined any treatment for it including anticoagulation Will monitor Qualifiers: Qualified Codes: I48.92 - Unspecified atrial flutter (3) Dementia Status: Chronic Assessment & Plan: No known diagnosis of dementia Will get cognitive eval Likely needs jail care as gets very confused about her care Qualifiers: Qualified Codes: F03.90 - Unspecified dementia without behavioral disturbance (4) Sepsis Status: Acute Assessment & Plan: due to c diff tachycardia and leukocytosis Lactic acid normal on abx as above Continue to monitor Qualifiers: Qualified Codes: A41.9 - Sepsis, unspecified organism (5) Chronic renal failure Status: Acute Assessment & Plan: Acute on chronic Assistant Professor Of Biochemistry improving continue IVF Clinical Quality Measures DVT/VTE Risk/Contraindication: Risk Factor Score Per Nursin RFS Level Per Nursing on Admit: 4+=Very High NIVIA ADAMS MD Mar 10, 2017 12:57 pm
[2017-03-10] MEDS: NS IV 1000 ML 1,000 ML IV SCH ×2 (14:09→21:27)
[2017-03-10] MEDS ORDERED: CEFEPIME 2 GM/D5W 50 ML IVPB IV SCH ×2 (16:00)
[2017-03-10 16:02] VITALS: BP 153/66
[2017-03-10] MEDS ORDERED: VANCOMYCIN 1 GM/NS 250 ML IVPB IV SCH ×2 (18:00)
[2017-03-10 19:41] VITALS: BP 154/67
[2017-03-10] MEDS: MELATONIN 3 MG TABLET PO PRN (20:22)
[2017-03-10] MEDS: ATORVASTATIN 10 MG (LIPITOR) TABLET PO SCH (20:22)
[2017-03-10] MEDS: QUEtiapine 25 MG (SEROquel) TAB IMMEDIATE RELEASE PO SCH (20:22)
[2017-03-10] MEDS: PRAMIPEXOLE 0.5 MG TAB (MIRAPEX) PO SCH (20:22)
[2017-03-10] MEDS: ALPRAZolam 0.5 MG (XANAX) TAB PO PRN (20:22)
[2017-03-10] MEDS: PRAMIPEXOLE 0.125 MG (MIRAPEX) TABLET PO SCH (20:22)
[2017-03-10] MEDS ORDERED: PRAMIPEXOLE 0.125 MG (MIRAPEX) TABLET PO SCH (21:00)
[2017-03-10] MEDS ORDERED: PRAMIPEXOLE 0.5 MG TAB (MIRAPEX) PO SCH (21:00)
[2017-03-11 00:20] VITALS: BP 129/70
[2017-03-11] MEDS: RT-ALBUTEROL/IPRATROPIUM 3 ML (DUONEB) VIAL INH SCH ×7 (02:50→23:06)
[2017-03-11 04:00] VITALS: BP 139/75
[2017-03-11] MEDS: inSUlin (REGULAR) HUMAN 1 UNIT/0.01 ML (CHARGE PER UNIT) SC SCH ×4 (06:02→18:33)
[2017-03-11 07:01] LABS: BASOPHILS # (AUTO) 0.1 10^3/uL (0.0-0.1); BASOPHILS % (AUTO) 1 % (0-10); EOSINOPHILS # (AUTO) 0.4 10^3/uL (0.0-0.3); EOSINOPHILS % (AUTO) 3 % (0-10); HEMATOCRIT 33 % (35-52); HEMOGLOBIN 10.3 G/DL (11.5-16.0); LYMPHOCYTES # (AUTO) 1.6 X 10^3 (1.0-4.0); LYMPHOCYTES % (AUTO) 11 % (12-44); MEAN CORPUSCULAR HEMOGLOBIN 30 PG (25-34); MEAN CORPUSCULAR HGB CONC 32 G/DL (32-36); MEAN CORPUSCULAR VOLUME 95 FL (80-99); MEAN PLATELET VOLUME 11.3 FL (7.4-10.4); MONOCYTES # (AUTO) 0.9 X 10^3 (0.0-1.0); MONOCYTES % (AUTO) 6 % (0-12); NEUTROPHILS # (AUTO) 11.5 X 10^3 (1.8-7.8); NEUTROPHILS % (AUTO) 80 % (42-75); PLATELET COUNT 161 10^3/uL (130-400); RED BLOOD COUNT 3.44 10^6/uL (4.35-5.85); RED CELL DISTRIBUTION WIDTH 16.5 % (10.0-14.5); WHITE BLOOD COUNT 14.4 10^3/uL (4.3-11.0)
[2017-03-11 07:21] LABS: CALCIUM 8.9 MG/DL (8.5-10.1); CREATININE SERUM 1.47 MG/DL (0.60-1.30); MAGNESIUM 1.2 MG/DL (1.8-2.4); POTASSIUM 3.3 MMOL/L (3.6-5.0)
[2017-03-11 08:00] VITALS: BP 149/65
[2017-03-11] MEDS: ALLOPURINOL 100 MG (ZYLOPRIM) TAB PO SCH (08:38)
[2017-03-11] MEDS: metroNIDAZOLE 500 MG (FLAGYL) TAB PO SCH ×3 (08:38→20:43)
[2017-03-11] MEDS: PROPRANOLOL 20 MG (INDERAL) TABLET PO SCH (08:39)
[2017-03-11] MEDS: predniSONE 20 MG TAB PO SCH (08:39)
--- NOTE | 2017-03-11 11:35 | Progress Note-Hospitalist ---
Subjective HPI/CC On Admission Date Seen by Provider: Mar 11, 2017 Time Seen by Provider: 11:34 Pt is a 77yoCF who is known to be from recent admission with a PMH of a flutter , recurrent pneumonia, CKD, and IDDMII who presented to the ER with CC of body aches, SOB, edema, and nasal congestion. She was found to have right basilar pneumonia and was admitted for IV abx. She denies all of these symptoms to me today. She reports her only complaint is her diarrhea. Diarrhea was noted on admission but she is unsure when it started. She complains of mild abd pain but is able to eat. She denies any blood in her stool. She otherwise has not complaints though this history of limited by dementia. Subjective/Events-last exam Per RN complaining of pain. Had large loose BM. Per Pt: denies any pain. Reports feeling well other than agitated with attempts at obtaining IV access. Ultimately refuses further attempts. Objective Exam Vital Signs Vital Sign - Last 12Hours 03/09/17 03/09/17 14:09 17:15 Temp 97.1 Pulse 87 Resp 16 B/P (MAP) 139/74 (95) Pulse Ox 93 O2 Delivery Nasal Cannula O2 Flow Rate 4.00 Capillary Refill : General Appearance: No Apparent Distress, WD/WN Respiratory: Lungs Clear, No Respiratory Distress Cardiovascular: Regular Rate, Rhythm, No Murmur Gastrointestinal: Normal Bowel Sounds, Non Tender, Soft Results/Procedures Lab Laboratory Tests 03/11/17 06:47 Assessment/Plan Assessment and Plan Assess & Plan/Chief Complaint c diff Diagnosis/Problems Diagnosis/Problems (1) C. difficile diarrhea Status: Acute Assessment & Plan: Continue flagyl Monitor I/Os On precautions No abd pain, continue to monitor (2) Atrial flutter Assessment & Plan: Recent diagnosis within the last year or so During last admission she adamantly declined any treatment for it including anticoagulation Will monitor Qualifiers: Qualified Codes: I48.92 - Unspecified atrial flutter (3) Dementia Status: Chronic Assessment & Plan: No known diagnosis of dementia Will get cognitive eval Likely needs [facility] care as gets very confused about her care Qualifiers: Qualified Codes: F03.90 - Unspecified dementia without behavioral disturbance (4) Sepsis Status: Acute Assessment & Plan: due to c diff tachycardia and leukocytosis- improving Lactic acid normal on abx as above Continue to monitor Qualifiers: Qualified Codes: A41.9 - Sepsis, unspecified organism (5) Chronic renal failure Status: Acute Assessment & Plan: Acute on chronic User Experience Analyst improving (6) Hypomagnesemia Status: Acute Assessment & Plan: Mag 1.2 Had to DC oral supplement given profuse diarrhea Refusing IV access for parental replacement Refusing any further "pokes" including IM administration of Magnesium Will attempt access tomorrow with IV team (7) Hypokalemia Assessment & Plan: will replace NIVIA MCGRATH MD Mar 11, 2017 11:35 am
[2017-03-11] MEDS ORDERED: KCL 20 MEQ TAB (K-DUR) PO NR (11:45)
[2017-03-11 12:00] VITALS: BP 100/54
[2017-03-11] MEDS: MAGNESIUM 1 GM/100 ML IVPB 100 ML IV SCH (13:38)
[2017-03-11 16:17] VITALS: BP 117/60
[2017-03-11] MEDS ORDERED: TROUGH ORDER-PHARMACY XX NR (17:00)
[2017-03-11] MEDS ORDERED: inSUlin ASPART (NovoLOG) 1 UNIT/0.01 ML (CHARGE PER UNIT) SC ONE (20:15)
[2017-03-11] MEDS: ATORVASTATIN 10 MG (LIPITOR) TABLET PO SCH (20:43)
[2017-03-11] MEDS: ACETAMINOPHEN 500 MG TAB (TYLENOL) PO PRN (20:43)
[2017-03-11] MEDS: QUEtiapine 25 MG (SEROquel) TAB IMMEDIATE RELEASE PO SCH (20:43)
[2017-03-11] MEDS: ALPRAZolam 0.5 MG (XANAX) TAB PO PRN (20:43)
[2017-03-11] MEDS: PRAMIPEXOLE 0.5 MG TAB (MIRAPEX) PO SCH (20:43)
[2017-03-11] MEDS: PRAMIPEXOLE 0.125 MG (MIRAPEX) TABLET PO SCH (20:44)
[2017-03-11] MEDS: inSUlin ASPART (NovoLOG) 1 UNIT/0.01 ML (CHARGE PER UNIT) SC SCH (22:05)
[2017-03-12 00:25] VITALS: BP 115/59
[2017-03-12] MEDS: RT-ALBUTEROL/IPRATROPIUM 3 ML (DUONEB) VIAL INH SCH ×5 (02:00→21:31)
[2017-03-12] MEDS: inSUlin ASPART (NovoLOG) 1 UNIT/0.01 ML (CHARGE PER UNIT) SC SCH ×4 (06:24→21:10)
[2017-03-12 06:50] LABS: BASOPHILS # (AUTO) 0.1 10^3/uL (0.0-0.1); BASOPHILS % (AUTO) 1 % (0-10); EOSINOPHILS # (AUTO) 0.1 10^3/uL (0.0-0.3); EOSINOPHILS % (AUTO) 1 % (0-10); HEMATOCRIT 28 % (35-52); HEMOGLOBIN 8.9 G/DL (11.5-16.0); LYMPHOCYTES % (AUTO) 11 % (12-44); MEAN CORPUSCULAR HEMOGLOBIN 30 PG (25-34); MEAN CORPUSCULAR HGB CONC 32 G/DL (32-36); MEAN CORPUSCULAR VOLUME 93 FL (80-99); MONOCYTES % (AUTO) 11 % (0-12); NEUTROPHILS % (AUTO) 77 % (42-75); PLATELET COUNT 159 10^3/uL (130-400); RED BLOOD COUNT 3.02 10^6/uL (4.35-5.85); RED CELL DISTRIBUTION WIDTH 15.7 % (10.0-14.5); WHITE BLOOD COUNT 9.2 10^3/uL (4.3-11.0)
[2017-03-12 07:14] LABS: CALCIUM 8.7 MG/DL (8.5-10.1); CREATININE SERUM 1.57 MG/DL (0.60-1.30); MAGNESIUM 1.3 MG/DL (1.8-2.4); POTASSIUM 2.8 MMOL/L (3.6-5.0)
[2017-03-12 08:00] VITALS: BP 114/63
[2017-03-12] MEDS: metroNIDAZOLE 500 MG (FLAGYL) TAB PO SCH ×3 (08:54→21:09)
[2017-03-12] MEDS: ALLOPURINOL 100 MG (ZYLOPRIM) TAB PO SCH (08:54)
[2017-03-12] MEDS: predniSONE 20 MG TAB PO SCH (08:54)
[2017-03-12] MEDS: PROPRANOLOL 20 MG (INDERAL) TABLET PO SCH (08:54)
--- NOTE | 2017-03-12 11:52 | Physician Query Clarification ---
PQ-Conflicting Diagnosis Admission/Discharge Admission Date: Mar 09, 2017 at 15:50 Discharge Date: The medical record reflects the following clinical scenario: History/Risk Factors: History recurrent pneumonia Productive cough Clinical Findings: Ache in chest per patient. Rales on left per ED. Chest x-ray of 03/09-Impression: Near-complete clearing of right basilar pneumonia when compared with exam from 02/28/17. Treatment: IV Rocephin, IV Vancomycin Question: Do you agree with the impression of Pneumonia per Dr. Cruz, ED physician? Please document a response below. PHYSICIAN RESPONSE Do you agree w/Consulting Dx?: No Explanation of clincal finding Chest XR reveals near clearance of pneumonia and no clinical finding under my exam. In responding to this query, please exercise your independent professional judgment. The purpose of this communication is to more accurately reflect the complexity of your patients condition. The fact that a question is asked does not imply that any particular answer is desired or expected. Thank you for your timely response to this clarification. Requestors name: Alma Bustillo [facility], [facility] Phone # [phone] or [phone] THIS PHYSICIAN QUERY FORM IS A PERMANENT PART OF THE MEDICAL RECORD ALMA BUSTILLO Mar 12, 2017 11:52 NIVIA MCGRATH MD Mar 12, 2017 16:56
--- NOTE | 2017-03-12 11:59 | Physician Query Clarification ---
PQ-CHF Specificity The medical record reflects the following clinical scenario: History/Risk Factors: Hx of Congestive Heart Failure per Dr. Cruz's ED report. Worsening swelling in her bilater lower extremities on admission. Clinical Findings: 03/09 BNP 192.8 Treatment: 80mg Lasix PO BID which she says that she has been taking. Question: Can you further specify the acuity &/or type of CHF per the clinical indicators above? Please document a response below PHYSICIAN RESPONSE Acuity: Chronic Type: Clinically undetermined Other, clinical findings No Echo on file. In responding to this query, please exercise your independent professional judgment. The purpose of this communication is to more accurately reflect the complexity of your patients condition. The fact that a question is asked does not imply that any particular answer is desired or expected. Thank you for your timely response to this clarification. Requestors name: Alma Bustillo [facility] Phone # [phone] or [phone] THIS PHYSICIAN QUERY FORM IS A PERMANENT PART OF THE MEDICAL RECORD ALMA BUSTILLO Mar 12, 2017 11:59 NIVIA MCGRATH MD Mar 12, 2017 16:58
[2017-03-12] MEDS ORDERED: KCL 20 MEQ TAB (K-DUR) PO NR (12:00)
--- NOTE | 2017-03-12 12:32 | ST Cognitive Linguistic Eval ---
Speech Evaluation-General Medical Diagnosis Pneumonia Onset Date: Mar 10, 2017 Therapy Diagnosis Therapy Diagnosis: Mild to Moderate Cognitive Impairment Precautions Precautions/Isolations: Fall Prevention, Contact/Enteric Isolation Referral Referring Physician: Dr. Kayleigh Adams Reason for Referral: Evaluation/Treatment Cognitive Evaluation Medical History Pertinent Medical History: CAD, COPD, DM, GERD, HTN, Rheumatoid Arthritis Current History The patient was recently admitted with right upper lobe pneumonia. The patient previously resided in a skilled unit, however, recently returned home (where she lives alone). Reviewed History: Yes Social History Current Living Status: Alone Speech PLF-Current Status Prior Level of Function The patient was unable (or unwilling) to provide prior level of function information to the clinician. The patient appeared extremely guarded and suspicious of the rationale for the cognitive evaluation. Subjective The patient was laying in bed upon entrance. The patient was hesitant towards participation in the cognitive evaluation, however, agreed following much encouragement from the clinician. The patient appeared intermittently agitated, scoffing at the clinician's questions and stating, "nope, I just can't." Language Eval: Auditory Comprehends Simple Yes/No Ques: Functional Indent/Objects Multiple Disla: Functional Ident/Pics in Multiple Disla: Functional Follows 1-Step Commands: Functional Follows Complex Directions: Mild Follows General Conversations: Mild (The patient is tangential and requires frequent redirection to task.) Language Eval: Verbal Language Completes Spontaneous Greeting: Functional Produces Auto, Serial Info: Mild (The patient was unable to state her street address to the clinician.) Imitates Simple Words/Phrases: Functional Word Finding: Moderate (The patient was able to state six 's' words in one minute (WNL=15)) Requests Basic Needs: Functional States Basic Personal Info: Functional Expresses Complex Ideas: Mild Cognitive Patient Orientation The patient was not oriented to date, day of week, or city (the patient stated she was in [place], [place]). Objective Cognitive Domain Attention: Moderate (The patient was unable to state three digits in reverse, complete serial seven subtraction, or identify a specific letter in a string of letters.) Memory: Moderate (The patient was able to recall four of five items immediately and one of five items following a five minute interval.) Problem Solving: Mild The patient refused to complete clock drawing, trail-making, or cube copying. Per patient, "I'm too tired, it's too early, my hands will shake." Objective Formal/Standardized Tests The patient demonstrated a score of +14/25 on the standardized MoCA (Version Two ) cognitive screening tool. The patient demonstrated deficits in memory, attention, word-finding, and orientation. Impression The patient displays a mild to moderate cognitive impairment, most notably in the areas of memory and attention. In addition, the patient stated information throughout the evaluation which was inaccurate ("Aren't you going to get me a blanket like you said you were last time you were in?" "Yeah, I remember from November."). The clinician was not previously in the patient's room discussing a warm blanket and a cognitive evaluation or time with speech pathology was not completed in November. At this time, the speech pathologist is concerned with the patient's safety and ability to complete ADL's in a home setting alone. Following discharge, it may be most appropriate to seek assisted living or additional skilled services. Speech-Plan Treatment Plan Speech Therapy Treatment Plan: Discontinue ST Evaluation, only. Frequency: 1 time per week Estimated Hrs Per Day: Other Rehab Potential: Fair Safety Risks/Education Teaching Recipient: Patient Teaching Methods: Discussion Response to Teaching: Reinforcement Needed Education Topics Provided: Results, Recommendations Discharge Recommendations Assisted Living, Assisted (TCU/NH) Time Speech Therapy Time In: 09:15 Speech Therapy Time Out: 09:45 Total Billed Time: 30 Billed Treatment Time 1, ALONDRA SUTHERLAND Mar 12, 2017 12:32
--- NOTE | 2017-03-12 12:56 | Progress Note-Hospitalist ---
Subjective HPI/CC On Admission Date Seen by Provider: Mar 12, 2017 Time Seen by Provider: 12:30 Pt is a 77yoCF who is known to be from recent admission with a PMH of a flutter , recurrent pneumonia, CKD, and IDDMII who presented to the ER with CC of body aches, SOB, edema, and nasal congestion. She was found to have right basilar pneumonia and was admitted for IV abx. She denies all of these symptoms to me today. She reports her only complaint is her diarrhea. Diarrhea was noted on admission but she is unsure when it started. She complains of mild abd pain but is able to eat. She denies any blood in her stool. She otherwise has not complaints though this history of limited by dementia. Objective Exam Vital Signs Vital Sign - Last 12Hours 03/09/17 03/09/17 03/12/17 14:09 17:15 08:25 Temp 97.1 Pulse 87 Resp 16 B/P (MAP) 139/74 (95) Pulse Ox 93 O2 Delivery Nasal Cannula O2 Flow Rate 4.00 FiO2 32 Capillary Refill : General Appearance: No Apparent Distress, WD/WN Respiratory: Lungs Clear, No Accessory Muscle Use, No Respiratory Distress Cardiovascular: Regular Rate, Rhythm, No Murmur Gastrointestinal: Non Tender, Soft Neurologic/Psychiatric: Alert, Other (oriented to self and place only) Results/Procedures Lab Laboratory Tests 03/12/17 06:23 Assessment/Plan Assessment and Plan Assess & Plan/Chief Complaint c diff Diagnosis/Problems Diagnosis/Problems (1) C. difficile diarrhea Status: Acute Assessment & Plan: Continue flagyl Monitor I/Os On precautions No abd pain, continue to monitor (2) Atrial flutter Assessment & Plan: Recent diagnosis within the last year or so During last admission she adamantly declined any treatment for it including anticoagulation Will monitor Qualifiers: Qualified Codes: I48.92 - Unspecified atrial flutter (3) Dementia Status: Chronic Assessment & Plan: No known diagnosis of dementia MOCA- mild/moderate dementia with very poor recall Likely needs care home care as gets very confused about her care She okayed for me to talk with daughter about care, will call today Qualifiers: Qualified Codes: F03.90 - Unspecified dementia without behavioral disturbance (4) Sepsis Status: Acute Assessment & Plan: due to c diff tachycardia and leukocytosis- improving Lactic acid normal on abx as above Continue to monitor Qualifiers: Qualified Codes: A41.9 - Sepsis, unspecified organism (5) Chronic renal failure Status: Acute Assessment & Plan: Acute on chronic Assessment Manager near baseline (6) Hypomagnesemia Status: Acute Assessment & Plan: Mag 1.2 Had to DC oral supplement given profuse diarrhea Refusing IV access for parental replacement Will attempt IV access team for peripheral Refusing any further "pokes" including IM administration of Magnesium (7) Hypokalemia Assessment & Plan: will replace orally NIVIA MCGRATH MD Mar 12, 2017 12:55
[2017-03-12 16:16] VITALS: BP 119/65
[2017-03-12] MEDS: ACETAMINOPHEN 500 MG TAB (TYLENOL) PO PRN (17:29)
[2017-03-12] MEDS: ATORVASTATIN 10 MG (LIPITOR) TABLET PO SCH (21:09)
[2017-03-12] MEDS: MELATONIN 3 MG TABLET PO PRN (21:09)
[2017-03-12] MEDS: PRAMIPEXOLE 0.125 MG (MIRAPEX) TABLET PO SCH (21:09)
[2017-03-12] MEDS: QUEtiapine 25 MG (SEROquel) TAB IMMEDIATE RELEASE PO SCH (21:09)
[2017-03-12] MEDS: PRAMIPEXOLE 0.5 MG TAB (MIRAPEX) PO SCH (21:09)
[2017-03-12] MEDS: ALPRAZolam 0.5 MG (XANAX) TAB PO PRN (21:09)
[2017-03-12] MEDS: MAGNESIUM 1 GM/100 ML IVPB 100 ML IV SCH ×2 (21:10→22:10)
[2017-03-13] VITALS: BP 98/62
[2017-03-13] MEDS: RT-ALBUTEROL/IPRATROPIUM 3 ML (DUONEB) VIAL INH SCH ×2 (01:29→10:04)
[2017-03-13 04:00] VITALS: BP 148/76
[2017-03-13] MEDS: inSUlin ASPART (NovoLOG) 1 UNIT/0.01 ML (CHARGE PER UNIT) SC SCH ×2 (06:23→12:50)
[2017-03-13 08:00] VITALS: BP 153/65
[2017-03-13] MEDS: predniSONE 20 MG TAB PO SCH (09:57)
[2017-03-13] MEDS: metroNIDAZOLE 500 MG (FLAGYL) TAB PO SCH ×2 (09:57→13:19)
[2017-03-13] MEDS: PROPRANOLOL 20 MG (INDERAL) TABLET PO SCH (09:57)
[2017-03-13] MEDS: ALLOPURINOL 100 MG (ZYLOPRIM) TAB PO SCH (09:58)
[2017-03-13] MEDS ORDERED: METR500T21 PO (10:39)
--- NOTE | 2017-03-13 10:42 | Discharge Inst-Skilled Nursing ---
Discharge Inst-Skilled NF Consult/Follow Up/Orders Follow Up Appt.: 1-[address] Christian. Skilled NF Admit to: [facility] Certification (SNF) I certify that SNF services are required to be given on an inpatient basis because of the above named patient's need for shelter care on a continuing basis for the conditions(s) for which he/she was receiving inpatient hospital services prior to his/her transfer to the SNF. Longterm Facility Order: Nursing Services, [facility]-Evaluate & Treat, Physical Therapy-Evaluate & Treat Discharge Diet: Low Sodium Diet Daily Activity as Tolerated: Yes New & Resume Previous Orders Nivia Adams Mar 13, 2017 10:41 NIVIA ADAMS MD Mar 13, 2017 10:42
--- NOTE | 2017-03-13 13:11 | Discharge Summary-Hospitalist ---
Diagnosis/Chief Complaint Date of Admission Mar 09, 2017 at 3:50 pm Date of Discharge Discharge Date: Mar 13, 2017 Admission Diagnosis C diff Discharge Diagnosis c diff (1) C. difficile diarrhea Status: Acute Assessment & Plan: Continue flagyl Monitor I/Os BMs frequency decreasing Maintaining hydration with oral intake (2) Atrial flutter Assessment & Plan: Recent diagnosis within the last year or so During last admission she adamantly declined any treatment for it including anticoagulation Will monitor (3) Dementia Status: Chronic Assessment & Plan: No known diagnosis of dementia MOCA- mild/moderate dementia with very poor recall Likely needs retirement care as gets very confused about her care Unable to contact daughter but was able to speak to her son Red who is DPOA about my concerns regarding her mentation He agreed that 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 likely in assisted living, when I informed patient of this and her diagnosis she became very defensive stating she has been "imprisoned here for 83 days" (4) Sepsis Status: Resolved Assessment & Plan: due to c diff tachycardia and leukocytosis- improving Lactic acid normal on abx as above Continue to monitor (5) Chronic renal failure Status: Acute Assessment & Plan: 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 (6) Hypomagnesemia Status: Acute Assessment & Plan: Replaced, will resume oral supplement at DC now that BMs improved (7) Hypokalemia Assessment & Plan: Replaced Discharge Summary Discharge Physical Examination Allergies: Coded Allergies: Penicillins (Verified Allergy, Severe, RASH, 09/15/16) procaine (Verified Allergy, Severe, HIVES, 09/15/16) codeine (Verified Allergy, Mild, 01/09/17) morphine (Verified Allergy, Mild, 01/09/17) fentanyl (Verified Allergy, Unknown, 01/09/17) meperidine (Verified Adverse Reaction, Intermediate, SLEEP, 09/15/16) Vitals & I&Os Vital Signs Date Time Temp Pulse Resp B/P (MAP) Pulse Ox O2 Delivery O2 Flow Rate FiO2 03/13/17 10:04 95 Room Air 03/13/17 08:00 3.50 03/13/17 08:00 96.4 89 18 153/65 (94) 03/12/17 08:25 32 Hospital Course Pt is a 77yoCF who was admitted for sepsis due to c diff. She was started on Flagyl and responded well. She underwent cognitive evaluation and was found to have mild to moderate dementia with poor recall. I informed both her and her son of this and my concerns about her safety should she discharge from the NH after her skilled stay. Son agreed that she would be best served in retirement care but patient became very defensive. Advised son to discuss situation with social work at [facility] to discuss her care and activating her DPOA. I have called Dr. Christian to discuss my concerns and left a message with his nurse. Labs (last 24 hrs) Laboratory Tests 03/12/17 16:24: Glucometer 374H 03/12/17 20:54: Glucometer 333H 03/13/17 06:06: Glucometer 230H 03/13/17 11:58: Glucometer 293H Microbiology 03/09/17 Blood Culture - Preliminary, Resulted No growth 03/09/17 C. difficile GDH Antigen & Toxins - Final, Complete 03/09/17 Influenza Types A,B Antigen (YAZ) - Final, Complete Pending Labs Laboratory Tests 03/13/17 06:06: Glucometer 230 03/13/17 11:58: Glucometer 293 Discharge Home Medications: Active Scripts Active Metronidazole 500 Mg Tablet 500 Mg PO TID Reported Levemir (Insulin Determir) 1,000 Units/10 Ml Soln 10 Units SQ DAILY Robitussin Cough-Chest Dm Liq (Guaifenesin/Dextromethorphan) 237 Ml Liquid 5 Ml PO Q4H PRN Tylenol (Acetaminophen) 325 Mg Tablet 325-650 Mg PO Q6H PRN A and D Ointment (Vits A and D/White Pet/Lanolin) 42.5 Gm Oint...g. TP DAILY APPLY TO LEGS FOR DRY SKIN Boudreauxs (Zinc Oxide) 28 Gm Oint TP TID CLEANSE INDRA CLEFT WITH SOAP AND WATER, PAT DRY, AND APPLY THREE TIMES PER DAY Ventolin Hfa (Albuterol Sulfate) 1 Puff Puff 2 Puff IH QID PRN 1 PUFF = 90 MCG Nicorette (Nicotine Polacrilex) 4 Mg Lozenge 4 Mg BC Q6H PRN Melatonin 10 Mg Capsule 10 Mg PO HS PRN Protonix (Pantoprazole Sodium) 40 Mg Tablet.dr 40 Mg PO DAILY Colace (Docusate Sodium) 100 Mg Capsule 100 Mg PO HS PRN Furosemide 80 Mg Tablet 80 Mg PO BID Atorvastatin Calcium 10 Mg Tablet 10 Mg PO HS Metolazone 2.5 Mg Tablet 2.5 Mg PO DAILY Mirapex (Pramipexole Di-HCl) 0.25 Mg Tablet 0.25 Mg PO HS Mirapex (Pramipexole Di-HCl) 1 Mg Tablet 1 Mg PO HS Allopurinol 100 Mg Tablet 100 Mg PO DAILY Propranolol HCl 10 Mg Tablet 10 Mg PO DAILY Prednisone 20 Mg Tab 30 Mg PO DAILY Potassium Chloride 20 Meq Tab.er.prt 20 Meq PO BID Novolog Flexpen (Insulin Aspart) 300 Units/3 Ml Solution SC ACHS 151-200 = 2 UNITS 201-250 = 4 UNITS 251-300 = 6 UNITS 301-350 = 8 UNITS 351-400 =10 UNITS >400 = CALL PHYSICIAN Seroquel (Quetiapine Fumarate) 25 Mg Tablet 25 Mg PO HS Vitamin D (Cholecalciferol (Vitamin D3)) 1,000 Unit Capsule 1,000 Units PO DAILY Xanax (Alprazolam) 0.5 Mg Tablet 0.5 Mg PO TID PRN Instructions to patient/family Please see electronic discharge instructions given to patient. Clinical Quality Measures DVT/VTE Risk/Contraindication: Risk Factor Score Per Nursin RFS Level Per Nursing on Admit: 4+=Very High Copy Copies To 1: CHARMAINE CHRISTIAN DO Problem Qualifiers (1) Atrial flutter: Atrial flutter type: unspecified Qualified Codes: I48.92 - Unspecified atrial flutter (2) Dementia: Dementia type: unspecified type Dementia behavioral disturbance: without behavioral disturbance Qualified Codes: F03.90 - Unspecified dementia without behavioral disturbance (3) Sepsis: Sepsis type: sepsis due to unspecified organism Qualified Codes: A41.9 - Sepsis, unspecified organism NIVIA MCGRATH MD Mar 13, 2017 1:10 pm
[2017-03-13 14:25] VITALS: BP 153/65
== END 2017-03-13 14:30 | DRG 872 ==
LOC: EDUNIT# 11:54 → ER 11:57 → 4TH 15:50
PROVIDERS: ADMIT Family Medicine; ATTEND Family Medicine
DX: A41.9 Sepsis, unspecified organism (principal); A04.72 Enterocolitis due to Clostridium difficile, not specified as recurrent; I48.92 Unspecified atrial flutter; N17.9 Acute kidney failure, unspecified; I13.0 Hypertensive heart and chronic kidney disease with heart failure and stage 1 through stage 4 chronic kidney disease, or unspecified chronic kidney disease; I50.9 Heart failure, unspecified; N18.9 Chronic kidney disease, unspecified; Z66 Do not resuscitate; J44.9 Chronic obstructive pulmonary disease, unspecified; I25.10 Atherosclerotic heart disease of native coronary artery without angina pectoris; E78.00 Pure hypercholesterolemia, unspecified; E11.9 Type 2 diabetes mellitus without complications; F03.90 Unspecified dementia, unspecified severity, without behavioral disturbance, psychotic disturbance, mood disturbance, and anxiety; K21.9 Gastro-esophageal reflux disease without esophagitis; G25.81 Restless legs syndrome; M06.9 Rheumatoid arthritis, unspecified; M10.9 Gout, unspecified; F41.9 Anxiety disorder, unspecified; D64.9 Anemia, unspecified; E83.42 Hypomagnesemia; E87.6 Hypokalemia; M62.81 Muscle weakness (generalized); Z87.01 Personal history of pneumonia (recurrent); Z79.4 Long term (current) use of insulin; Z87.891 Personal history of nicotine dependence; Z86.79 Personal history of other diseases of the circulatory system; Z88.0 Allergy status to penicillin; Z88.5 Allergy status to narcotic agent
CPT/HCPCS: 36415; 71045; 80048; 80053; 82962; 83605; 83735; 83880; 84484; 85007; 85025; 85027; 85610; 85730; 87040; 87324; 87449; 87804; 94640; 94664; 94760; 96374

== ENCOUNTER 2017-03-19 12:39 | Emergency (ER) | payer MEDICARE, MEDICAID ==
[~2017-03-19] VITALS: Ht 160 cm; Wt 71.7 kg
[~2017-03-19 12:39] MED LIST changes: +ACET325T38 PO; +GUAI237L82 PO; +METR500T21 PO
--- OUTSIDE RECORDS SUMMARY | 2017-03-19 12:47 | XMS REPORT | Continuity of Care Document ---
Author Author [facility] Organization [facility] Address Unknown Phone Unavailable Allergies Active Description Code Type Severity Reaction Onset Reported/Identified Relationship to Patient Clinical Status Yes Penicillins [id number] Drug Allergy Severe RASH 09/15/2016 Yes procaine [id number] Drug Allergy Severe HIVES 09/15/2016 Yes meperidine [id number] Drug Allergy Moderate SLEEP 09/15/2016 Yes No Known Drug Allergies [id number] Drug Allergy Unknown N/A 09/15/2016 Yes codeine [id number] Drug Allergy Mild N/A 01/09/2017 Yes morphine [id number] Drug Allergy Mild N/A 01/09/2017 Yes fentanyl [id number] Drug Allergy Unknown N/A 01/09/2017 Medications There [...] Ot 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, UNSPECIFIED 07/20/2015 IZBAELLA CALI MD Ot R53.83 OTHER FATIGUE 09/15/2016 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[employer] Ot M06.9 RHEUMATOID ARTHRITIS, UNSPECIFIED 09/15/2016 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 Ot M25.631 STIFFNESS OF RIGHT WRIST, NOT ELSEWHERE 09/15/2016 IZABELLA CALI MD Ot E04.1 NONTOXIC SINGLE THYROID NODULE 09/15/2016 IZABELLA CALI MD Ot 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, UNSPECIFIED 09/15/2016 IZABELLA CALI MD Ot R53.83 OTHER FATIGUE 09/19/2016 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 Ot M06.9 RHEUMATOID ARTHRITIS, UNSPECIFIED 09/19/2016 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 Ot M25.631 STIFFNESS OF RIGHT WRIST, NOT [...] 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 DIRECTOR 01/09/2017 VIC VILLATORO MD, Ot J44.9 CHRONIC [...] EDEMA 01/09/2017 VIC VILLATORO MD Ot 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 01/09/2017 VIC VILLATORO [...] IZABELLA Barrios Ot R53.83 OTHER FATIGUE 02/27/2017 ANTONAI HOUSE MD Ot I77.6 ARTERITIS, UNSPECIFIED 02/27/2017 [...] 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 DIRECTOR 02/28/2017 NIVIA MCGRATH MD, Ot E78.00 PURE HYPERCHOLESTEROLEMIA, UNSPECIFIED 02/28/2017 NIVIA MCGRATH MD, Ot F41.9 ANXIETY DISORDER, UNSPECIFIED 02/28/2017 NIVIA MCGRATH MD Ot G25.81 RESTLESS LEGS SYNDROME 02/28/2017 NIVIA MCGRATH MD Ot I10 ESSENTIAL (PRIMARY) HYPERTENSION 02/28/2017 NIVIA MCGRATH MD, Ot I25.10 ATHSCL HEART DISEASE OF [place] CORONARY 02/28/2017 NIVIA MCGRATH MD, Ot I48.92 [...] COMM 02/28/2017 NIVIA MCGRATH MD Ot 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 02/28/2017 NIVIA MCGRATH MD Ot Z86.79 PERSONAL HISTORY OF OTHER DISEASES OF TH 03/01/2017 NIVIA MCGRATH MD, Ot A41.9 SEPSIS, UNSPECIFIED ORGANISM 03/01/2017 NIVIA MCGRATH MD Ot 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 DIRECTOR 03/01/2017 NIVIA MCGRATH MD, Ot E78.00 PURE HYPERCHOLESTEROLEMIA, UNSPECIFIED 03/01/2017 RAMILA MD, NIVIA M Ot F41.9 ANXIETY DISORDER, UNSPECIFIED 03/01/2017 NIVIA MCGRATH MD, Ot G25.81 RESTLESS LEGS SYNDROME 03/01/2017 NIVIA MCGRATH MD, Ot I10 ESSENTIAL (PRIMARY) HYPERTENSION 03/01/2017 NIVIA MCGRATH MD, Ot I25.10 ATHSCL HEART DISEASE OF [place] CORONARY 03/01/2017 NIVIA MCGRATH MD, Ot I48.92 [...] COMM 03/01/2017 NIVIA MCGRATH MD Ot 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 03/01/2017 NIVIA MCGRATH MD, Ot Z86.79 PERSONAL HISTORY OF OTHER DISEASES OF TH 03/01/2017 NIVIA MCGRATH MD, Ot Z87.891 PERSONAL HISTORY OF NICOTINE DEPENDENCE 03/12/2017 NIVIA MCGRATH MD, Ot A04.72 ENTEROCOLITIS D/T CLOSTRIDIUM DIFFICILE, 03/12/2017 NIVIA MCGRATH MD, Ot A41.9 SEPSIS, UNSPECIFIED ORGANISM 03/12/2017 NIVIA MCGRATH MD, Ot D64.9 ANEMIA, UNSPECIFIED 03/12/2017 NIVIA MCGRATH MD, Ot E11.9 TYPE 2 DIABETES MELLITUS WITHOUT COMPLIC 03/12/2017 RAMILA MD, NIVIA M Ot E78.00 PURE HYPERCHOLESTEROLEMIA, UNSPECIFIED 03/12/2017 NIVIA MCGRATH MD, Ot E83.42 HYPOMAGNESEMIA 03/12/2017 NIVIA MCGRATH MD, Ot E87.6 HYPOKALEMIA 03/12/2017 NIVIA MCGRATH MD, Ot F03.90 UNSPECIFIED DEMENTIA WITHOUT BEHAVIORAL 03/12/2017 NIVIA MCGRATH MD, Ot F41.9 ANXIETY DISORDER, UNSPECIFIED 03/12/2017 NIVIA MCGRATH MD, Ot G25.81 RESTLESS LEGS SYNDROME 03/12/2017 NIVIA MCGRATH MD, Ot I13.0 HYP HRT CHR KDNY DIS W HRT FAIL AND ST 03/12/2017 NIVIA MCGRATH MD, Ot I25.10 ATHSCL HEART DISEASE OF [place] CORONARY 03/12/2017 NIVIA MCGRATH MD, Ot I48.92 UNSPECIFIED ATRIAL FLUTTER 03/12/2017 NIVIA MCGRATH MD, Ot I50.9 HEART FAILURE, UNSPECIFIED 03/12/2017 NIVIA MCGRATH MD, Ot J44.9 CHRONIC OBSTRUCTIVE PULMONARY DISEASE, U 03/12/2017 NIVIA MCGRATH MD, Ot K21.9 GASTRO-ESOPHAGEAL REFLUX DISEASE WITHOUT 03/12/2017 NIVIA MCGRATH MD, Ot M06.9 RHEUMATOID ARTHRITIS, UNSPECIFIED 03/12/2017 NIVIA MCGRATH MD, Ot M10.9 GOUT, UNSPECIFIED 03/12/2017 NIVIA MCGRATH MD, Ot M62.81 MUSCLE WEAKNESS (GENERALIZED) 03/12/2017 NIVIA MCGRATH MD, Ot N17.9 ACUTE KIDNEY FAILURE, UNSPECIFIED 03/12/2017 NIVIA MCGRATH MD, Ot N18.9 CHRONIC KIDNEY DISEASE, UNSPECIFIED 03/12/2017 NIVIA MCGRATH MD, Ot Z66 DO NOT RESUSCITATE 03/12/2017 NIVIA MCGRATH MD, Ot Z79.4 [facility] (CURRENT) USE OF INSULIN 03/12/2017 NIVIA MCGRATH MD, Ot Z86.79 PERSONAL HISTORY OF OTHER DISEASES OF TH 03/12/2017 NIVIA MCGRATH MD, Ot Z87.01 PERSONAL HISTORY OF PNEUMONIA (RECURRENT 03/12/2017 NIVIA MCGRATH MD, Ot Z87.891 PERSONAL HISTORY OF NICOTINE DEPENDENCE 03/13/2017 NIVIA MCGRATH MD, Ot A04.72 ENTEROCOLITIS D/T CLOSTRIDIUM DIFFICILE, 03/13/2017 NIVIA MCGRATH MD, Ot A41.9 SEPSIS, UNSPECIFIED ORGANISM 03/13/2017 NIVIA MCGRATH MD, Ot D64.9 ANEMIA, UNSPECIFIED 03/13/2017 NIVIA MCGRATH MD, Ot E11.9 TYPE 2 DIABETES MELLITUS WITHOUT COMPLIC 03/13/2017 NIVIA MCGRATH MD, Ot E78.00 PURE HYPERCHOLESTEROLEMIA, UNSPECIFIED 03/13/2017 NIVIA MCGRATH MD, Ot E83.42 HYPOMAGNESEMIA 03/13/2017 NIVIA MCGRATH MD, Ot E87.6 HYPOKALEMIA 03/13/2017 NIVIA MCGRATH MD, Ot F03.90 UNSPECIFIED DEMENTIA WITHOUT BEHAVIORAL 03/13/2017 NIVIA MCGRATH MD, Ot F41.9 ANXIETY DISORDER, UNSPECIFIED 03/13/2017 NIVIA MCGRATH MD, Ot G25.81 RESTLESS LEGS SYNDROME 03/13/2017 NIVIA MCGRATH MD, Ot I13.0 HYP HRT CHR KDNY DIS W HRT FAIL AND ST 03/13/2017 NIVIA MCGRATH MD, Ot I25.10 ATHSCL HEART DISEASE OF [place] CORONARY 03/13/2017 NIVIA MCGRATH MD, Ot I48.92 UNSPECIFIED ATRIAL FLUTTER 03/13/2017 NIVIA MCGRATH MD, Ot I50.9 HEART FAILURE, UNSPECIFIED 03/13/2017 NIVIA MCGRATH MD, Ot J44.9 CHRONIC OBSTRUCTIVE PULMONARY DISEASE, U 03/13/2017 NIVIA MCGRATH MD, Ot K21.9 GASTRO-ESOPHAGEAL REFLUX DISEASE WITHOUT 03/13/2017 NIVIA MCGRATH MD, Ot M06.9 RHEUMATOID ARTHRITIS, UNSPECIFIED 03/13/2017 NIVIA MCGRATH MD, Ot M10.9 GOUT, UNSPECIFIED 03/13/2017 NIVIA MCGRATH MD, Ot M62.81 MUSCLE WEAKNESS (GENERALIZED) 03/13/2017 NIVIA MCGRATH MD, Ot N17.9 ACUTE KIDNEY FAILURE, UNSPECIFIED 03/13/2017 NIVIA MCGRATH MD, Ot N18.9 CHRONIC KIDNEY DISEASE, UNSPECIFIED 03/13/2017 NIVIA MCGRATH MD Ot Z66 DO NOT RESUSCITATE 03/13/2017 NIVIA MCGRATH MD Ot Z79.4 [facility] (CURRENT) USE OF INSULIN 03/13/2017 NIVIA MCGRATH MD, Ot Z86.79 PERSONAL HISTORY OF OTHER DISEASES OF TH 03/13/2017 NIVIA MCGRATH MD, Ot Z87.01 PERSONAL HISTORY OF PNEUMONIA (RECURRENT 03/13/2017 NIVIA MCGRATH MD, Ot Z87.891 PERSONAL HISTORY OF NICOTINE DEPENDENCE 03/13/2017 NIVIA MCGRATH MD Ot Z88.0 ALLERGY STATUS TO PENICILLIN 03/13/2017 NIVIA MCGRATH MD, Ot Z88.5 ALLERGY STATUS TO NARCOTIC AGENT STATUS Procedures There is no data. Results Test [...] 19:01 Bacteria identification in wound by culture [id number] NR FREE TEXT EXTERNAL SENSITIVITY REPORTED 01/11/17 10:50 NRG QUANTITY OF GROWTH Abundant Growth NRG MRSA AGAR MRSA isolated (Screening test for MRSA is positive) NR CALL POSITIVES (F1 HELP) CALLED TO [facility], ER 01/11/17 12:15 BY S.T. NR Bacterial susceptibility panel - 01/09/17 19:01 Oxacillin [...] susceptibility test by minimum inhibitory concentration R NR Influenza virus A and B antigen detection - 02/27/17 12:10 FLU RESULT NEGATIVE FOR INFLUENZA A AND B ANTIGENS BY IA [facility] Complete blood count (CBC) with automated white [...] stippling detection by light microscopy SLIGHT NRG Bacterial blood culture - 03/09/17 12:25 Bacterial blood culture NG NRG Bacterial blood culture - 03/09/17 13:34 Bacterial blood culture NG NRG Influenza virus A and B antigen detection - 03/09/17 14:06 FLU RESULT NEGATIVE FOR INFLUENZA A AND B ANTIGENS BY IA NRG Capillary blood glucose measurement by glucometer (mass/volume) - 03/09/17 20: 56 Capillary blood glucose measurement by glucometer (mass/volume) 295 mg/dL 70-110 C DIFFICILE AG + TOXIN A/B. - 03/09/17 21:35 CALL POSITIVES (F1 HELP) CALLED TO [facility] 03/10 08:30 NRG SPECIAL CONTACT SPECIAL CONTACT PRECAUTIONS NEEDED NRG RESULTS POSITIVE FOR ANTIGEN AND TOXIN A/B NRG Complete blood count (CBC) with automated white blood cell (WBC) differential - 03/10/17 03:47 Blood leukocytes automated count (number/volume) 12.9 10*3/uL 4.3-11.0 Blood erythrocytes automated count (number/volume) 2.97 10*6/uL 4.35-5.85 Venous blood hemoglobin measurement (mass/volume) 8.9 g/dL 11.5-16.0 Blood hematocrit (volume fraction) 28 % 35-52 Automated erythrocyte mean corpuscular volume 94 [foz_us] 80-99 Automated erythrocyte mean corpuscular hemoglobin (mass per erythrocyte) 30 pg 25-34 Automated erythrocyte mean corpuscular hemoglobin concentration measurement ( mass/volume) 32 g/dL 32-36 Automated erythrocyte distribution width ratio 16.1 % 10.0-14.5 Automated blood platelet count (count/volume) 188 10*3/uL 130-400 Automated blood platelet mean volume measurement 10.7 [foz_us] 7.4-10.4 Automated blood neutrophils/100 leukocytes 83 % 42-75 Automated blood lymphocytes/100 leukocytes 12 % 12-44 Blood monocytes/100 leukocytes 5 % 0-12 Automated blood eosinophils/100 leukocytes 0 % 0-10 Automated blood basophils/100 leukocytes 0 % 0-10 Blood neutrophils automated count (number/volume) 10.7 10*3 1.8-7.8 Blood lymphocytes automated count (number/volume) 1.5 10*3 1.0-4.0 Blood monocytes automated count (number/volume) 0.7 10*3 0.0-1.0 Automated eosinophil count 0.0 10*3/uL 0.0-0.3 Automated blood basophil count (count/volume) 0.0 10*3/uL 0.0-0.1 Whole blood basic metabolic panel - 03/10/17 03:47 Serum or plasma sodium measurement (moles/volume) 139 mmol/L 135-145 Serum or plasma potassium measurement (moles/volume) 3.5 mmol/L 3.6-5.0 Serum or plasma chloride measurement (moles/volume) 97 mmol/L 98-107 Carbon dioxide 27 mmol/L 21-32 Serum or plasma anion gap determination (moles/volume) 15 mmol/L 5-14 Serum or plasma urea nitrogen measurement (mass/volume) 88 mg/dL 7-18 Serum or plasma creatinine measurement (mass/volume) 1.65 mg/dL 0.60-1.30 Serum or plasma urea nitrogen/creatinine mass ratio 53 NRG Serum or plasma creatinine measurement with calculation of estimated glomerular filtration rate 30 NRG Serum or plasma glucose measurement (mass/volume) 178 mg/dL 70-105 Serum or plasma calcium measurement (mass/volume) 8.7 mg/dL 8.5-10.1 Magnesium - 03/10/17 03:47 Magnesium 1.2 mg/dL 1.8-2.4 Capillary blood glucose measurement by glucometer (mass/volume) - 03/10/17 05: 14 Capillary blood glucose measurement by glucometer (mass/volume) 186 mg/dL 70-110 Capillary blood glucose measurement by glucometer (mass/volume) - 03/10/17 12: 03 Capillary blood glucose measurement by glucometer (mass/volume) 299 mg/dL 70-110 Capillary blood glucose measurement by glucometer (mass/volume) - 03/10/17 16: 05 Capillary blood glucose measurement by glucometer (mass/volume) 338 mg/dL 70-110 Capillary blood glucose measurement by glucometer (mass/volume) - 03/10/17 20: 07 Capillary blood glucose measurement by glucometer (mass/volume) 246 mg/dL 70-110 Capillary blood glucose measurement by glucometer (mass/volume) - 03/11/17 05: 05 Capillary blood glucose measurement by glucometer (mass/volume) 155 mg/dL 70-110 Complete blood count (CBC) with automated white blood cell (WBC) differential - 03/11/17 06:47 Blood leukocytes automated count (number/volume) 14.4 10*3/uL 4.3-11.0 Blood erythrocytes automated count (number/volume) 3.44 10*6/uL 4.35-5.85 Venous blood hemoglobin measurement (mass/volume) 10.3 g/dL 11.5-16.0 Blood hematocrit (volume fraction) 33 % 35-52 Automated erythrocyte mean corpuscular volume 95 [foz_us] 80-99 Automated erythrocyte mean corpuscular hemoglobin (mass per erythrocyte) 30 pg 25-34 Automated erythrocyte mean corpuscular hemoglobin concentration measurement ( mass/volume) 32 g/dL 32-36 Automated erythrocyte distribution width ratio 16.5 % 10.0-14.5 Automated blood platelet count (count/volume) 161 10*3/uL 130-400 Automated blood platelet mean volume measurement 11.3 [foz_us] 7.4-10.4 Automated blood neutrophils/100 leukocytes 80 % 42-75 Automated blood lymphocytes/100 leukocytes 11 % 12-44 Blood monocytes/100 leukocytes 6 % 0-12 Automated blood eosinophils/100 leukocytes 3 % 0-10 Automated blood basophils/100 leukocytes 1 % 0-10 Blood neutrophils automated count (number/volume) 11.5 10*3 1.8-7.8 Blood lymphocytes automated count (number/volume) 1.6 10*3 1.0-4.0 Blood monocytes automated count (number/volume) 0.9 10*3 0.0-1.0 Automated eosinophil count 0.4 10*3/uL 0.0-0.3 Automated blood basophil count (count/volume) 0.1 10*3/uL 0.0-0.1 Whole blood basic metabolic panel - 03/11/17 06:47 Serum or plasma sodium measurement (moles/volume) 141 mmol/L 135-145 Serum or plasma potassium measurement (moles/volume) 3.3 mmol/L 3.6-5.0 Serum or plasma chloride measurement (moles/volume) 100 mmol/L 98-107 Carbon dioxide 25 mmol/L 21-32 Serum or plasma anion gap determination (moles/volume) 16 mmol/L 5-14 Serum or plasma urea nitrogen measurement (mass/volume) 67 mg/dL 7-18 Serum or plasma creatinine measurement (mass/volume) 1.47 mg/dL 0.60-1.30 Serum or plasma urea nitrogen/creatinine mass ratio 46 NRG Serum or plasma creatinine measurement with calculation of estimated glomerular filtration rate 34 NRG Serum or plasma glucose measurement (mass/volume) 193 mg/dL 70-105 Serum or plasma calcium measurement (mass/volume) 8.9 mg/dL 8.5-10.1 Magnesium - 03/11/17 06:47 Magnesium 1.2 mg/dL 1.8-2.4 Capillary blood glucose measurement by glucometer (mass/volume) - 03/11/17 11: 26 Capillary blood glucose measurement by glucometer (mass/volume) 301 mg/dL 70-110 Capillary blood glucose measurement by glucometer (mass/volume) - 03/11/17 16: 21 Capillary blood glucose measurement by glucometer (mass/volume) 509 mg/dL 70-110 Capillary blood glucose measurement by glucometer (mass/volume) - 03/11/17 18: 19 Capillary blood glucose measurement by glucometer (mass/volume) 519 mg/dL 70-110 Capillary blood glucose measurement by glucometer (mass/volume) - 03/11/17 19: 48 Capillary blood glucose measurement by glucometer (mass/volume) 442 mg/dL 70-110 Capillary blood glucose measurement by glucometer (mass/volume) - 03/12/17 00: 06 Capillary blood glucose measurement by glucometer (mass/volume) 251 mg/dL 70-110 Capillary blood glucose measurement by glucometer (mass/volume) - 03/12/17 05: 38 Capillary blood glucose measurement by glucometer (mass/volume) 169 mg/dL 70-110 Complete blood count (CBC) with automated white blood cell (WBC) differential - 03/12/17 06:23 Blood leukocytes automated count (number/volume) 9.2 10*3/uL 4.3-11.0 Blood erythrocytes automated count (number/volume) 3.02 10*6/uL 4.35-5.85 Venous blood hemoglobin measurement (mass/volume) 8.9 g/dL 11.5-16.0 Blood hematocrit (volume fraction) 28 % 35-52 Automated erythrocyte mean corpuscular volume 93 [foz_us] 80-99 Automated erythrocyte mean corpuscular hemoglobin (mass per erythrocyte) 30 pg 25-34 Automated erythrocyte mean corpuscular hemoglobin concentration measurement ( mass/volume) 32 g/dL 32-36 Automated erythrocyte distribution width ratio 15.7 % 10.0-14.5 Automated blood platelet count (count/volume) 159 10*3/uL 130-400 Automated blood platelet mean volume measurement 11.0 [foz_us] 7.4-10.4 Automated blood neutrophils/100 leukocytes 77 % 42-75 Automated blood lymphocytes/100 leukocytes 11 % 12-44 Blood monocytes/100 leukocytes 11 % 0-12 Automated blood eosinophils/100 leukocytes 1 % 0-10 Automated blood basophils/100 leukocytes 1 % 0-10 Blood neutrophils automated count (number/volume) 7.0 10*3 1.8-7.8 Blood lymphocytes automated count (number/volume) 1.0 10*3 1.0-4.0 Blood monocytes automated count (number/volume) 1.0 10*3 0.0-1.0 Automated eosinophil count 0.1 10*3/uL 0.0-0.3 Automated blood basophil count (count/volume) 0.1 10*3/uL 0.0-0.1 Whole blood basic metabolic panel - 03/12/17 06:23 Serum or plasma sodium measurement (moles/volume) 138 mmol/L 135-145 Serum or plasma potassium measurement (moles/volume) 2.8 mmol/L 3.6-5.0 Serum or plasma chloride measurement (moles/volume) 102 mmol/L 98-107 Carbon dioxide 25 mmol/L 21-32 Serum or plasma anion gap determination (moles/volume) 11 mmol/L 5-14 Serum or plasma urea nitrogen measurement (mass/volume) 67 mg/dL 7-18 Serum or plasma creatinine measurement (mass/volume) 1.57 mg/dL 0.60-1.30 Serum or plasma urea nitrogen/creatinine mass ratio 43 NRG Serum or plasma creatinine measurement with calculation of estimated glomerular filtration rate 32 NRG Serum or plasma glucose measurement (mass/volume) 154 mg/dL 70-105 Serum or plasma calcium measurement (mass/volume) 8.7 mg/dL 8.5-10.1 Magnesium - 03/12/17 06:23 Magnesium 1.3 mg/dL 1.8-2.4 Capillary blood glucose measurement by glucometer (mass/volume) - 03/12/17 11: 10 Capillary blood glucose measurement by glucometer (mass/volume) 311 mg/dL 70-110 Capillary blood glucose measurement by glucometer (mass/volume) - 03/12/17 16: 24 Capillary blood glucose measurement by glucometer (mass/volume) 374 mg/dL 70-110 Capillary blood glucose measurement by glucometer (mass/volume) - 03/12/17 20: 54 Capillary blood glucose measurement by glucometer (mass/volume) 333 mg/dL 70-110 Capillary blood glucose measurement by glucometer (mass/volume) - 03/13/17 06: 06 Capillary blood glucose measurement by glucometer (mass/volume) 230 mg/dL 70-110 Capillary blood glucose measurement by glucometer (mass/volume) - 03/13/17 11: 58 Capillary blood glucose measurement by glucometer (mass/volume) 293 mg/dL 70-110 Encounters ACCT No. Visit Date/Time Discharge Status Pt. Type Provider Facility Loc./Unit Complaint [id number] 03/09/2017 15:50:00 03/13/2017 14:30:00 DIS Outpatient RAMILA LOZA, NIVIA Ackerman [facility] 4TH PNEUMONIA,SEPSIS [id number] 02/27/2017 16:41:00 03/01/2017 17:20:00 DIS Inpatient RAMILA LOZA, NIVIA Ackerman [facility] 4TH SEPSIS,RLL PNEUMONIA, INFLUENZA EXPOSURE,CICD,DM, [id number] 01/09/2017 16:02:00 01/09/2017 19:29:00 DIS Emergency SHAUNA LOZA, VIC Barron [facility] ER KIDNEY FAILURE [id number] 01/08/2017 11:27:00 01/08/2017 23:59:59 CLS Outpatient LACY LOZA, ANTONIA [facility] LAB N18.4,R60.0 [id number] 09/15/2016 11:04:00 09/15/2016 12:12:00 DIS Emergency AYAAN BROWN APRN [facility] ER ARTHRITIS [id number] 06/18/2015 12:05:00 06/18/2015 23:59:59 CLS Outpatient VIRAJ LOZA, IZABELLA Barrios [facility] RAD RIGHT THYROID NODULE, HAIR LOSS
--- NOTE | 2017-03-19 13:45 | ED Lower Extremity ---
General Chief Complaint: Lower Extremity Stated Complaint: POOR BLOOD FLOW IN LEGS Nursing Triage Note: PATIENT STATES THAT SHE HAS BEEN HAVING SWELLING IN HER LEGS SINCE JANUARY BUT WAS "FORCED" BY A NURSE AT [facility] TO COME TO THE ER TODAY. SHE STATES THAT HER LEGS ARE SORE AND IT IS PAINFUL TO WALK. Nursing Sepsis Screen: No Definite Risk Source: patient Exam Limitations: no limitations History of Present Illness Date Seen by Provider: Mar 19, 2017 Time Seen by Provider: 13:43 Initial Comments To ER with increased swelling in both lower extremities since January. She resides via [facility]. She has a history of congestive heart failure. The right leg is particularly painful. No history DVT. She started on Lasix. She has a stent in the left femoral artery she states. Onset: this evening Severity: moderate Pain/Injury Location: bilateral leg Allergies and Home Medications Allergies Coded Allergies: Penicillins (Verified Allergy, Severe, RASH, 09/15/16) procaine (Verified Allergy, Severe, HIVES, 09/15/16) codeine (Verified Allergy, Mild, 01/09/17) morphine (Verified Allergy, Mild, 01/09/17) fentanyl (Verified Allergy, Unknown, 01/09/17) meperidine (Verified Adverse Reaction, Intermediate, SLEEP, 09/15/16) Home Medications Acetaminophen 325 Mg Tablet, 325-650 MG PO Q6H PRN for PAIN-MILD, (Reported) Albuterol Sulfate 1 Puff Puff, 2 PUFF IH QID PRN for SHORTNESS OF BREATH, ( Reported) 1 PUFF = 90 MCG Allopurinol 100 Mg Tablet, 100 MG PO DAILY, (Reported) Alprazolam 0.5 Mg Tablet, 0.5 MG PO TID PRN for ANXIETY, (Reported) Apixaban 5 Mg Tablet, 10 MG PO BID, #14 10 mg twice a day for 7 days then reduce to 5 mg twice a day thereafter Prescribed by: AYAAN BROWN on 03/19/17 1515 Apixaban 5 Mg Tablet, 5 MG PO BID for 30 Days, #30 Prescribed by: AYAAN BROWN on 03/19/17 1515 Atorvastatin Calcium 10 Mg Tablet, 10 MG PO HS, (Reported) Cholecalciferol (Vitamin D3) 1,000 Unit Capsule, 1,000 UNITS PO DAILY, (Reported ) Docusate Sodium 100 Mg Capsule, 100 MG PO HS PRN for CONSTIPATION-1ST LINE, ( Reported) Furosemide 80 Mg Tablet, 80 MG PO BID, (Reported) Guaifenesin/Dextromethorphan 237 Ml Liquid, 5 ML PO Q4H PRN for COUGH/CONGESTION , (Reported) Insulin Aspart 300 Units/3 Ml Solution, SC ACHS, (Reported) 151-200 = 2 UNITS 201-250 = 4 UNITS 251-300 = 6 UNITS 301-350 = 8 UNITS 351- 400 =10 UNITS >400 = CALL PHYSICIAN Insulin Determir 1,000 Units/10 Ml Soln, 10 UNITS SQ DAILY, (Reported) Melatonin 10 Mg Capsule, 10 MG PO HS PRN for INSOMNIA, (Reported) Metolazone 2.5 Mg Tablet, 2.5 MG PO DAILY, (Reported) Metronidazole 500 Mg Tablet, 500 MG PO TID, #21 Prescribed by: NIVIA MCGRATH on 03/13/17 1039 Nicotine Polacrilex 4 Mg Lozenge, 4 MG BC Q6H PRN for SMOKING CESSATION, ( Reported) Pantoprazole Sodium 40 Mg Tablet.dr, 40 MG PO DAILY, (Reported) Potassium Chloride 20 Meq Tab.er.prt, 20 MEQ PO BID, (Reported) Pramipexole Di-HCl 1 Mg Tablet, 1 MG PO HS, (Reported) Pramipexole Di-HCl 0.25 Mg Tablet, 0.25 MG PO HS, (Reported) Prednisone 20 Mg Tab, 30 MG PO DAILY, (Reported) Propranolol HCl 10 Mg Tablet, 10 MG PO DAILY, (Reported) Quetiapine Fumarate 25 Mg Tablet, 25 MG PO HS, (Reported) Vits A and D/White Pet/Lanolin 42.5 Gm Oint...g., TP DAILY, (Reported) APPLY TO LEGS FOR DRY SKIN Zinc Oxide 28 Gm Oint, TP TID, (Reported) CLEANSE CLEFT WITH SOAP AND WATER, PAT DRY, AND APPLY THREE TIMES PER DAY Constitutional: see HPI EENTM: see HPI Respiratory: no symptoms reported Cardiovascular: no symptoms reported Genitourinary: no symptoms reported Musculoskeletal: no symptoms reported Skin: no symptoms reported Psychiatric/Neurological: No Symptoms Reported Past Qrxnwlw-Rhkjzd-Bafdxa Hx Patient Social History Alcohol Use: Denies Use Recreational Drug Use: No Smoking Status: Former Smoker Type Used: Cigarettes Former Smoker, Quit: Mar 09, 1966 2nd Hand Smoke Exposure: No Recent Foreign Travel: No Contact w/Someone Who Travel: No Recent Infectious Disease Expo: No Recent Hopitalizations: No Immunizations Up To Date Tetanus Booster (TDap): Unknown Date of Pneumonia Vaccine: Dec 28, 2016 Date of Influenza Vaccine: Dec 12, 2016 Seasonal Allergies Seasonal Allergies: No Surgeries History of Surgeries: Yes (NERVE FUSION) Surgeries: Appendectomy, Gallbladder, Hysterectomy, Tubal Ligation Respiratory History of Respiratory Disorde: Yes Respiratory Disorders: Pneumonia, COPD Currently Using CPAP: No Currently Using BIPAP: No Cardiovascular History of Cardiac Disorders: Yes (atrial flutter (per [facility] records), heart failure, arteritis) Cardiac Disorders: Chronic Edema/Swelling, Coronary Artery Disease, High Cholesterol, Hypertension Neurological History of Neurological Disord: Yes (Restless leg syndrome, generalized muscle weakness) Reproductive System Sexually Transmitted Disease: No HIV/AIDS: No Genitourinary History of Genitourinary Disor: Yes Genitourinary Disorders: Renal Failure Gastrointestinal History of Gastrointestinal Di: Yes Gastrointestinal Disorders: Gastroesophageal Reflux Musculoskeletal History of Musculoskeletal Dis: Yes Musculoskeletal Disorders: Rheumatoid Arthritis, Gout Endocrine History of Endocrine Disorders: Yes Endocrine Disorders: Diabetes, Insulin dep HEENT History of HEENT Disorders: No HEENT Disorders: Cataract Loss of Vision: Denies Hearing Impairment: Denies Cancer History of Cancer: No Psychosocial History of Psychiatric Problem: Yes Behavioral Health Disorders: Anxiety Integumentary History of Skin or Integumenta: No Blood Transfusions History of Blood Disorders: Yes (anemia) Family Medical History Significant Family History: No Pertinent Family Hx Family Medial History: Patient reports no known family medical history. Physical Exam Vital Signs Vital Sign - Last 12Hours 03/19/17 13:06 Temp 98.5 Pulse 75 Resp 20 B/P (MAP) 114/62 (79) Pulse Ox 99 O2 Delivery Room Air Capillary Refill : Less Than 3 Seconds General Appearance: WD/WN, no apparent distress HEENT: PERRL/EOMI, normal ENT inspection Neck: non-tender, full range of motion Respiratory: normal breath sounds, no respiratory distress, no accessory muscle use Gastrointestinal: non tender, soft Hips: bilateral hip non-tender, bilateral hip normal inspection, bilateral hip normal range of motion Legs: bilateral leg other (tenderness, 4+ pitting edema bilaterally. Tenderness extends proximally to the knee on both sides. There is no erythema or wound. Capillary refill of each great toe is 3 seconds. Due to the swelling and each foot are unable to palpate a dorsalis pedis pulse but I was very easily able to find blood flow in the dorsalis pedis artery with ultrasound. Each lower extremely is warm) Knees: bilateral knee non-tender, bilateral knee normal inspection, bilateral knee normal range of motion Ankles: bilateral ankle non-tender, bilateral ankle normal range of motion, bilateral ankle swelling Feet: bilateral foot swelling Neurologic/Psychiatric: alert, normal mood/affect, oriented x 3 Skin: normal color, warm/dry Progress/Results/Core Measures Results/Orders Lab Results Laboratory Tests Test 03/19/17 14:15 Range/Units White Blood Count 18.4 H 4.3-11.0 10^3/uL Red Blood Count 3.32 L 4.35-5.85 10^6/uL Hemoglobin 9.9 L 11.5-16.0 G/DL Hematocrit 31 L 35-52 % Mean Corpuscular Volume 93 80-99 FL Mean Corpuscular Hemoglobin 30 25-34 PG Mean Corpuscular Hemoglobin Concent 32 32-36 G/DL Red Cell Distribution Width 17.4 H 10.0-14.5 % Platelet Count 113 L 130-400 10^3/uL Mean Platelet Volume 11.7 H 7.4-10.4 FL Neutrophils (%) (Auto) 88 H 42-75 % Lymphocytes (%) (Auto) 10 L 12-44 % Monocytes (%) (Auto) 2 0-12 % Eosinophils (%) (Auto) 0 0-10 % Basophils (%) (Auto) 0 0-10 % Neutrophils # (Auto) 16.2 H 1.8-7.8 X 10^3 Lymphocytes # (Auto) 1.9 1.0-4.0 X 10^3 Monocytes # (Auto) 0.3 0.0-1.0 X 10^3 Eosinophils # (Auto) 0.0 0.0-0.3 10^3/uL Basophils # (Auto) 0.1 0.0-0.1 10^3/uL Neutrophils % (Manual) 78 % Lymphocytes % (Manual) 8 % Monocytes % (Manual) 4 % Eosinophils % (Manual) 0 % Basophils % (Manual) 0 % Metamyelocytes % 1 % Myelocytes % 3 % Band Neutrophils 6 % Poikilocytosis SLIGHT Anisocytosis SLIGHT Sodium Level 135 135-145 MMOL/L Potassium Level 3.7 3.6-5.0 MMOL/L Chloride Level 96 L 98-107 MMOL/L Carbon Dioxide Level 24 21-32 MMOL/L Anion Gap 15 H 5-14 MMOL/L Blood Urea Nitrogen 77 H 7-18 MG/DL Creatinine 3.26 H 0.60-1.30 MG/DL Estimat Glomerular Filtration Rate 14 BUN/Creatinine Ratio 24 Glucose Level 304 H 70-105 MG/DL Calcium Level 8.6 8.5-10.1 MG/DL Total Bilirubin 0.2 0.1-1.0 MG/DL Aspartate Amino Transf (AST/SGOT) 13 5-34 U/L Alanine Aminotransferase (ALT/SGPT) 14 0-55 U/L Alkaline Phosphatase 93 40-136 U/L B-Type Natriuretic Peptide 156.9 H <100.0 PG/ML Total Protein 5.0 L 6.4-8.2 GM/DL Albumin 2.7 L 3.2-4.5 GM/DL My Orders Orders - AYAAN BROWN APRN Cbc With Automated Diff (03/19/17 13:42) Comprehensive Metabolic Panel (03/19/17 13:42) BNP (03/19/17 13:42) Chest 1 View, Ap/Pa Only (03/19/17 13:42) Us Venous Lower Ext Abdelrahman (03/19/17 13:42) Ondansetron Oral Dissolve Tab (Zofran (03/19/17 14:15) Manual Differential (03/19/17 14:15) Medications Given in ED Current Medications Medications Dose Ordered Sig/Tyson Route Start Time Stop Time Status Last Admin Dose Admin Ondansetron HCl 4 mg ONCE ONCE PO 03/19/17 14:15 03/19/17 14:16 DC 03/19/17 14:12 4 MG Vital Signs/I&O Vital Sign - Last 12Hours 03/19/17 13:06 Temp 98.5 Pulse 75 Resp 20 B/P (MAP) 114/62 (79) Pulse Ox 99 O2 Delivery Room Air Blood Pressure Mean: 79 Departure Communication (Admissions) Progress Notes 1504-Discussed with with Dr Mclaughlin. Advises transfer to facility with nephrology. Discussed with patient, she says "No im not going. Make me an appointment and Ill go later but Carie been in the hospital for 92 days and Im going home". I will have her sign out AMA and start on Xarelto. O2 sats are fine at 96% on her baseline 3liters of O2 and she denies any sensatino of dyspnea. Impression Impression: Primary Impression: Acute on chronic renal failure Additional Impression: DVT, bilateral lower limbs Disposition: AGAINST MEDICAL ADVICE Condition: Against Medical Advice Departure-Patient Inst. Decision time for Depature: 15:10 Referrals: MAGGIE MCLAUGHLIN MD (PCP/Family) Primary Care Physician Patient Instructions: Deep Vein Thrombosis (Blood Clots in the Legs) (DC), Dependent Edema (DC) Add. Discharge Instructions: 1. Anticoagulants as directed 2. REturn to ER for any worsening 3. Call in [place] nephrology clinic at [phone] in order to make an appointment for Laura to be seen for her chronic kidney disease as soon as they can see her. Scripts Apixaban (Eliquis) 5 Mg Tablet 5 MG PO BID for 30 Days, #30 TAB Prov: AYAAN BROWN APRN 03/19/17 Apixaban (Eliquis) 5 Mg Tablet 10 MG PO BID, #14 TAB 10 mg twice a day for 7 days then reduce to 5 mg twice a day thereafter Prov: AYAAN BROWN APRN 03/19/17 Copy Copies To 1: MAGGIE MCLAUGHLIN MD, PETER J APRN Mar 19, 2017 13:45
[2017-03-19] MEDS ORDERED: ONDANSETRON 4 MG (ZOFRAN) ORAL DISSOLVE TAB PO ONE (14:15)
[2017-03-19 14:22] LABS: BASOPHILS # (AUTO) 0.1 10^3/uL (0.0-0.1); BASOPHILS % (AUTO) 0 % (0-10); EOSINOPHILS % (AUTO) 0 % (0-10); HEMATOCRIT 31 % (35-52); HEMOGLOBIN 9.9 G/DL (11.5-16.0); LYMPHOCYTES # (AUTO) 1.9 X 10^3 (1.0-4.0); LYMPHOCYTES % (AUTO) 10 % (12-44); MEAN CORPUSCULAR HEMOGLOBIN 30 PG (25-34); MEAN CORPUSCULAR HGB CONC 32 G/DL (32-36); MEAN CORPUSCULAR VOLUME 93 FL (80-99); MEAN PLATELET VOLUME 11.7 FL (7.4-10.4); MONOCYTES # (AUTO) 0.3 X 10^3 (0.0-1.0); MONOCYTES % (AUTO) 2 % (0-12); NEUTROPHILS # (AUTO) 16.2 X 10^3 (1.8-7.8); NEUTROPHILS % (AUTO) 88 % (42-75); PLATELET COUNT 113 10^3/uL (130-400); RED BLOOD COUNT 3.32 10^6/uL (4.35-5.85); RED CELL DISTRIBUTION WIDTH 17.4 % (10.0-14.5); WHITE BLOOD COUNT 18.4 10^3/uL (4.3-11.0)
[2017-03-19 14:36] LABS: BAND NEUTROPHILS 6 %; NEUTROPHILS % (MANUAL) 78 %
[2017-03-19 14:37] LABS: ANISOCYTOSIS SLIGHT; BASOPHILS % (MANUAL) 0 %; EOSINOPHILS % (MANUAL) 0 %; LYMPHOCYTES % (MANUAL) 8 %; METAMYELOCYTES % 1 %; MONOCYTES % (MANUAL) 4 %; MYELOCYTES % 3 %; POIKILOCYTOSIS SLIGHT
[2017-03-19 14:46] LABS: ALBUMIN 2.7 GM/DL (3.2-4.5); BILIRUBIN,TOTAL 0.2 MG/DL (0.1-1.0); CALCIUM 8.6 MG/DL (8.5-10.1); CREATININE SERUM 3.26 MG/DL (0.60-1.30); POTASSIUM 3.7 MMOL/L (3.6-5.0)
--- NOTE | 2017-03-19 15:02 | Diagnostic Imaging Report ---
INDICATION: Leg swelling. TIME OF EXAM: 2:50 PM COMPARISON: Correlation is made with prior study from 03/09/2017. FINDINGS: The heart size is stable. There is some increased parenchymal density in the right base, perhaps mild infiltrate or atelectasis. The remainder of the lung burgess are clear. No effusion or pneumothorax is seen. IMPRESSION: Slight increase in right basilar infiltrate or atelectasis when compared with exam from 03/09/2017. Dictated by: Dictated on workstation # [id number]
--- NOTE | 2017-03-19 15:02 | Diagnostic Imaging Report ---
INDICATION: Bilateral lower extremity edema. TECHNIQUE: Grayscale and color Doppler evaluation of the deep veins of both lower extremities was performed. FINDINGS: There is extensive filling defect and occlusive thrombosis of the common femoral, superficial femoral, and popliteal veins. There is also occlusion of left calf veins. IMPRESSION: Extensive bilateral deep venous thrombosis throughout the thighs and into the left calf. Dictated by: Dictated on workstation # [id number]
[2017-03-19] MEDS ORDERED: APIX5TAB PO (15:15)
[2017-03-19 15:30] VITALS: BP 114/62
== END 2017-03-19 15:32 | disposition left against medical advice (07) ==
LOC: EDUNIT# 12:39 → ER 12:41
DX: E11.22 Type 2 diabetes mellitus with diabetic chronic kidney disease (principal); I12.9 Hypertensive chronic kidney disease with stage 1 through stage 4 chronic kidney disease, or unspecified chronic kidney disease; N18.9 Chronic kidney disease, unspecified; I82.403 Acute embolism and thrombosis of unspecified deep veins of lower extremity, bilateral; J44.9 Chronic obstructive pulmonary disease, unspecified; I25.10 Atherosclerotic heart disease of native coronary artery without angina pectoris; E78.00 Pure hypercholesterolemia, unspecified; I25.2 Old myocardial infarction; M10.9 Gout, unspecified; M06.9 Rheumatoid arthritis, unspecified; F41.9 Anxiety disorder, unspecified; K21.9 Gastro-esophageal reflux disease without esophagitis; Z90.49 Acquired absence of other specified parts of digestive tract; Z90.710 Acquired absence of both cervix and uterus; Z87.01 Personal history of pneumonia (recurrent); Z98.51 Tubal ligation status; Z87.891 Personal history of nicotine dependence; Z79.01 Long term (current) use of anticoagulants; Z79.4 Long term (current) use of insulin; Z88.0 Allergy status to penicillin; Z88.5 Allergy status to narcotic agent; Z88.4 Allergy status to anesthetic agent; Z79.52 Long term (current) use of systemic steroids
CPT/HCPCS: 36415; 71045; 80053; 83880; 85007; 85027; 93970; 99283

== ENCOUNTER 2017-03-23 14:05 | Emergency (ER) | payer MEDICARE, MEDICAID ==
[~2017-03-23] VITALS: Ht 167.6 cm; Wt 90.7 kg
[~2017-03-23 14:05] MED LIST changes: +APIX5TAB PO
--- OUTSIDE RECORDS SUMMARY | 2017-03-23 14:24 | XMS REPORT | Continuity of Care Document ---
Author Author [facility] Organization [facility] Address Unknown Phone Unavailable Allergies Active Description Code Type Severity Reaction Onset Reported/Identified Relationship to Patient Clinical Status Yes Penicillins [id number] Drug Allergy Severe RASH 09/15/2016 Yes procaine [id number] Drug Allergy Severe HIVES 09/15/2016 Yes meperidine [id number] Drug Allergy Moderate SLEEP 09/15/2016 Yes No Known Drug Allergies [id number] Drug Allergy Unknown N/A 09/15/2016 Yes codeine [id number] Drug Allergy Mild N/A 01/09/2017 Yes morphine [id number] Drug Allergy Mild N/A 01/09/2017 Yes fentanyl [id number] Drug Allergy Unknown N/A 01/09/2017 Medications There [...] Ot R53.83 OTHER FATIGUE 09/15/2016 AYAAN BROWN INSPECTOR LINE Ot M06.9 RHEUMATOID ARTHRITIS, UNSPECIFIED 09/15/2016 AYAAN BROWN INSPECTOR LINE Ot M25.631 STIFFNESS OF RIGHT WRIST, NOT ELSEWHERE 09/15/2016 IZABELLA CALI MD Ot E04.1 NONTOXIC SINGLE THYROID NODULE 09/15/2016 IZABELLA CALI MD Ot 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, UNSPECIFIED 09/15/2016 IZABELLA CALI MD Ot R53.83 OTHER FATIGUE 09/19/2016 AYAAN BROWN INSPECTOR LINE Ot M06.9 RHEUMATOID ARTHRITIS, UNSPECIFIED 09/19/2016 AYAAN BROWN INSPECTOR LINE Ot M25.631 STIFFNESS OF RIGHT WRIST, NOT [...] 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 01/09/2017 VCI VILLATORO MD, Ot J44.9 CHRONIC OBSTRUCTIVE PULMONARY [...] EDEMA 01/09/2017 VIC VILLATORO MD Ot Z79.4 BAGGAGE SMASHER (CURRENT) USE OF INSULIN 01/09/2017 VIC VILLATORO [...] 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 02/28/2017 NIVIA MCGRATH MD, Ot E78.00 PURE HYPERCHOLESTEROLEMIA, UNSPECIFIED 02/28/2017 NIVIA MCGRATH MD, Ot F41.9 ANXIETY DISORDER, UNSPECIFIED 02/28/2017 NIVIA MCGRATH MD Ot G25.81 RESTLESS LEGS SYNDROME 02/28/2017 NIVIA MCGRATH MD Ot I10 ESSENTIAL (PRIMARY) HYPERTENSION 02/28/2017 NIVIA MCGRATH MD, Ot I25.10 ATHSCL HEART DISEASE OF [place] CORONARY 02/28/2017 NIVIA MCGRATH MD, Ot I48.92 [...] COMM 02/28/2017 NIVIA MCGRATH MD Ot Z79.4 BAGGAGE SMASHER (CURRENT) USE OF INSULIN 02/28/2017 NIVIA MCGRATH MD Ot Z86.79 PERSONAL HISTORY OF OTHER DISEASES OF TH 03/01/2017 NIVIA MCGRATH MD, Ot A41.9 SEPSIS, UNSPECIFIED ORGANISM 03/01/2017 NIVIA MCGRATH MD Ot 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 03/01/2017 NIVIA MCGRATH MD, Ot E78.00 PURE HYPERCHOLESTEROLEMIA, UNSPECIFIED 03/01/2017 RAMIAL MD, NIVIA M Ot F41.9 ANXIETY DISORDER, UNSPECIFIED 03/01/2017 NIVIA MCGRATH MD, Ot G25.81 RESTLESS LEGS SYNDROME 03/01/2017 NIVIA MCGRATH MD, Ot I10 ESSENTIAL (PRIMARY) HYPERTENSION 03/01/2017 NIVIA MCGRATH MD, Ot I25.10 ATHSCL HEART DISEASE OF [place] CORONARY 03/01/2017 NIVIA MCGRATH MD, Ot I48.92 [...] COMM 03/01/2017 NIVIA MCGRATH MD Ot Z79.4 BAGGAGE SMASHER (CURRENT) USE OF INSULIN 03/01/2017 NIVIA MCGRATH [...] MD, Ot I25.10 ATHSCL HEART DISEASE OF [place] CORONARY 03/12/2017 NIVIA MCGRATH MD, Ot I48.92 [...] RESUSCITATE 03/12/2017 NIVIA MCGRATH MD, Ot Z79.4 PRISON (CURRENT) USE OF INSULIN 03/12/2017 NIVIA MCGRATH [...] Ot E78.00 PURE HYPERCHOLESTEROLEMIA, UNSPECIFIED 03/13/2017 NIVIA CMGRATH MD, Ot E83.42 HYPOMAGNESEMIA 03/13/2017 NIVIA MCGRATH [...] MD, Ot I25.10 ATHSCL HEART DISEASE OF [place] CORONARY 03/13/2017 NIVIA MCGRATH MD, Ot I48.92 [...] RESUSCITATE 03/13/2017 NIVIA MCGRATH MD Ot Z79.4 PRISON (CURRENT) USE OF INSULIN 03/13/2017 NIVIA MCGRATH [...] 19:01 Bacteria identification in wound by culture [id number] NR FREE TEXT EXTERNAL SENSITIVITY REPORTED 01/11/17 [...] INFLUENZA A AND B ANTIGENS BY [facility] Complete blood count (CBC) with [...] measurement by glucometer (mass/volume) 293 mg/dL 70-110 Complete blood count (CBC) with automated white blood cell (WBC) differential - 03/19/17 14:15 Blood leukocytes automated count (number/volume) 18.4 10*3/uL 4.3-11.0 Blood erythrocytes automated count (number/volume) 3.32 10*6/uL 4.35-5.85 Venous blood hemoglobin measurement (mass/volume) 9.9 g/dL 11.5-16.0 Blood hematocrit (volume fraction) 31 % 35-52 Automated erythrocyte mean corpuscular volume 93 [foz_us] 80-99 Automated erythrocyte mean corpuscular hemoglobin (mass per erythrocyte) 30 pg 25-34 Automated erythrocyte mean corpuscular hemoglobin concentration measurement ( mass/volume) 32 g/dL 32-36 Automated erythrocyte distribution width ratio 17.4 % 10.0-14.5 Automated blood platelet count (count/volume) 113 10*3/uL 130-400 Automated blood platelet mean volume measurement 11.7 [foz_us] 7.4-10.4 Automated blood neutrophils/100 leukocytes 88 % 42-75 Automated blood lymphocytes/100 leukocytes 10 % 12-44 Blood monocytes/100 leukocytes 2 % 0-12 Automated blood eosinophils/100 leukocytes 0 % 0-10 Automated blood basophils/100 leukocytes 0 % 0-10 Blood neutrophils automated count (number/volume) 16.2 10*3 1.8-7.8 Blood lymphocytes automated count (number/volume) 1.9 10*3 1.0-4.0 Blood monocytes automated count (number/volume) 0.3 10*3 0.0-1.0 Automated eosinophil count 0.0 10*3/uL 0.0-0.3 Automated blood basophil count (count/volume) 0.1 10*3/uL 0.0-0.1 Blood manual differential performed detection - 03/19/17 14:15 Blood monocytes/100 leukocytes 4 % NRG Manual blood segmented neutrophils/100 leukocytes 78 % NRG Blood band neutrophils/100 leukocytes 6 % NRG Manual blood lymphocytes/100 leukocytes 8 % NRG Manual eosinophils/100 leukocytes in nose 0 % NRG Manual blood basophils/100 leukocytes 0 % NRG Blood anisocytosis detection by light microscopy SLIGHT NRG Manual blood metamyelocytes/100 leukocytes 1 % NRG Blood poikilocytosis detection by light microscopy SLIGHT NRG Manual blood myelocytes/100 leukocytes 3 % NRG Comprehensive metabolic panel - 03/19/17 14:15 Serum or plasma sodium measurement (moles/volume) 135 mmol/L 135-145 Serum or plasma potassium measurement (moles/volume) 3.7 mmol/L 3.6-5.0 Serum or plasma chloride measurement (moles/volume) 96 mmol/L 98-107 Carbon dioxide 24 mmol/L 21-32 Serum or plasma anion gap determination (moles/volume) 15 mmol/L 5-14 Serum or plasma urea nitrogen measurement (mass/volume) 77 mg/dL 7-18 Serum or plasma creatinine measurement (mass/volume) 3.26 mg/dL 0.60-1.30 Serum or plasma urea nitrogen/creatinine mass ratio 24 NRG Serum or plasma creatinine measurement with calculation of estimated glomerular filtration rate 14 NRG Serum or plasma glucose measurement (mass/volume) 304 mg/dL 70-105 Serum or plasma calcium measurement (mass/volume) 8.6 mg/dL 8.5-10.1 Serum or plasma total bilirubin measurement (mass/volume) 0.2 mg/dL 0.1-1.0 Serum or plasma alkaline phosphatase measurement (enzymatic activity/volume) 93 U/L 40-136 Serum or plasma aspartate aminotransferase measurement (enzymatic activity/ volume) 13 U/L 5-34 Serum or plasma alanine aminotransferase measurement (enzymatic activity/volume ) 14 U/L 0-55 Serum or plasma protein measurement (mass/volume) 5.0 g/dL 6.4-8.2 Serum or plasma albumin measurement (mass/volume) 2.7 g/dL 3.2-4.5 Serum or plasma lithium measurement (moles/volume) - 03/19/17 14:15 BNP level 156.9 pg/mL <100.0 Encounters ACCT No. Visit Date/Time Discharge Status Pt. Type Provider Facility Loc./Unit Complaint [id number] 03/09/2017 15:50:00 03/13/2017 14:30:00 DIS Outpatient NIVIA MCGRATH MD [facility] 4TH PNEUMONIA,SEPSIS [id number] 02/27/2017 16:41:00 03/01/2017 17:20:00 DIS Inpatient NIVIA MCGRATH MD [facility] 4TH SEPSIS,RLL PNEUMONIA, INFLUENZA EXPOSURE,CICD,DM, [id number] 01/09/2017 16:02:00 01/09/2017 19:29:00 DIS Emergency SHAUNA LOZA, VIC Barron [facility] ER KIDNEY FAILURE [id number] 01/08/2017 11:27:00 01/08/2017 23:59:59 CLS Outpatient LACY LOZA, ANTONIA [facility] LAB N18.4,R60.0 [id number] 09/15/2016 11:04:00 09/15/2016 12:12:00 DIS Emergency AYAAN BROWN APRN [facility] ER ARTHRITIS [id number] 06/18/2015 12:05:00 06/18/2015 23:59:59 CLS Outpatient VIRAJ LOZA, IZABELLA Barrios [facility] RAD RIGHT THYROID NODULE, HAIR LOSS [id number] 03/19/2017 14:22:00 Document Registration
[2017-03-23 14:43] LABS: BASOPHILS % (AUTO) 0 % (0-10); EOSINOPHILS # (AUTO) 0.1 10^3/uL (0.0-0.3); EOSINOPHILS % (AUTO) 0 % (0-10); HEMATOCRIT 27 % (35-52); HEMOGLOBIN 8.6 G/DL (11.5-16.0); LYMPHOCYTES # (AUTO) 1.6 X 10^3 (1.0-4.0); LYMPHOCYTES % (AUTO) 13 % (12-44); MEAN CORPUSCULAR HEMOGLOBIN 30 PG (25-34); MEAN CORPUSCULAR HGB CONC 32 G/DL (32-36); MEAN CORPUSCULAR VOLUME 95 FL (80-99); MEAN PLATELET VOLUME 11.4 FL (7.4-10.4); MONOCYTES # (AUTO) 0.5 X 10^3 (0.0-1.0); MONOCYTES % (AUTO) 4 % (0-12); NEUTROPHILS # (AUTO) 10.6 X 10^3 (1.8-7.8); NEUTROPHILS % (AUTO) 83 % (42-75); PLATELET COUNT 179 10^3/uL (130-400); RED BLOOD COUNT 2.88 10^6/uL (4.35-5.85); RED CELL DISTRIBUTION WIDTH 17.8 % (10.0-14.5); WHITE BLOOD COUNT 12.8 10^3/uL (4.3-11.0)
--- NOTE | 2017-03-23 15:00 | Diagnostic Imaging Report ---
PATIENT HISTORY: Altered mental status, lethargy. TECHNIQUE: Single frontal view of the chest. COMPARISON: 03/19/2017 and priors. FINDINGS: Lung volumes are normal. There are right basilar airspace opacities which appear mildly more prominent when compared to the previous exam. No pleural effusion or pneumothorax is seen. The cardiac silhouette is mildly prominent. There is aortic atherosclerosis. IMPRESSION: 1. Right basilar airspace opacities are mildly more prominent when compared to the prior study, may represent atelectasis or infiltrate. Dictated by: Dictated on workstation # [id number]
[2017-03-23 15:04] LABS: ALBUMIN 2.5 GM/DL (3.2-4.5); BILIRUBIN,TOTAL 0.3 MG/DL (0.1-1.0); CREATININE SERUM 3.2 MG/DL (0.60-1.30); POTASSIUM 4.1 MMOL/L (3.6-5.0); TOTAL PROTEIN 4.2 GM/DL (6.4-8.2)
[2017-03-23] MEDS ORDERED: RX-OSELTAMIVIR 75 MG (TAMIFLU) BOX OF 10 PO STA (15:21)
[2017-03-23] MEDS ORDERED: CEFEPIME INJECTION 2,000 MG in NS (IVPB) 50 ML IV ONE (16:30)
[2017-03-23] MEDS ORDERED: OSELTAMIVIR PO ONE (16:30)
[2017-03-23] MEDS ORDERED: NS IV 1000 ML 1,000 ML IV ONE (16:38)
[2017-03-23 17:03] VITALS: BP 109/53
[2017-03-23 17:14] LABS: BILIRUBIN,URINE NEGATIVE (NEGATIVE); CLARITY,URINE SLIGHTLY CLOUDY; COLOR,URINE YELLOW; GLUCOSE, URINE (UA) NEGATIVE (NEGATIVE); KETONES,URINE NEGATIVE (NEGATIVE); LEUKOCYTE ESTERASE ,URINE 1+ (NEGATIVE); NITRITE,URINE NEGATIVE (NEGATIVE); PH,URINE 5 (5-9); PROTEIN,URINE 1+ (NEGATIVE); UROBILINOGEN,URINE NORMAL (NORMAL)
[2017-03-23 17:21] LABS: AMORPHOUS SEDIMENT,UR MOD AMOR URATES /LPF; BACTERIA,URINE NEGATIVE /HPF
[2017-03-23 17:46] VITALS: BP 112/63
--- NOTE | 2017-03-23 18:00 | ED General ---
General Chief Complaint: Neurological Problems Stated Complaint: AMS LETHARGY TREMORS Nursing Triage Note: TO ED PER EMS FROM [facility]. STAFF REPORT THAT SHE HAS BEEN LETHARGIC Nursing Sepsis Screen: No Definite Risk Source of Information: Patient, EMS, Residential Records, Old Records Exam Limitations: Other (confusion) History of Present Illness Date Seen by Provider: Mar 23, 2017 Time Seen by Provider: 14:07 Initial Comments This 77-year-old woman is brought to the emergency room via EMS from the shelter at [facility] where she was found to have more confusion beyond her baseline and a temperature up to 100.6. She has had a couple of recent admissions in February for pneumonia and sepsis. She also was seen in this ER a couple of days ago and found to have significant renal failure with a creatinine above 3.2. At that time it was recommended that she be transferred to [facility] for further evaluation by her light rail vehicle operator, Dr. Blanchard. Patient refused transfer at that time and was discharged AMA back to the shelter. I discussed the case with patient's PA who sees her at the shelter. She reports creatinine yesterday was 3.5. Patient is somewhat confused today. She knows where she is and her approximate age. However, she believes it is July but does note that it is . She asked for a remote control because she was thirsty and then proceeded to try dialing her family on the remote control. She is more lucid at other times. 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 She is afebrile on arrival. It has also been noted the patient was recently started on gabapentin which may be contributing to her mental status issues. She did not receive any gabapentin today. Fingerstick blood sugar prior to arrival was 259. Allergies and Home Medications Allergies Coded Allergies: Penicillins (Verified Allergy, Severe, RASH, 09/15/16) procaine (Verified Allergy, Severe, HIVES, 09/15/16) codeine (Verified Allergy, Mild, 01/09/17) morphine (Verified Allergy, Mild, 01/09/17) fentanyl (Verified Allergy, Unknown, 01/09/17) meperidine (Verified Adverse Reaction, Intermediate, SLEEP, 09/15/16) Home Medications Acetaminophen 325 Mg Tablet, 325-650 MG PO Q6H PRN for PAIN-MILD, (Reported) Albuterol Sulfate 1 Puff Puff, 2 PUFF IH QID PRN for SHORTNESS OF BREATH, ( Reported) 1 PUFF = 90 MCG Allopurinol 100 Mg Tablet, 100 MG PO DAILY, (Reported) Alprazolam 0.5 Mg Tablet, 0.5 MG PO TID PRN for ANXIETY, (Reported) Apixaban 5 Mg Tablet, 10 MG PO BID, #14 10 mg twice a day for 7 days then reduce to 5 mg twice a day thereafter Prescribed by: AYAAN BROWN on 03/19/17 1515 Apixaban 5 Mg Tablet, 5 MG PO BID for 30 Days, #30 Prescribed by: AYAAN BROWN on 03/19/17 1515 Atorvastatin Calcium 10 Mg Tablet, 10 MG PO HS, (Reported) Cholecalciferol (Vitamin D3) 1,000 Unit Capsule, 1,000 UNITS PO DAILY, (Reported ) Docusate Sodium 100 Mg Capsule, 100 MG PO HS PRN for CONSTIPATION-1ST LINE, ( Reported) Furosemide 80 Mg Tablet, 80 MG PO BID, (Reported) Guaifenesin/Dextromethorphan 237 Ml Liquid, 5 ML PO Q4H PRN for COUGH/CONGESTION , (Reported) Insulin Aspart 300 Units/3 Ml Solution, SC ACHS, (Reported) 151-200 = 2 UNITS 201-250 = 4 UNITS 251-300 = 6 UNITS 301-350 = 8 UNITS 351- 400 =10 UNITS >400 = CALL PHYSICIAN Insulin Determir 1,000 Units/10 Ml Soln, 10 UNITS SQ DAILY, (Reported) Melatonin 10 Mg Capsule, 10 MG PO HS PRN for INSOMNIA, (Reported) Metolazone 2.5 Mg Tablet, 2.5 MG PO DAILY, (Reported) Metronidazole 500 Mg Tablet, 500 MG PO TID, #21 Prescribed by: NIVIA MCGRATH on 03/13/17 1039 Nicotine Polacrilex 4 Mg Lozenge, 4 MG BC Q6H PRN for SMOKING CESSATION, ( Reported) Pantoprazole Sodium 40 Mg Tablet.dr, 40 MG PO DAILY, (Reported) Potassium Chloride 20 Meq Tab.er.prt, 20 MEQ PO BID, (Reported) Pramipexole Di-HCl 1 Mg Tablet, 1 MG PO HS, (Reported) Pramipexole Di-HCl 0.25 Mg Tablet, 0.25 MG PO HS, (Reported) Prednisone 20 Mg Tab, 30 MG PO DAILY, (Reported) Propranolol HCl 10 Mg Tablet, 10 MG PO DAILY, (Reported) Quetiapine Fumarate 25 Mg Tablet, 25 MG PO HS, (Reported) Vits A and D/White Pet/Lanolin 42.5 Gm Oint...g., TP DAILY, (Reported) APPLY TO LEGS FOR DRY SKIN Zinc Oxide 28 Gm Oint, TP TID, (Reported) CLEANSE CLEFT WITH SOAP AND WATER, PAT DRY, AND APPLY THREE TIMES PER DAY Constitutional: see HPI EENTM: see HPI Respiratory: see HPI Cardiovascular: no symptoms reported Gastrointestinal: no symptoms reported Genitourinary: see HPI : No Musculoskeletal: no symptoms reported Skin: no symptoms reported Psychiatric/Neurological: See HPI Hematologic/Lymphatic: No Symptoms Reported Immunological/Allergic: no symptoms reported Past Hkyenic-Zsjbew-Jlqlpa Hx Patient Social History Alcohol Use: Denies Use Recreational Drug Use: No Type Used: Cigarettes Former Smoker, Quit: Mar 09, 1966 2nd Hand Smoke Exposure: No Recent Foreign Travel: No Contact w/Someone Who Travel: No Recent Infectious Disease Expo: No Recent Hopitalizations: No Immunizations Up To Date Tetanus Booster (TDap): Unknown Date of Pneumonia Vaccine: Dec 28, 2016 Date of Influenza Vaccine: Dec 12, 2016 Seasonal Allergies Seasonal Allergies: No Surgeries History of Surgeries: Yes (NERVE FUSION) Surgeries: Appendectomy, Gallbladder, Hysterectomy, Tubal Ligation Respiratory History of Respiratory Disorde: Yes Respiratory Disorders: Pneumonia, COPD Currently Using CPAP: No Currently Using BIPAP: No Cardiovascular History of Cardiac Disorders: Yes (atrial flutter (per [facility] records), heart failure, arteritis) Cardiac Disorders: Chronic Edema/Swelling, Coronary Artery Disease, Deep Vein Thrombosis, High Cholesterol, Hypertension Neurological History of Neurological Disord: Yes (Restless leg syndrome, generalized muscle weakness) Reproductive System Sexually Transmitted Disease: No HIV/AIDS: No Genitourinary History of Genitourinary Disor: Yes Genitourinary Disorders: Renal Failure Gastrointestinal History of Gastrointestinal Di: Yes Gastrointestinal Disorders: Gastroesophageal Reflux Musculoskeletal History of Musculoskeletal Dis: Yes Musculoskeletal Disorders: Rheumatoid Arthritis, Gout Endocrine History of Endocrine Disorders: Yes Endocrine Disorders: Diabetes, Insulin dep HEENT History of HEENT Disorders: No HEENT Disorders: Cataract Loss of Vision: Denies Hearing Impairment: Denies Cancer History of Cancer: No Psychosocial History of Psychiatric Problem: Yes Behavioral Health Disorders: Anxiety Integumentary History of Skin or Integumenta: No Blood Transfusions History of Blood Disorders: Yes (anemia) Family Medical History Significant Family History: No Pertinent Family Hx Family Medial History: Patient reports no known family medical history. Physical Exam Vital Signs Vital Sign - Last 12Hours 03/23/17 03/23/17 14:05 15:50 Temp 98.4 Pulse 84 Resp 18 B/P (MAP) 109/56 (73) Pulse Ox 88 O2 Delivery Room Air O2 Flow Rate 3.00 Capillary Refill : Less Than 3 Seconds General Appearance: No Apparent Distress, WD/WN HEENT: PERRL/EOMI, Normal ENT Inspection, Other (oropharynx dry) Neck: Normal Inspection Respiratory: Lungs Clear, No Accessory Muscle Use, No Respiratory Distress, Decreased Breath Sounds Cardiovascular: Regular Rate, Rhythm, No Murmur, Other (marketed bilateral lower extremity pitting edema) Gastrointestinal: Normal Bowel Sounds, Non Tender, Soft Extremity: Pedal Edema (tender pitting edema equal bilaterally) Neurologic/Psychiatric: Alert, No Motor/Sensory Deficits, Normal Mood/Affect, 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-XII Norm as Tested, Other (intermittently confused) Skin: Normal Color, Warm/Dry Focused Exam Evaluation Lactate Level Laboratory Tests 03/23/17 14:29: Lactic Acid Level 2.17*H Lactic Acid Level Progress/Results/Core Measures Suspected Sepsis Recent Fever Within 48 Hours: No Infection Criteria Present: None New/Unexplained Altered Menta: No Sepsis Screen: No Definite Risk Sepsis Diagnosis: SIRS Temperature:98.4 Pulse: 77 Respiratory Rate: 18 Laboratory Tests 03/23/17 14:29: White Blood Count 12.8H Blood Pressure 112 /63 Mean: 79 Laboratory Tests 03/23/17 14:29: Lactic Acid Level 2.17*H Laboratory Tests 03/23/17 14:29: Creatinine 3.20H, Platelet Count 179, Total Bilirubin 0.3 Results/Orders Lab Results Laboratory Tests Test 03/23/17 14:29 03/23/17 17:06 Range/Units White Blood Count 12.8 H 4.3-11.0 10^3/uL Red Blood Count 2.88 L 4.35-5.85 10^6/uL Hemoglobin 8.6 L 11.5-16.0 G/DL Hematocrit 27 L 35-52 % Mean Corpuscular Volume 95 80-99 FL Mean Corpuscular Hemoglobin 30 25-34 PG Mean Corpuscular Hemoglobin Concent 32 32-36 G/DL Red Cell Distribution Width 17.8 H 10.0-14.5 % Platelet Count 179 130-400 10^3/uL Mean Platelet Volume 11.4 H 7.4-10.4 FL Neutrophils (%) (Auto) 83 H 42-75 % Lymphocytes (%) (Auto) 13 12-44 % Monocytes (%) (Auto) 4 0-12 % Eosinophils (%) (Auto) 0 0-10 % Basophils (%) (Auto) 0 0-10 % Neutrophils # (Auto) 10.6 H 1.8-7.8 X 10^3 Lymphocytes # (Auto) 1.6 1.0-4.0 X 10^3 Monocytes # (Auto) 0.5 0.0-1.0 X 10^3 Eosinophils # (Auto) 0.1 0.0-0.3 10^3/uL Basophils # (Auto) 0.0 0.0-0.1 10^3/uL Sodium Level 135 135-145 MMOL/L Potassium Level 4.1 3.6-5.0 MMOL/L Chloride Level 97 L 98-107 MMOL/L Carbon Dioxide Level 23 21-32 MMOL/L Anion Gap 15 H 5-14 MMOL/L Blood Urea Nitrogen 100 *H 7-18 MG/DL Creatinine 3.20 H 0.60-1.30 MG/DL Estimat Glomerular Filtration Rate 14 BUN/Creatinine Ratio 31 Glucose Level 249 H 70-105 MG/DL Lactic Acid Level 2.17 *H 0.50-2.00 MMOL/L Calcium Level 8.0 L 8.5-10.1 MG/DL Total Bilirubin 0.3 0.1-1.0 MG/DL Aspartate Amino Transf (AST/SGOT) 11 5-34 U/L Alanine Aminotransferase (ALT/SGPT) 8 0-55 U/L Alkaline Phosphatase 67 40-136 U/L C-Reactive Protein High Sensitivity 0.70 H 0.00-0.50 MG/DL Total Protein 4.2 L 6.4-8.2 GM/DL Albumin 2.5 L 3.2-4.5 GM/DL Urine Color YELLOW Urine Clarity SLIGHTLY CLOUDY Urine pH 5 5-9 Urine Specific [place] 1.010 L 1.016-1.022 Urine Protein 1+ H NEGATIVE Urine Glucose (UA) NEGATIVE NEGATIVE Urine Ketones NEGATIVE NEGATIVE Urine Nitrite NEGATIVE NEGATIVE Urine Bilirubin NEGATIVE NEGATIVE Urine Urobilinogen NORMAL NORMAL MG/DL Urine Leukocyte Esterase 1+ H NEGATIVE Urine RBC (Auto) NEGATIVE NEGATIVE Urine RBC NONE /HPF Urine WBC NONE /HPF Urine Squamous Epithelial Cells NONE /HPF Urine Crystals NONE /LPF Urine Amorphous Sediment MOD RODRIGO URATES H /LPF Urine Bacteria NEGATIVE /HPF Urine Casts NONE /LPF Urine Mucus NEGATIVE /LPF Urine Culture Indicated NO Micro Results Microbiology 03/23/17 Influenza Types A,B Antigen (YAZ) - Final, Complete My Orders Orders - VIC VILLATORO MD Cbc With Automated Diff (03/23/17 14:18) Comprehensive Metabolic Panel (03/23/17 14:18) Hs C Reactive Protein (03/23/17 14:18) Ua Culture If Indicated (03/23/17 14:18) Influenza A And B Antigens (03/23/17 14:18) Saline Lock/Iv-Start (03/23/17 14:18) Chest 1 View, Ap/Pa Only (03/23/17 14:18) Rx-Oseltamivir Caps (Rx-Tamiflu Caps) (03/23/17 15:21) Blood Culture (03/23/17 16:21) Lactic Acid Analyzer (03/23/17 16:21) Oseltamivir Caps (Ed Only!!!) (Tamiflu C (03/23/17 16:30) Cefepime Injection (Maxipime Injection) (03/23/17 16:30) Ns Iv 1000 Ml (Sodium Chloride 0.9%) (03/23/17 16:38) General/Regular (03/23/17 Dinner) Medications Given in ED Current Medications Medications Dose Ordered Sig/Tyson Route Start Time Stop Time Status Last Admin Dose Admin Cefepime HCl 2000 mg/Sodium Chloride 50 ml @ 100 mls/hr ONCE ONCE IV 03/23/17 16:30 03/23/17 16:59 DC 03/23/17 17:19 100 MLS/HR Oseltamivir Phosphate 30 mg ONCE ONCE PO 03/23/17 16:30 03/23/17 16:31 DC 03/23/17 17:18 30 MG Sodium Chloride 1,000 ml @ 0 mls/hr Q0M ONCE IV 03/23/17 16:38 03/23/17 16:40 DC 03/23/17 17:19 1,000 MLS/HR Vital Signs/I&O Vital Sign - Last 12Hours 03/23/17 03/23/17 03/23/17 03/23/17 14:05 15:50 17:03 17:46 Temp 98.4 Pulse 84 72 80 77 Resp 18 18 18 18 B/P (MAP) 109/56 (73) 109/53 (71) 112/63 (79) Pulse Ox 88 97 95 100 O2 Delivery Room Air Nasal Cannula Nasal Cannula Nasal Cannula O2 Flow Rate 3.00 2.00 2.00 03/23/17 18:42 Pulse 83 Resp 18 Pulse Ox 98 Capillary Refill : Less Than 3 Seconds Blood Pressure Mean: 79 Progress Note : Progress Note Labs and x-ray were evaluated. Patient may have some increased opacity in the right lower lung. This may represent a recurrence of pneumonia. Patient did test positive for influenza B. She was started on renal dosing of Tamiflu (30 mg orally). Patient is being hydrated with normal saline at 200 mL per hour. Patient was empirically treated for possible pneumonia with cefepime 2 g loading dose. I discussed the patient's condition with her son and DURABLE POWER OF RAIL SIGNAL WORKER, Red Contreras. He is in agreement with transfer to [facility] for further evaluation and treatment by her nephrology team. He states he has discussed this with the patient in the past and she was agreeable previously. Patient is also full CODE STATUS per her son and shelter documentation. Case was discussed with Dr. Lopez, hospitalist at [facility]. He excepts the case. Diagnostic Imaging Diagonstic Imaging: Xray Plain Films/CT/US/NM/MRI: chest Comments Chest x-ray viewed by me. Compared with prior. Report reviewed. See report below: NAME: KATELYN LAND J MED REC#: [id number] PT STATUS: REG ER : 1940 PHYSICIAN: VIC VILLATORO MD ADMIT DATE: 03/23/17/ER Signed Date of Exam: 03/23/17 CHEST 1 VIEW, AP/PA ONLY PATIENT HISTORY: Altered mental status, lethargy. TECHNIQUE: Single frontal view of the chest. COMPARISON: 03/19/2017 and priors. FINDINGS: Lung volumes are normal. There are right basilar airspace opacities which appear mildly more prominent when compared to the previous exam. No pleural effusion or pneumothorax is seen. The cardiac silhouette is mildly prominent. There is aortic atherosclerosis. IMPRESSION: 1. Right basilar airspace opacities are mildly more prominent when compared to the prior study, may represent atelectasis or infiltrate. Dictated by: Dictated on workstation # [id number] Dict: 03/23/17 1454 Trans: 03/23/17 1545 Interpreted by: MARCOS CONTEH MD Electronically signed by: MARCOS CONTEH MD 03/23/17 1545 Departure Impression Impression: Primary Impression: ESRF (end stage renal failure) Additional Impressions: Influenza B Altered mental status Qualified Codes: R41.82 - Altered mental status, unspecified Disposition: 02 XFER SHT-TRM HOSP Condition: Improved Transfer Time Spoke to Accepting Phy: 16:40 Transfer Time: 18:58 Transfer Facility: [facility] Method of Transfer: EMS Departure-Patient Inst. Referrals: ANNALISA ELY MD (PCP/Family) Primary Care Physician VIC VILLATORO MD Mar 23, 2017 18:00
[2017-03-23 18:42] VITALS: BP 112/53
== END 2017-03-23 18:59 | disposition short-term general hospital (02) ==
LOC: EDUNIT# 14:05 → ER 14:07
DX: I12.0 Hypertensive chronic kidney disease with stage 5 chronic kidney disease or end stage renal disease (principal); E11.22 Type 2 diabetes mellitus with diabetic chronic kidney disease; N18.6 End stage renal disease; J10.1 Influenza due to other identified influenza virus with other respiratory manifestations; R41.82 Altered mental status, unspecified; F41.9 Anxiety disorder, unspecified; E78.00 Pure hypercholesterolemia, unspecified; I48.92 Unspecified atrial flutter; K21.9 Gastro-esophageal reflux disease without esophagitis; J44.9 Chronic obstructive pulmonary disease, unspecified; I25.10 Atherosclerotic heart disease of native coronary artery without angina pectoris; G25.81 Restless legs syndrome; M06.9 Rheumatoid arthritis, unspecified; Z79.4 Long term (current) use of insulin; Z79.52 Long term (current) use of systemic steroids; Z87.891 Personal history of nicotine dependence; Z86.718 Personal history of other venous thrombosis and embolism; Z98.51 Tubal ligation status; Z87.09 Personal history of other diseases of the respiratory system; Z90.710 Acquired absence of both cervix and uterus; Z90.49 Acquired absence of other specified parts of digestive tract; Z88.0 Allergy status to penicillin; Z88.5 Allergy status to narcotic agent; Z88.4 Allergy status to anesthetic agent; Z88.6 Allergy status to analgesic agent; Z79.01 Long term (current) use of anticoagulants
CPT/HCPCS: 36415; 51702; 71045; 80053; 81000; 83605; 85025; 86141; 87040; 87804; 96361; 96365

== ENCOUNTER 2017-04-18 07:10 | Inpatient (IN) | payer MEDICARE, MEDICAID ==
[~2017-04-18] VITALS: Ht 162.6 cm; Wt 72.6 kg
[2017-04-18] MEDS ORDERED: DEXTROSE 50% 50 ML (IMS) SYR ONE (07:11)
[2017-04-18] MEDS ORDERED: NS IV 500 ML 500 ML IV ONE ×2 (07:21→10:38)
--- NOTE | 2017-04-18 08:07 | ED General ---
General Stated Complaint: UNRESPONSIVE Source of Information: Patient, EMS, Half-Way Records Exam Limitations: Physical Impairments History of Present Illness Date Seen by Provider: Apr 18, 2017 Time Seen by Provider: 07:17 Initial Comments Here by EMS with report of unresponsive this morning at the alf. Apparently blood sugar noted to be 40. jail personnel did try oral glucose which did not change anything. EMS did give 1 amp of D50 which slightly improved her mental status. Arrives confused and not answering questions well. Does have history of diabetes and does take insulin and long- acting insulin. Recently hospitalized for pneumonia and sepsis per records. Patient has Perry catheter. Currently afebrile the concerns for substance. Patient does not answer questions well due to medical condition. Timing/Duration: 1 Hour Severity: Moderate, Severe Associated Systoms: No Shortness of Air, Weakness Allergies and Home Medications Allergies Coded Allergies: Penicillins (Verified Allergy, Severe, RASH, 09/15/16) procaine (Verified Allergy, Severe, HIVES, 09/15/16) codeine (Verified Allergy, Mild, 01/09/17) morphine (Verified Allergy, Mild, 01/09/17) fentanyl (Verified Allergy, Unknown, 01/09/17) meperidine (Verified Adverse Reaction, Intermediate, SLEEP, 09/15/16) Home Medications Acetaminophen 325 Mg Tablet, 325-650 MG PO Q6H PRN for PAIN-MILD, (Reported) Albuterol Sulfate 1 Puff Puff, 2 PUFF IH QID PRN for SHORTNESS OF BREATH, ( Reported) 1 PUFF = 90 MCG Allopurinol 100 Mg Tablet, 100 MG PO DAILY, (Reported) Alprazolam 0.5 Mg Tablet, 0.5 MG PO TID PRN for ANXIETY, (Reported) Apixaban 5 Mg Tablet, 10 MG PO BID 10 mg twice a day for 7 days then reduce to 5 mg twice a day thereafter Prescribed by: AYAAN BROWN on 03/19/17 151 Apixaban 5 Mg Tablet, 5 MG PO BID Prescribed by: AYAAN BROWN on 03/19/17 1515 Atorvastatin Calcium 10 Mg Tablet, 10 MG PO HS, (Reported) Cholecalciferol (Vitamin D3) 1,000 Unit Capsule, 1,000 UNITS PO DAILY, (Reported ) Docusate Sodium 100 Mg Capsule, 100 MG PO HS PRN for CONSTIPATION-1ST LINE, ( Reported) Furosemide 80 Mg Tablet, 80 MG PO BID, (Reported) Guaifenesin/Dextromethorphan 237 Ml Liquid, 5 ML PO Q4H PRN for COUGH/CONGESTION , (Reported) Insulin Aspart 300 Units/3 Ml Solution, SC ACHS, (Reported) 151-200 = 2 UNITS 201-250 = 4 UNITS 251-300 = 6 UNITS 301-350 = 8 UNITS 351- 400 =10 UNITS >400 = CALL PHYSICIAN Insulin Determir 1,000 Units/10 Ml Soln, 10 UNITS SQ DAILY, (Reported) Melatonin 10 Mg Capsule, 10 MG PO HS PRN for INSOMNIA, (Reported) Metolazone 2.5 Mg Tablet, 2.5 MG PO DAILY, (Reported) Metronidazole 500 Mg Tablet, 500 MG PO TID Prescribed by: NIVIA MCGRATH on 03/13/17 1039 Nicotine Polacrilex 4 Mg Lozenge, 4 MG BC Q6H PRN for SMOKING CESSATION, ( Reported) Pantoprazole Sodium 40 Mg Tablet.dr, 40 MG PO DAILY, (Reported) Potassium Chloride 20 Meq Tab.er.prt, 20 MEQ PO BID, (Reported) Pramipexole Di-HCl 1 Mg Tablet, 1 MG PO HS, (Reported) Pramipexole Di-HCl 0.25 Mg Tablet, 0.25 MG PO HS, (Reported) Prednisone 20 Mg Tab, 30 MG PO DAILY, (Reported) Propranolol HCl 10 Mg Tablet, 10 MG PO DAILY, (Reported) Quetiapine Fumarate 25 Mg Tablet, 25 MG PO HS, (Reported) Vits A and D/White Pet/Lanolin 42.5 Gm Oint...g., TP DAILY, (Reported) APPLY TO LEGS FOR DRY SKIN Zinc Oxide 28 Gm Oint, TP TID, (Reported) CLEANSE CLEFT WITH SOAP AND WATER, PAT DRY, AND APPLY THREE TIMES PER DAY Constitutional: see HPI, No chills, No fever EENTM: no symptoms reported Respiratory: no symptoms reported Gastrointestinal: other (concern for possible C. difficile infection) Genitourinary: see HPI Other Unable to complete review of systems due to altered mental status Past Wbxoovh-Cbqjgx-Zfzfnm Hx Patient Social History Alcohol Use: Denies Use Recreational Drug Use: No Smoking Status: Former Smoker Type Used: Cigarettes Former Smoker, Quit: Mar 09, 1966 2nd Hand Smoke Exposure: No Recent Hopitalizations: No Immunizations Up To Date Tetanus Booster (TDap): Unknown Date of Pneumonia Vaccine: Dec 28, 2016 Date of Influenza Vaccine: Dec 12, 2016 Seasonal Allergies Seasonal Allergies: No Surgeries History of Surgeries: Yes (NERVE FUSION) Surgeries: Appendectomy, Gallbladder, Hysterectomy, Tubal Ligation Respiratory History of Respiratory Disorde: Yes Respiratory Disorders: Pneumonia, COPD Currently Using CPAP: No Currently Using BIPAP: No Cardiovascular History of Cardiac Disorders: Yes (atrial flutter (per [facility] records), heart failure, arteritis) Cardiac Disorders: Chronic Edema/Swelling, Coronary Artery Disease, Deep Vein Thrombosis, High Cholesterol, Hypertension Neurological History of Neurological Disord: Yes (Restless leg syndrome, generalized muscle weakness) Reproductive System Sexually Transmitted Disease: No HIV/AIDS: No Genitourinary History of Genitourinary Disor: Yes Genitourinary Disorders: Renal Failure Gastrointestinal History of Gastrointestinal Di: Yes Gastrointestinal Disorders: Gastroesophageal Reflux Musculoskeletal History of Musculoskeletal Dis: Yes Musculoskeletal Disorders: Rheumatoid Arthritis, Gout Endocrine History of Endocrine Disorders: Yes Endocrine Disorders: Diabetes, Insulin dep HEENT History of HEENT Disorders: No HEENT Disorders: Cataract Loss of Vision: Denies Hearing Impairment: Denies Cancer History of Cancer: No Psychosocial History of Psychiatric Problem: Yes Behavioral Health Disorders: Anxiety Integumentary History of Skin or Integumenta: No Blood Transfusions History of Blood Disorders: Yes (anemia) Reviewed Nursing Assessment Reviewed/Agree w Nursing PMH: Yes Family Medical History Significant Family History: No Pertinent Family Hx Family Medial History: Patient reports no known family medical history. Physical Exam Vital Signs Vital Signs - First Documented Capillary Refill : General Appearance: No Apparent Distress, WD/WN HEENT: PERRL/EOMI, Pharynx Normal Neck: Non Tender, Supple Respiratory: Lungs Clear, Normal Breath Sounds Cardiovascular: Regular Rate, Rhythm, No Murmur Gastrointestinal: Non Tender, Soft Back: Normal Inspection, No CVA Tenderness, No Vertebral Tenderness Extremity: Normal Range of Motion, Non Tender Neurologic/Psychiatric: Alert, Oriented x3 Skin: Normal Color, Warm/Dry Focused Exam Evaluation Lactate Level Laboratory Tests 04/18/17 08:44: Lactic Acid Level 1.22 Lactic Acid Level Lumen: triple Central Line Procedure: betadine prep, sterile drapes applied, sterile dressing applied Position: internal jugular (R) Anesthesia: Lidocaine Volume Anesthetic (ccs): 3 Complications: none Post Position: sutured, good blood return, position confirmed w/ CXR Progress Placed via ultrasound guidance 3 sticks with no complications. Was brief carotid access. Needle moved to the internal jugular and position confirmed by ultrasound. Tolerated procedure well with no complications. Progress/Results/Core Measures Suspected Sepsis SIRS Temperature: Pulse: Respiratory Rate: Laboratory Tests 04/18/17 07:30: White Blood Count 16.4H Blood Pressure / Mean: Laboratory Tests 04/18/17 08:44: Lactic Acid Level 1.22 Laboratory Tests 04/18/17 07:30: Platelet Count 285 04/18/17 08:44: Creatinine 2.10H, INR Comment 1.8H, Total Bilirubin 0.4 Results/Orders Lab Results Laboratory Tests Test 04/18/17 07:15 04/18/17 07:30 04/18/17 07:53 04/18/17 08:44 Range/Units Glucometer 160 H 95 70-110 MG/DL White Blood Count 16.4 H 4.3-11.0 10^3/uL Red Blood Count 3.83 L 4.35-5.85 10^6/uL Hemoglobin 11.8 11.5-16.0 G/DL Hematocrit 38 35-52 % Mean Corpuscular Volume 99 80-99 FL Mean Corpuscular Hemoglobin 31 25-34 PG Mean Corpuscular Hemoglobin Concent 31 L 32-36 G/DL Red Cell Distribution Width 17.0 H 10.0-14.5 % Platelet Count 285 130-400 10^3/uL Mean Platelet Volume 11.4 H 7.4-10.4 FL Neutrophils (%) (Auto) 88 H 42-75 % Lymphocytes (%) (Auto) 8 L 12-44 % Monocytes (%) (Auto) 4 0-12 % Eosinophils (%) (Auto) 0 0-10 % Basophils (%) (Auto) 0 0-10 % Neutrophils # (Auto) 14.4 H 1.8-7.8 X 10^3 Lymphocytes # (Auto) 1.3 1.0-4.0 X 10^3 Monocytes # (Auto) 0.7 0.0-1.0 X 10^3 Eosinophils # (Auto) 0.0 0.0-0.3 10^3/uL Basophils # (Auto) 0.0 0.0-0.1 10^3/uL Neutrophils % (Manual) 80 % Lymphocytes % (Manual) 8 % Monocytes % (Manual) 5 % Eosinophils % (Manual) 1 % Basophils % (Manual) 0 % Myelocytes % 1 % Band Neutrophils 5 % Anisocytosis SLIGHT Urine Color YELLOW Urine Clarity SLIGHTLY CLOUDY Urine pH 5 5-9 Urine Specific [place] 1.015 L 1.016-1.022 Urine Protein 3+ H NEGATIVE Urine Glucose (UA) 1+ H NEGATIVE Urine Ketones NEGATIVE NEGATIVE Urine Nitrite NEGATIVE NEGATIVE Urine Bilirubin NEGATIVE NEGATIVE Urine Urobilinogen NORMAL NORMAL MG/DL Urine Leukocyte Esterase 3+ H NEGATIVE Urine RBC (Auto) 4+ H NEGATIVE Urine RBC 2-5 H /HPF Urine WBC TNTC H /HPF Urine Squamous Epithelial Cells 2-5 /HPF Urine Crystals NONE /LPF Urine Bacteria FEW H /HPF Urine Casts NONE /LPF Urine Mucus NEGATIVE /LPF Urine Yeast MODERATE H /HPF Urine Culture Indicated YES Prothrombin Time 21.1 H 12.2-14.7 SEC INR Comment 1.8 H 0.8-1.4 Activated Partial Thromboplast Time 29 24-35 SEC Sodium Level 148 H 135-145 MMOL/L Potassium Level 4.0 3.6-5.0 MMOL/L Chloride Level 99 98-107 MMOL/L Carbon Dioxide Level 36 H 21-32 MMOL/L Anion Gap 13 5-14 MMOL/L Blood Urea Nitrogen 103 *H 7-18 MG/DL Creatinine 2.10 H 0.60-1.30 MG/DL Estimat Glomerular Filtration Rate 23 BUN/Creatinine Ratio 49 Glucose Level 252 H 70-105 MG/DL Lactic Acid Level 1.22 0.50-2.00 MMOL/L Calcium Level 9.5 8.5-10.1 MG/DL Total Bilirubin 0.4 0.1-1.0 MG/DL Aspartate Amino Transf (AST/SGOT) 16 5-34 U/L Alanine Aminotransferase (ALT/SGPT) 10 0-55 U/L Alkaline Phosphatase 96 40-136 U/L Total Protein 5.4 L 6.4-8.2 GM/DL Albumin 3.1 L 3.2-4.5 GM/DL Test 04/18/17 12:04 Range/Units Glucometer 111 H 70-110 MG/DL My Orders Orders - RENE MARKS MD Cbc With Automated Diff (04/18/17 07:21) Comprehensive Metabolic Panel (04/18/17 07:21) Lactic Acid Analyzer (04/18/17 07:21) Blood Culture (04/18/17 07:21) Sputum Culture (04/18/17 07:21) Ua Culture If Indicated (04/18/17 07:21) Protime With Inr (04/18/17 07:21) Partial Thromboplastin Time (04/18/17 07:21) Chest 1 View, Ap/Pa Only (04/18/17 07:21) O2 (04/18/17 07:21) Saline Lock/Iv-Start (04/18/17 07:21) Vital Signs Adult Sepsis Patie Q1H (04/18/17 07:21) Remove Rings In Anticipation O (04/18/17 07:21) Ns Iv 500 Ml (Sodium Chloride 0.9%) (04/18/17 07:21) D50w (Emergency) Syringe (Dextrose 50% 5 (04/18/17 08:30) Manual Differential (04/18/17 07:30) Urine Culture (04/18/17 07:30) D50w (Emergency) Syringe (Dextrose 50% 5 (04/18/17 07:11) Ceftriaxone Injection (Rocephin Injectio (04/18/17 10:45) Saline Lock/Iv-Start (04/18/17 10:38) Ns Iv 500 Ml (Sodium Chloride 0.9%) (04/18/17 10:38) Chest 1 View, Ap/Pa Only (04/18/17 12:27) Medications Given in ED Current Medications Medications Dose Ordered Sig/Tyson Route Start Time Stop Time Status Last Admin Dose Admin Ceftriaxone Sodium 1000 mg/ Sodium Chloride 50 ml @ 100 mls/hr ONCE ONCE IV 04/18/17 10:45 04/18/17 11:14 DC 04/18/17 10:41 100 MLS/HR Dextrose 50 ml ONCE ONCE IV 04/18/17 08:30 04/18/17 08:31 DC 04/18/17 07:53 50 ML Sodium Chloride 500 ml @ 0 mls/hr Q0M ONCE IV 04/18/17 07:21 04/18/17 07:23 DC 04/18/17 07:50 500 MLS/HR Sodium Chloride 500 ml @ 0 mls/hr Q0M ONCE IV 04/18/17 10:38 04/18/17 10:40 DC 04/18/17 10:43 500 MLS/HR Vital Signs/I&O Vital Sign - Last 12Hours 04/18/17 04/18/17 07:12 07:12 Temp 97.2 Pulse 84 Resp 24 B/P (MAP) 107/65 (79) Pulse Ox 96 95 O2 Delivery Nasal Cannula Nasal Cannula O2 Flow Rate 5.00 3.00 Capillary Refill : Progress Note : Progress Note Seen and evaluated. IV, labs and UA, blood cultures and lactic acid ordered given patient's recent bout of pneumonia, hypoglycemia this morning and altered mental status. Normal saline 500 mL bolus ordered. Monitor patient. Repeat of D50 due to declining blood sugar. 0830: Patient's granddaughter arrives and in room and patient now has improved mental status after fluids and sugar. Continue to monitor. IV line loss and patient has poor access. UA does note significant urinary tract infection. 1131: I have discussed the case with Dr. Cope is patient needs admission. Patient is DO NOT RESUSCITATE and I will consult palliative care to evaluate related to her chronic medical conditions. Patient has had intermittent low blood pressure but not sustained. Lactic acid is negative and right now does not show findings of septic shock or the need for high volume fluid resuscitation. Patient has chronic renal failure and has chronic elevated serum creatinine. Patient is also on novel oral anticoagulants and INR is not reflective of true patient values due to this medication. Patient does need hydration but rapid hydration with septic protocol with the dangers in the setting of her renal failure. We have repeated the bolus of 500 mL of normal saline will continue that 125 an hour. I did discuss the idea palliative care consult with the granddaughter. The family is considering hospice but are waiting for the return of one of the patient's sons early next week to make a final consideration on that. Admit, inpatient status. Patient and family agree with plan. Diagnostic Imaging Diagonstic Imaging: Xray Plain Films/CT/US/NM/MRI: chest Comments NAME: KATELYN [facility] REC#: [id number] PT STATUS: REG ER : 1940 PHYSICIAN: RENE MARKS MD ADMIT DATE: 04/18/17/ER Signed Date of Exam: 04/18/17 CHEST 1 VIEW, AP/PA ONLY INDICATION: Unresponsive and electrolyte imbalance. Portable upright AP view of the chest is obtained with comparison made study of 03/23/2017. FINDINGS: There is mild cardiomegaly with pulmonary vascularity at the upper limits of normal. There has been mild increase in basilar atelectasis and/or pneumonitis with blunting of the left costophrenic sulcus. IMPRESSION: Increasing basilar atelectasis and/or pneumonitis with mild left pleural effusion. Dictated by: Dictated on workstation # [id number] Dict: 04/18/17 0817 Trans: 04/18/17 1001 Interpreted by: KAMAR MONK MD Electronically signed by: KAMAR MONK MD 04/18/17 1001 Diagonstic Imaging: Xray Plain Films/CT/US/NM/MRI: chest Comments VIA [facility], [facility]. [place], [place] NAME: [facility]N [facility] REC#: [id number] PT STATUS: REG ER : 1940 PHYSICIAN: RENE MARKS MD ADMIT DATE: 04/18/17/ER Draft Date of Exam:04/18/17 CHEST 1 VIEW, AP/PA ONLY Indication: Central line placement. Findings: Portable chest shows placement of a central line from the right jugular approach. Tip is in the SVC above the right atrium. There is no pneumothorax. There is no other change from the earlier exam. Impression: Jugular line tip is in the SVC above the right atrium. Dictated on workstation # [id number] Dict: 04/18/17 1300 Trans: 04/18/17 1302 CV [id number] Interpreted by: MARCIA ALCANTAR MD Electronically signed by: Departure Communication (Admissions) Time/Spoke to Admitting Phy: 11:31 Impression Impression: Primary Impression: Urinary tract infection Qualified Codes: N30.00 - Acute cystitis without hematuria Additional Impression: Hypoglycemia associated with diabetes Disposition: ADMITTED INPATIENT Condition: Stable Admissions Decision to Admit Reason: Admit from ER (General) Decision to Admit/Date: Apr 18, 2017 Time/Decision to Admit Time: 11:31 Departure-Patient Inst. Referrals: ANNALISA ELY MD (PCP/Family) Primary Care Physician RENE MARKS MD Apr 18, 2017 08:07
--- NOTE | 2017-04-18 08:23 | Diagnostic Imaging Report ---
INDICATION: Unresponsive and electrolyte imbalance. Portable upright AP view of the chest is obtained with comparison made study of 03/23/2017. FINDINGS: There is mild cardiomegaly with pulmonary vascularity at the upper limits of normal. There has been mild increase in basilar atelectasis and/or pneumonitis with blunting of the left costophrenic sulcus. IMPRESSION: Increasing basilar atelectasis and/or pneumonitis with mild left pleural effusion. Dictated by: Dictated on workstation # [id number]
[2017-04-18 08:26] LABS: BILIRUBIN,URINE NEGATIVE (NEGATIVE); CLARITY,URINE SLIGHTLY CLOUDY; COLOR,URINE YELLOW; GLUCOSE, URINE (UA) 1+ (NEGATIVE); KETONES,URINE NEGATIVE (NEGATIVE); LEUKOCYTE ESTERASE ,URINE 3+ (NEGATIVE); NITRITE,URINE NEGATIVE (NEGATIVE); PH,URINE 5 (5-9); PROTEIN,URINE 3+ (NEGATIVE); UROBILINOGEN,URINE NORMAL (NORMAL)
[2017-04-18 08:28] LABS: BASOPHILS % (AUTO) 0 % (0-10); EOSINOPHILS % (AUTO) 0 % (0-10); HEMATOCRIT 38 % (35-52); HEMOGLOBIN 11.8 G/DL (11.5-16.0); LYMPHOCYTES # (AUTO) 1.3 X 10^3 (1.0-4.0); LYMPHOCYTES % (AUTO) 8 % (12-44); MEAN CORPUSCULAR HEMOGLOBIN 31 PG (25-34); MEAN CORPUSCULAR HGB CONC 31 G/DL (32-36); MEAN CORPUSCULAR VOLUME 99 FL (80-99); MEAN PLATELET VOLUME 11.4 FL (7.4-10.4); MONOCYTES # (AUTO) 0.7 X 10^3 (0.0-1.0); MONOCYTES % (AUTO) 4 % (0-12); NEUTROPHILS # (AUTO) 14.4 X 10^3 (1.8-7.8); NEUTROPHILS % (AUTO) 88 % (42-75); PLATELET COUNT 285 10^3/uL (130-400); RED BLOOD COUNT 3.83 10^6/uL (4.35-5.85); WHITE BLOOD COUNT 16.4 10^3/uL (4.3-11.0)
[2017-04-18] MEDS ORDERED: DEXTROSE 50% 50 ML (IMS) SYR IV ONE (08:30)
[2017-04-18 08:34] LABS: BACTERIA,URINE FEW /HPF; WBC,URINE TNTC /HPF
[2017-04-18 08:35] LABS: YEAST,URINE MODERATE /HPF
[2017-04-18 08:53] LABS: BAND NEUTROPHILS 5 %; BASOPHILS % (MANUAL) 0 %; EOSINOPHILS % (MANUAL) 1 %; LYMPHOCYTES % (MANUAL) 8 %; MONOCYTES % (MANUAL) 5 %; MYELOCYTES % 1 %; NEUTROPHILS % (MANUAL) 80 %
[2017-04-18 08:54] LABS: ANISOCYTOSIS SLIGHT
[2017-04-18 09:07] LABS: INR 1.8 (0.8-1.4); PROTHROMBIN TIME PATIENT 21.1 SEC (12.2-14.7)
[2017-04-18 09:18] LABS: ALBUMIN 3.1 GM/DL (3.2-4.5); BILIRUBIN,TOTAL 0.4 MG/DL (0.1-1.0); CALCIUM 9.5 MG/DL (8.5-10.1); CREATININE SERUM 2.1 MG/DL (0.60-1.30); TOTAL PROTEIN 5.4 GM/DL (6.4-8.2)
[2017-04-18] MEDS ORDERED: cefTRIAXone INJECTION 1,000 MG in NS (IVPB) 50 ML IV ONE (10:45)
--- NOTE | 2017-04-18 13:02 | Diagnostic Imaging Report ---
Indication: Central line placement. Findings: Portable chest shows placement of a central line from the right jugular approach. Tip is in the SVC above the right atrium. There is no pneumothorax. There is no other change from the earlier exam. Impression: Jugular line tip is in the SVC above the right atrium. Dictated by: Dictated on workstation # [id number]
[2017-04-18] MEDS ORDERED: NS IV 1000 ML 1,000 ML ONE (13:34)
[2017-04-18] MEDS ORDERED: GABA-488 PO (14:39)
[2017-04-18] MEDS ORDERED: ACHD5005 PO (14:39)
[2017-04-18] MEDS ORDERED: CHOL210P2 PO (14:39)
[2017-04-18] MEDS ORDERED: LACT1CAP65 PO (14:39)
[2017-04-18] MEDS ORDERED: APIX5TAB PO (14:39)
[2017-04-18] MEDS ORDERED: ATOR10TA66 PO (14:39)
[2017-04-18] MEDS ORDERED: TORS20TA2 PO (14:39)
[2017-04-18] MEDS ORDERED: KETO15CR2 TP (14:39)
[2017-04-18] MEDS ORDERED: NYST1POW22 TOP (14:39)
[2017-04-18] MEDS ORDERED: CATHETER FLUSH 10 ML SYR IV PRN (16:45)
[2017-04-18] MEDS ORDERED: NS IV 1000 ML 1,000 ML IV SCH ×2 (16:45)
[2017-04-18] MEDS ORDERED: ARTIFICIAL TEARS OINT (LACRI-LUBE) 3.5 GM TUBE OU PRN (17:15)
[2017-04-18] MEDS ORDERED: BISACODYL 10 MG SUPP (DULCOLAX) PR PRN (17:15)
[2017-04-18] MEDS ORDERED: GLYCOPYRROLATE 0.2 MG/ML (ROBINUL) 2 ML VIAL IV PRN (17:15)
[2017-04-18] MEDS ORDERED: ARTIFICAL TEARS 0.4 ML UNIT DOSE (REFRESH PLUS) OU PRN (17:15)
[2017-04-18] MEDS ORDERED: RT-ALBUTEROL/IPRATROPIUM 3 ML (DUONEB) VIAL INH PRN (17:15)
[2017-04-18] MEDS ORDERED: ACETAMINOPHEN 650 MG SUPP (TYLENOL) PR PRN (17:15)
[2017-04-18] MEDS ORDERED: LORazepam INJ 2 MG/ML (ATIVAN) VIAL IVP PRN (17:15)
[2017-04-18] MEDS ORDERED: ONDANSETRON 4 MG/2 ML (SDV) Z0FRAN IVP PRN (17:15)
[2017-04-18] MEDS ORDERED: SALIVA STIMULANT MOUTH SPRAY (BIOTENE) 1.5 OZ MM PRN (17:15)
[2017-04-18] MEDS: HYDROmorphone (DILAUDID) 2 MG/ML VIAL IVP PRN ×2 (18:06→22:09)
[2017-04-18] MEDS ORDERED: inSUlin (REGULAR) HUMAN 1 UNIT/0.01 ML (CHARGE PER UNIT) SC SCH (19:30)
[2017-04-19] MEDS: HYDROmorphone (DILAUDID) 2 MG/ML VIAL IVP PRN ×4 (02:21→12:34)
[2017-04-19] MEDS ORDERED: cefTRIAXone 1 GM/NS 50 ML IVPB IV SCH ×2 (09:00)
--- NOTE | 2017-04-19 10:25 | Short Stay Summary-Hospitalist ---
HPI History of Present Illness: HPI/Chief Complaint CC: Multi-system organ failure HPI: This is 77 [facility]WF [facility] pt of Dr. Johnson that presents with severe sepsis and multi-system organ failure. After aggressive treatment, family requested comfort care protocol, so all ordered changed. DC on hospice to [facility] today : Pt Interview: Palliative care accompanied me during interview and the following interview was conducted with pt's daughter: Pt's youngest daughter was visiting the pt. Pt was asleep upon interview. Pt's daughter states she ate a bit today, it was a donut, but daughter was okay with this even though pt has DM Palliative Care discussed returning to [facility] today. Daughter confirms [facility] Daughter states she was unhappy with [place] and is much happy with the treatment hear Daughter confirms PCP as Dr. Johnson Daughter states pt's urine looked much better. Palliative care discussed allergy to Morphine but not fentanyl so that was corrected Physical exam stable but end-stage Scribed by Sushma Eaton under direct supervision of Dr. Melany Crane. Source: patient Exam Limitations: no limitations Date Seen 04/19/17 Time Seen by Provider: 10:00 Attending Physician Melany Crane DO PCP Ganga Johnson MD Referring Physician Date of Admission Apr 18, 2017 at 14:09 Home Medications & Allergies Home Medications Reviewed patient Home Medication Reconciliation Form Allergies Allergies Coded Allergies Penicillins (Verified Allergy, Severe, RASH, 09/15/16) procaine (Verified Allergy, Severe, HIVES, 09/15/16) codeine (Verified Allergy, Mild, 01/09/17) morphine (Verified Allergy, Mild, 01/09/17) meperidine (Verified Adverse Reaction, Intermediate, SLEEP, 09/15/16) Past Burmqxy-Jfqgvq-Pilpov Hx Patient Social History Marrital Status: single Employed/Student: retired Alcohol Use: Denies Use Recreational Drug Use: No Smoking Status: Former Smoker Former Smoker, Quit: Mar 09, 1966 Type Used: Cigarettes 2nd Hand Smoke Exposure: No Physical Abuse Screen: No Sexual Abuse: No Recent Foreign Travel: No Contact w/other who traveled: No Recent Hopitalizations: Yes Recent Infectious Disease Expo: No Immunizations Up To Date Tetanus Booster (TDap): Unknown Date of Pneumonia Vaccine: Dec 28, 2016 Date of Influenza Vaccine: Dec 12, 2016 Seasonal Allergies Seasonal Allergies: No Surgeries Yes (NERVE FUSION) Appendectomy, Gallbladder, Hysterectomy, Tubal Ligation, Urinary Diversion Respiratory Yes COPD Currently Using CPAP: No Currently Using BIPAP: No Cardiovascular Yes (atrial flutter (per [facility] records), heart failure, arteritis) Chronic Edema/Swelling, Coronary Artery Disease, Deep Vein Thrombosis, High Cholesterol, Hypertension Neurological Yes (Restless leg syndrome, generalized muscle weakness) Reproductive System Sexually Transmitted Disease: No HIV/AIDS: No Genitourinary Yes Bladder Infection, Renal Failure Gastrointestinal Yes Gastroesophageal Reflux Musculoskeletal Yes Rheumatoid Arthritis, Gout Endocrine History of Endocrine Disorders: Yes Endocrine Disorders: Diabetes, Insulin dep HEENT History of HEENT Disorders: No HEENT Disorders: Cataract Loss of Vision: Denies Hearing Impairment: Denies Cancer No Psychosocial History of Psychiatric Problem: Yes Behavioral Health Disorders: Anxiety Integumentary History of Skin or Integumenta: No Blood Transfusions History of Blood Disorders: Yes (anemia) Reviewed Nursing Assessment Reviewed/Agree w Nursing PMH: Yes Family Medical History Significant Family History: No Pertinent Family Hx Family Hx: Patient reports no known family medical history. Review of Systems ROS-Unable to Obtain: Unable to ascertain due to end-stage near vegetative state Constitutional: see HPI Physical Exam Physical Exam Vital Signs Vital Signs - First Documented Capillary Refill : Greater Than 3 Seconds General Appearance: No Apparent Distress, WD/WN, Chronically ill, Other ( Unresponsive) Eyes: Bilateral Eye Normal Inspection, Bilateral Eye PERRL Respiratory: Lungs Clear, Normal Breath Sounds, No Accessory Muscle Use Cardiovascular: Regular Rate, Rhythm, No Edema, No Gallop, No JVD, No Murmur, Normal Peripheral Pulses Gastrointestinal: Normal Bowel Sounds, No Organomegaly, No Pulsatile Mass, Soft Extremity: Normal Capillary Refill, Normal Inspection, Normal Range of Motion, Non Tender, No Calf Tenderness, No Pedal Edema Neurologic/Psychiatric: Other (Near comatose) Skin: Cool, Damp Lymphatic: No Adenopathy Results Results/Procedures Lab Laboratory Tests 04/18/17 07:30 04/18/17 08:44 Short Stay Diagnosis Discharge Diagnosis-Short Stay Admission Diagnosis Assessment: Severe sepsis but end-of-life palliative care initiated Acute on chronic renal failure unrecoverable Diabetes mellitus end-stage Dementia Aleyda-area excoriation with decubitus ulcers Final Discharge Diagnosis Assessment: Severe sepsis but end-of-life palliative care initiated Acute on chronic renal failure unrecoverable Diabetes mellitus end-stage Dementia Aleyda-area excoriation with decubitus ulcers Conclusion Plan Plan: Review pain meds [facility] to [facility] Clinical Quality Measures DVT/VTE Risk/Contraindication: Risk Factor Score Per Nursin RFS Level Per Nursing on Admit: 4+=Very High MELANY CRANE DO Apr 19, 2017 10:25
[2017-04-19] MEDS ORDERED: LORA2ORA PO (10:48)
[2017-04-19] MEDS ORDERED: OXYC20OR15 PO (10:48)
--- NOTE | 2017-04-19 11:38 | Physician Query Clarification ---
PQ-Further Specificity Admission/Discharge Admission Date: Apr 18, 2017 at 14:09 Discharge Date: The medical record reflects the following clinical scenario: History/Risk Factors: Severe Sepsis Clinical Findings: T 97.2, Pulse 84, Resp 24, WBC 16.4, Bands 5, Lactic acid 1.22, Creatinine 2.10 , BUN 103, Est GFR 23. Treatment: IV Ceftriaxone, IV Sodium Chloride, IV Dextrose Question: Can you further specify Multi Organ Failure per the clinical indicators above? Please document the specified types of organ failure below. 1. Renal failure with end stage metabolic encephalopathy 2. 3. Other, with explanation of the clinical findings. 4. Clinically undetermined, no explanation for the clinical findings. PHYSICIAN RESPONSE Can you specify per above: 1 In responding to this query, please exercise your independent professional judgment. The purpose of this communication is to more accurately reflect the complexity of your patients condition. The fact that a question is asked does not imply that any particular answer is desired or expected. Thank you for your timely response to this clarification. Requestors name: Alma Bustillo [facility] Phone # ext [phone] or [phone] THIS PHYSICIAN QUERY FORM IS A PERMANENT PART OF THE MEDICAL RECORD ALMA BUSTILLO Apr 19, 2017 11:38 BRIGHT CRANE DO Apr 20, 2017 08:10
--- NOTE | 2017-04-19 11:43 | Physician Query Clarification ---
PQ-Link Infection to Dev/Proc Admission/Discharge Admission Date: Apr 18, 2017 at 14:09 Discharge Date: The medical record reflects the following clinical scenario: History/Risk Factors: UTI Admitted with aguilar catheter Clinical Findings: list no more than 2 Treatment: Yeast species 10,000/ML-100,000/ML Question: Can you specify if the UTI is due to/associated with aguilar catheter? Also please list specified organism, if known. Please document a response below. PHYSICIAN RESPONSE Specify if infection: Yes,due to/associated with device (yeast) In responding to this query, please exercise your independent professional judgment. The purpose of this communication is to more accurately reflect the complexity of your patients condition. The fact that a question is asked does not imply that any particular answer is desired or expected. Thank you for your timely response to this clarification. Requestors name: Alma Bustillo [facility] Phone # ext [phone] or [phone] THIS PHYSICIAN QUERY FORM IS A PERMANENT PART OF THE MEDICAL RECORD ALMA BUSTILLO Apr 19, 2017 11:43 BRIGHT CRANE DO Apr 20, 2017 08:11
[2017-04-19 13:30] VITALS: BP 100/52
== END 2017-04-19 13:30 | disposition hospice, inpatient (51) | DRG 698 ==
LOC: EDUNIT# 07:10 → ER 07:12 → 4TH 14:09
PROVIDERS: ADMIT Internal Medicine; ATTEND Internal Medicine
PROC: 02HV33Z Insertion of Infusion Device into Superior Vena Cava, Percutaneous Approach (ICD-10-PCS; principal; 2017-04-18)
DX: T83.511A Infection and inflammatory reaction due to indwelling urethral catheter, initial encounter (principal); A41.9 Sepsis, unspecified organism; R65.20 Severe sepsis without septic shock; N30.00 Acute cystitis without hematuria; N17.9 Acute kidney failure, unspecified; G93.41 Metabolic encephalopathy; B37.49 Other urogenital candidiasis; Z51.5 Encounter for palliative care; Z66 Do not resuscitate; I13.0 Hypertensive heart and chronic kidney disease with heart failure and stage 1 through stage 4 chronic kidney disease, or unspecified chronic kidney disease; N18.9 Chronic kidney disease, unspecified; I50.9 Heart failure, unspecified; E11.649 Type 2 diabetes mellitus with hypoglycemia without coma; E11.22 Type 2 diabetes mellitus with diabetic chronic kidney disease; I25.10 Atherosclerotic heart disease of native coronary artery without angina pectoris; L89.90 Pressure ulcer of unspecified site, unspecified stage; E78.00 Pure hypercholesterolemia, unspecified; J44.9 Chronic obstructive pulmonary disease, unspecified; G25.81 Restless legs syndrome; K21.9 Gastro-esophageal reflux disease without esophagitis; M06.9 Rheumatoid arthritis, unspecified; M10.9 Gout, unspecified; F41.9 Anxiety disorder, unspecified; Z87.891 Personal history of nicotine dependence; Z79.4 Long term (current) use of insulin; Z86.718 Personal history of other venous thrombosis and embolism; Z87.01 Personal history of pneumonia (recurrent)
CPT/HCPCS: 36415; 71045; 80053; 81000; 82962; 83605; 85007; 85027; 85610; 85730; 87040; 87088; 96361; 96374; 96375